=== PATIENT | male | born 1955 | race Caucasian/White ===

== ENCOUNTER → 2020-01-18 | Outpatient (CLI) | payer OTHER ==
--- NOTE | 2020-01-18 09:12 | MR ---
EXAMINATION TYPE: MR lumbar spine wo con DATE OF EXAM: 01/18/2020 COMPARISON: MRI lumbar spine June 15, 2015 HISTORY: Lumbar disc prolapse, radiculopathy TECHNIQUE: Multiplanar, multisequence imaging of the lumbar spine is performed without IV contrast. FINDINGS: Sagittal images of the lumbar spine show vertebral body heights height to remain satisfacto ry. Multilevel spondylolisthesis or grade 1 retrolisthesis L2 on L3, L3 on L4, and L4 and L5 all rede monstrated. Multilevel disc desiccation redemonstrated. This space heights fairly well maintained. T he conus medullaris remains normal in position and signal in the mid L1 level. The bone marrow signa l intensity is within normal limits. Fairly mild multilevel anterior spurring remains present. Tiny S chmorl node at superior L1 1 endplate sagittal image 8 redemonstrated. Axial images at T12-L1 level shows mild broad disc bulge minimally effaces the anterior thecal sac. P atent bilateral neural foramina. Axial images at L1-L2 level remain within normal limits. Axial images at L2-L3 level shows spondylosis with moderate broad-based posterior disc protrusion eff acing the anterior thecal sac on image 18 and causing mild bilateral anterior inferior neural foramin al narrowing. Findings prominent from prior. Axial images at L3-L4 level showed spondylosis with moderate broad-based disc bulge effacing the ante rior thecal sac and mild facet degenerative changes bilaterally. Stable mild right-sided anterior inf erior neural foraminal narrowing sagittal image 12. No significant change from prior. Axial images at the L4-L5 level show moderate broad-based disc bulge effacing the anterior thecal sac with mild facet degenerative changes bilaterally. There is mild to moderate bilateral neural foramin al narrowing right greater than left. No significant change from prior. Axial images at L5-S1 level mild facet arthropathy and mild broad disc bulge minimally effacing the a nterior thecal sac and causing mild to moderate left greater than right bilateral neural foraminal na rrowing. No significant change from prior. Paraspinal muscle bulk is maintained. IMPRESSION: Multilevel spondylolisthesis and degenerative changes in the lumbar spine as detailed abo ve. Interval progression in degenerative changes at the labeled L2-L3 level noted from prior.
== END | disposition home or self-care (01) ==
LOC: RADMRIMAIN 08:05
PROVIDERS: ATTEND Family Medicine
DX: M51.16 Intervertebral disc disorders with radiculopathy, lumbar region (principal); M47.26 Other spondylosis with radiculopathy, lumbar region; M43.16 Spondylolisthesis, lumbar region
CPT/HCPCS: 72148

== ENCOUNTER → 2020-02-02 | Outpatient (CLI) | payer OTHER ==
--- NOTE | 2020-02-02 08:39 | MR ---
EXAMINATION TYPE: MR cervical spine wo/w con DATE OF EXAM: 02/02/2020 COMPARISON: 11/09/2014 HISTORY: Neck pain, philly upper extremity weakness/pain CONTRAST: Performed utilizing 7 mL intravenous Gadavist gadolinium contrast. TECHNIQUE: Multiplanar multiecho imaging on a 3.0 Hollie magnet is performed through the cervical spin e. FINDINGS: The craniovertebral junction is normal. Vertebral body alignment is normal. There is an anterior cervical fusion extending from C4 through C7. Posterior pedicle screws are present through t hese levels. Laminectomies been performed. Disc bulging is present C3-4 and C7-T1. C3-4 level is increasing from comparison. C7-T1: Mild residual disc bulge is present with anterior thecal sac flattening. No spinal canal sten osis is present. Neural foramen appear patent.. C6-7: Mild right paracentral posterior vertebral body spurring extending towards the C5-6 level is al so here cord contact is not evident at the C6 level.. C5-6: Right paracentral spurring is present with moderate anterior thecal sac compression. This has c ord contact and cord compression. No signal abnormality within the cord is evident. No spinal canal s tenosis is present. Neural foramen are patent.. C4-5: Disc is not identified. No spinal canal stenosis or neural foraminal stenosis is present.. C3-4: Broad-based left paracentral disc herniation is present with moderate anterior thecal sac compr ession. Cord contact is evident. Mild left paracentral cord flattening may be present. AP spinal macrina l stenosis is not present. The neural foramen appear patent.. C2-3: Small right paracentral to right lateral focal disc herniation this level may have some mild im pingement of the exiting nerve root. This is stable from comparison. No suspicious enhancement is evident. IMPRESSIONS: 1. Left paracentral disc herniation C3-4 has developed over the interval has moderate anterior thecal sac compression with mild cord flattening with cord contact. 2. Right paracentral spurring at C5-6 extending towards C6-7 with cord contact and cord flattening, s table from comparison. 3. Mild residual disc bulging C7-T1, similar to prior exam.
== END | disposition home or self-care (01) ==
LOC: RADMRIMAIN 07:19
PROVIDERS: ATTEND Family Medicine
DX: M50.11 Cervical disc disorder with radiculopathy, high cervical region (principal)
CPT/HCPCS: 72156; A9585

== ENCOUNTER 2021-06-24 15:21 | Inpatient (IN) | payer OTHER ==
[2021-06-24 16:06] LABS: Albumin 3.2 g/dL (3.5-5.0); Calcium 8.6 mg/dL (8.4-10.2); Magnesium 2.1 mg/dL (1.6-2.3); Potassium 4.8 mmol/L (3.5-5.1); Total Bilirubin 0.7 mg/dL (0.2-1.3); Total Protein 6.1 g/dL (6.3-8.2)
[2021-06-24 16:11] LABS: VBG PH 7.36 (7.31-7.41)
[2021-06-24 16:27] LABS: INR 0.9 (<1.2); Prothrombin Time 9.9 sec (9.0-12.0)
--- NOTE | 2021-06-24 16:37 | ED ---
General Adult HPI - General Chief complaint: Overdose Stated complaint: Overdose Time Seen by Provider: 06/24/21 15:24 Source: patient, family, EMS, RN notes reviewed, old records reviewed Mode of arrival: ambulatory Limitations: no limitations - History of Present Illness Initial comments: 66-year-old male presenting for evaluation of abnormal breathing, cyanosis and mild confusion. Patient brought in by paramedics with suspected opiate overdose. Patient is on oral morphine. He was found to have minimal respirations with pinpoint pupils. He was given Narcan with improvement in his respiratory status and rate of breathing. At the time my evaluation patient is alert. He has mild tachypnea. No chest pain. Recently traveled back to [place] from [place]. He is a current smoker. No fever or cough. - Related Data Home Medications Medication Instructions Recorded Confirmed Ibuprofen [Motrin Ib] 400 mg PO Q8H PRN 06/24/21 06/24/21 Loratadine [Claritin] 10 mg PO DAILY PRN 06/24/21 06/24/21 Morphine Sulfate ER [Ms Contin] 60 mg PO TID 06/24/21 06/24/21 Vilazodone HCl [Viibryd] 40 mg PO HS 06/24/21 06/24/21 Allergies Allergy/AdvReac Type Severity Reaction Status Date / Time No Known Allergies Allergy Verified 06/24/21 16:32 Review of Systems ROS Statement: Those systems with pertinent positive or pertinent negative responses have been documented in the HPI. ROS Other: All systems not noted in ROS Statement are negative. 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 Absent: tenderness, meningismus Respiratory exam: Present: wheezes. Absent: respiratory distress, rhonchi Cardiovascular Exam: Present: normal rhythm, tachycardia GI/Abdominal exam: Present: soft. Absent: distended, tenderness, guarding, rebound Extremities exam: Present: normal inspection, normal capillary refill. Absent: pedal edema, calf tenderness Neurological exam: Present: alert, oriented X3, CN II-XII intact. Absent: motor sensory deficit Psychiatric exam: Present: anxious Skin exam: Present: warm, dry, intact. Absent: diaphoretic Course Vital Signs 06/24/21 06/24/21 06/24/21 15:28 15:40 16:32 Temperature 99.2 F Pulse Rate 120 H 117 H Respiratory 16 23 Rate Blood Pressure 146/81 133/71 O2 Sat by Pulse 88 L 91 L 90 L Oximetry 06/24/21 06/24/21 06/24/21 17:55 18:00 18:08 Temperature Pulse Rate 116 H 123 H 118 H Respiratory 22 Rate Blood Pressure 129/68 O2 Sat by Pulse 97 Oximetry EKG Findings - EKG Comments: EKG Findings:: EKG: Sinus tachycardia, rate of 109, OH interval 140, QRS duration 88, QTC 356, no ST segment elevation. Medical Decision Making - Medical Decision Making 66-year-old male brought in for abnormal breathing, hypoxia, suspected overdose on oral morphine. EMS and given Narcan with improvement in his respiratory stat us. He remained hypoxic and tachycardic even upon arrival although he was alert and able to answer questions. Workup was initiated, CT showing a bilateral pneumonia. This was obtained after a positive d-dimer in the setting of tachycardia and hypoxia. The CT does not show pulmonary embolism. He has a mild leukocytosis. He has a creatinine of 1.62. He has a troponin of 0.71. This level will be trended. This is likely secondary to hypoxia from his possible overdose. He'll be admitted to [facility]. Osman is aware. - Lab Data Result diagrams: 06/24/21 15:50 06/24/21 15:50 Lab Results 06/24/21 06/24/21 06/24/21 Range/Units 15:49 15:49 15:49 WBC (3.8-10.6) k/uL RBC (4.30-5.90) m/uL Hgb (13.0-17.5) gm/dL Hct (39.0-53.0) % MCV (80.0-100.0) fL MCH (25.0-35.0) pg MCHC (31.0-37.0) g/dL RDW (11.5-15.5) % Plt Count (150-450) k/uL MPV Neutrophils % % Lymphocytes % % Monocytes % % Eosinophils % % Basophils % % Neutrophils # (1.3-7.7) k/uL Lymphocytes # (1.0-4.8) k/uL Monocytes # (0-1.0) k/uL Eosinophils # (0-0.7) k/uL Basophils # (0-0.2) k/uL PT 9.9 (9.0-12.0) sec INR 0.9 (<1.2) APTT 19.6 L (22.0-30.0) sec D-Dimer 1.10 H (<0.60) mg/L FEU VBG pH (7.31-7.41) VBG pCO2 (37-51) mmHg VBG HCO3 (24-28) mmol/L Sodium (137-145) mmol/L Potassium (3.5-5.1) mmol/L Chloride (98-107) mmol/L Carbon Dioxide (22-30) mmol/L Anion Gap mmol/L BUN (9-20) mg/dL Creatinine (0.66-1.25) mg/dL Est GFR (CKD-EPI)AfAm (>60 ml/min/1.73 sqM) Est GFR (CKD-EPI)NonAf (>60 ml/min/1.73 sqM) Glucose (74-99) mg/dL Plasma Lactic Acid Terrell (0.7-2.0) mmol/L Calcium (8.4-10.2) mg/dL Magnesium (1.6-2.3) mg/dL Total Bilirubin (0.2-1.3) mg/dL AST (17-59) U/L ALT (4-49) U/L Alkaline Phosphatase (38-126) U/L Troponin I 0.071 H* (0.000-0.034) ng/mL NT-Pro-B Natriuret Pep 525 pg/mL Total Protein (6.3-8.2) g/dL Albumin (3.5-5.0) g/dL Coronavirus (PCR) (Not Detectd) 06/24/21 06/24/21 06/24/21 Range/Units 15:50 15:50 16:00 WBC 12.6 H (3.8-10.6) k/uL RBC 5.01 (4.30-5.90) m/uL Hgb 15.0 (13.0-17.5) gm/dL Hct 45.8 (39.0-53.0) % MCV 91.3 (80.0-100.0) fL MCH 30.0 (25.0-35.0) pg MCHC 32.9 (31.0-37.0) g/dL RDW 15.2 (11.5-15.5) % Plt Count 203 (150-450) k/uL MPV 7.3 Neutrophils % 90 % Lymphocytes % 3 % Monocytes % 5 % Eosinophils % 0 % Basophils % 0 % Neutrophils # 11.4 H (1.3-7.7) k/uL Lymphocytes # 0.3 L (1.0-4.8) k/uL Monocytes # 0.6 (0-1.0) k/uL Eosinophils # 0.0 (0-0.7) k/uL Basophils # 0.1 (0-0.2) k/uL PT (9.0-12.0) sec INR (<1.2) APTT (22.0-30.0) sec D-Dimer (<0.60) mg/L FEU VBG pH (7.31-7.41) VBG pCO2 (37-51) mmHg VBG HCO3 (24-28) mmol/L Sodium 137 (137-145) mmol/L Potassium 4.8 (3.5-5.1) mmol/L Chloride 104 (98-107) mmol/L Carbon Dioxide 24 (22-30) mmol/L Anion Gap 9 mmol/L BUN 37 H (9-20) mg/dL Creatinine 1.62 H (0.66-1.25) mg/dL Est GFR (CKD-EPI)AfAm 51 (>60 ml/min/1.73 sqM) Est GFR (CKD-EPI)NonAf 44 (>60 ml/min/1.73 sqM) Glucose 112 H (74-99) mg/dL Plasma Lactic Acid Terrell (0.7-2.0) mmol/L Calcium 8.6 (8.4-10.2) mg/dL Magnesium 2.1 (1.6-2.3) mg/dL Total Bilirubin 0.7 (0.2-1.3) mg/dL AST 46 (17-59) U/L ALT 15 (4-49) U/L Alkaline Phosphatase 95 (38-126) U/L Troponin I (0.000-0.034) ng/mL NT-Pro-B Natriuret Pep pg/mL Total Protein 6.1 L (6.3-8.2) g/dL Albumin 3.2 L (3.5-5.0) g/dL Coronavirus (PCR) Not Detected (Not Detectd) 06/24/21 06/24/21 Range/Units 16:04 17:22 WBC (3.8-10.6) k/uL RBC (4.30-5.90) m/uL Hgb (13.0-17.5) gm/dL Hct (39.0-53.0) % MCV (80.0-100.0) fL MCH (25.0-35.0) pg MCHC (31.0-37.0) g/dL RDW (11.5-15.5) % Plt Count (150-450) k/uL MPV Neutrophils % % Lymphocytes % % Monocytes % % Eosinophils % % Basophils % % Neutrophils # (1.3-7.7) k/uL Lymphocytes # (1.0-4.8) k/uL Monocytes # (0-1.0) k/uL Eosinophils # (0-0.7) k/uL Basophils # (0-0.2) k/uL PT (9.0-12.0) sec INR (<1.2) APTT (22.0-30.0) sec D-Dimer (<0.60) mg/L FEU VBG pH 7.36 (7.31-7.41) VBG pCO2 41 (37-51) mmHg VBG HCO3 23 L (24-28) mmol/L Sodium (137-145) mmol/L Potassium (3.5-5.1) mmol/L Chloride (98-107) mmol/L Carbon Dioxide (22-30) mmol/L Anion Gap mmol/L BUN (9-20) mg/dL Creatinine (0.66-1.25) mg/dL Est GFR (CKD-EPI)AfAm (>60 ml/min/1.73 sqM) Est GFR (CKD-EPI)NonAf (>60 ml/min/1.73 sqM) Glucose (74-99) mg/dL Plasma Lactic Acid Terrell 1.7 (0.7-2.0) mmol/L Calcium (8.4-10.2) mg/dL Magnesium (1.6-2.3) mg/dL Total Bilirubin (0.2-1.3) mg/dL AST (17-59) U/L ALT (4-49) U/L Alkaline Phosphatase (38-126) U/L Troponin I (0.000-0.034) ng/mL NT-Pro-B Natriuret Pep pg/mL Total Protein (6.3-8.2) g/dL Albumin (3.5-5.0) g/dL Coronavirus (PCR) (Not Detectd) Disposition Clinical Impression: Accidental drug overdose, Bilateral pneumonia, Troponin level elevated Disposition: ADMITTED IP TO THIS [facility] Condition: Stable Is patient prescribed a controlled substance at d/c from ED?: No Referrals: Zachary Meek MD [Primary Care Provider] - 1-2 days Decision to Admit Reason: Admit from EC Decision Date: 06/24/21 Decision Time: 18:52
[2021-06-24 16:43] LABS: Partial Thromboplastin Time 19.6 sec (22.0-30.0)
[2021-06-24] MEDS ORDERED: SODIUM CHLORIDE 0.9% 1,000 ML IV ONE (16:46)
[2021-06-24 16:50] LABS: Basophils # (A) 0.1 k/uL (0-0.2); Basophils % (A) 0 %; Eosinophils % (A) 0 %; HCT 45.8 % (39.0-53.0); Lymphocytes # (A) 0.3 k/uL (1.0-4.8); Lymphocytes % (A) 3 %; MCHC 32.9 g/dL (31.0-37.0); MCV 91.3 fL (80.0-100.0); Mean Platelet Volume 7.3; Monocytes # (A) 0.6 k/uL (0-1.0); Monocytes % (A) 5 %; Neutrophils # (A) 11.4 k/uL (1.3-7.7); Neutrophils % (A) 90 %; Platelet Count 203 k/uL (150-450); RBC 5.01 m/uL (4.30-5.90); RDW 15.2 % (11.5-15.5); WBC 12.6 k/uL (3.8-10.6)
--- NOTE | 2021-06-24 17:05 | XR ---
EXAMINATION TYPE: XR chest 2V DATE OF EXAM: 06/24/2021 COMPARISON: None available HISTORY: Difficulty in breathing TECHNIQUE: Frontal and lateral views of the chest are obtained. FINDINGS: Heterogeneous opacity seen in the left lung base with a smaller one in the right lung base, possibly representing pneumonia, please correlate clinically. Follow-up to resolution is advised in 6-8 weeks. Smaller opacities seen in the left midlung zone. No sizable pleural effusion or definite pneumothorax . No gross cardiomegaly. Degenerative changes of the thoracic spine. Right humeral head prosthesis. IMPRESSION: Suspected pneumonia as detailed above, for clinical correlation and follow-up to resolution.
[2021-06-24] MEDS ORDERED: cefTRIAXone IN SWFI 1,000 MG/10 ML SYRINGE IVP STA (17:18)
[2021-06-24] MEDS ORDERED: AZITHROMYCIN 500 MG in SODIUM CHLORIDE 0.9% 250 ML IVPB STA (17:18)
[2021-06-24] MEDS ORDERED: ALBUTEROL NEBULIZED 2.5 MG/3 ML INHALATION STA (17:19)
[2021-06-24] MEDS ORDERED: IPRATROPIUM-ALBUTEROL 3 ML NEB INHALATION STA (17:19)
[2021-06-24] MEDS: SODIUM CHLORIDE 0.9% 1,000 ML IV SCH (17:39)
--- NOTE | 2021-06-24 17:50 | CT ---
EXAMINATION TYPE: CT angio chest DATE OF EXAM: 06/24/2021 COMPARISON: None HISTORY: Difficulty breathing CT DLP: 302.1 mGycm Automated exposure control for dose reduction was used. CONTRAST: Performed with IV Contrast, patient injected with 75 mL of Isovue 370. There are Three-D postprocessed images. Images obtained from the thoracic inlet to the diaphragm with IV contrast. There is some patchy reticular nodular infiltrate in the mid and lower lung trivedi. There is some coa lescent density at the left lower lobe. There is no pleural effusion. Heart size is normal. There are no hilar masses. There are a few bronchial bilateral lymph nodes up to 1.5 cm. There is no pericardi al effusion. The ascending aorta measures 4.4 cm. There is no dissection. There is no evidence of filling defect in the pulmonary arteries. Thoracic spine is intact. No compression fracture. There is degenerative spurring in the thoracic spi ne. IMPRESSION: No evidence of pulmonary embolism. Extensive bilateral lower lobe pneumonia. Mild bilateral bronchial adenopathy. 4.4 cm aneurysm of the ascending aorta.
[2021-06-24] MEDS ORDERED: IPRATROPIUM-ALBUTEROL 3 ML NEB INHALATION PRN (18:49)
[2021-06-24] MEDS: IPRATROPIUM-ALBUTEROL 3 ML NEB INHALATION SCH (19:44)
--- NOTE | 2021-06-24 22:56 | P.HPIM ---
History of Present Illness H&P Date: 06/24/21 The patient is a 66-year-old male with a PMH o chronic neck and lower back pain who was brought in to the EMS for suspected opiate overdose. History obtained from the chart as the patient was confused at the time of interview. As per the ED physician and the EMS documentation, the patient normally takes 60 mg of morphine orally 3 times a day, and was found by his looking pale and bradypneic. History also supplemented by the via phone ([phone]). She notes that they traveled to [place] last Thursday, and that the patient developed gradual onset fatigue with cough over the past 5 days. She notes that while in [place], the patient was swimming in pools and they visited local attractions and aquariums during the day-time. They returned back to [place] today via plane and upon returning home the patient reportedly was lethargic and eventually became cyanotic, at which time the activated EMS. Upon arrival of EMS, the patient was noted to be cyanotic, with pinpoint pupils and respiratory rate 2-3 breaths per minute. He was given Narcan with immediate improvement in his symptoms including his respiratory rate. The patient is able to state that he does take the morphine multiple times a day but is not able to recall if he took any extra doses today. He is also unable to recall the events of the day. He further reported feeling short of breath at the time of int erview as well as nauseous. Denied experiencing chest discomfort, abdominal pain, fever, chills, cough, diarrhea. Denied headaches, weakness, numbness. The patient was hypoxic and tachycardic at presentation to the emergency room with SpO2 88% on room air and pulse 120. Chest CTA revealed extensive bilateral lower lobe pneumonia with bilateral bronchial adenopathy. EKG revealed sinus tachycardia at 109 bpm with no additional abnormality noted. Laboratory evaluation was remarkable for WBC 12.6, BUN 37, creatinine 1.62, troponin 0.071, and proBNP 525. Review of systems: Pertinent positives and negatives as discussed in HPI, a complete review of systems was performed and all other systems are negative. Physical examination: General: non toxic, in mild respiratory distress, appears at stated age, normal weight Derm: no unusual rashes/lesions no unusual ecchymoses, warm, dry Head: atraumatic, normocephalic, symmetric Eyes: EOMI, no lid lag, anicteric sclera, pupils equal round reactive to light ENT: Nose and ears atraumatic, no thrush, no pharyngeal erythema Neck: No thyromegaly, no cervical lymphadenopathy, trachea midline, supple Mouth: no lip lesion, mucus membranes moist Cardiovascular: S1S2 reg, no murmur, positive posterior tibial pulse bilateral, no edema, capillary refill less than 2 seconds Lungs: CTA bilateral, no rhonchi, no rales , no accessory muscle use Abdominal: soft, nontender to palpation, no guarding, no appreciable organomegaly, normal bowel sounds Ext: no gross muscle atrophy, muscle strength 5 out of 5 in all 4 extremities grossly, no contractures, Neuro: CN II-XI grossly intact, light touch intact all 4 extremities, finger to nose within normal limits, Psych: Alert, oriented to person and place only, not oriented to time Assessment/plan Suspected opiate toxicity in setting of MARIALUISA -Continue to monitor for signs of overdose -Narcan when necessary -IVFs Acute hypoxic respiratory failure, likely community-acquired pneumonia -Continue IV antibiotics: Azithromycin and ceftriaxone Acute kidney injury, likely due to acute Srinivasan and dehydration -IV fluids -Monitor BMP Elevated troponin, likely type II NM in setting of demand ischemia with hypoxia -Trend troponin -Cardiac monitoring -Cardiology consult DVT prophylaxis -Heparin subcu The patient is admitted with an anticipated greater than 2 midnight stay for evaluation of opiate toxicity CODE STATUS: Full Code Discussed with: Patient Anticipated discharge date: 06/[address]: Home Past Medical History 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 History of Any Multi-Drug Resistant Organisms: None Reported Additional Past Surgical History / Comment(s): spinal fusion Past Psychological History: No Psychological Hx Reported Smoking Status: Current every day smoker Past Alcohol Use History: None Reported Past Drug Use History: Prescription Drug Abuse - Past Family History Father Family Medical History: Myocardial Infarction (NM) Mother Family Medical History: Congestive Heart Failure (CHF) Medications and Allergies Home Medications Medication Instructions Recorded Confirmed Type Ibuprofen [Motrin Ib] 400 mg PO Q8H PRN 06/24/21 06/24/21 History Loratadine [Claritin] 10 mg PO DAILY PRN 06/24/21 06/24/21 History Morphine Sulfate ER [Ms Contin] 60 mg PO TID 06/24/21 06/24/21 History Vilazodone HCl [Viibryd] 40 mg PO HS 06/24/21 06/24/21 History Allergies Allergy/AdvReac Type Severity Reaction Status Date / Time No Known Allergies Allergy Verified 06/24/21 16:32 Physical Exam Vitals: Vital Signs Temp Pulse Resp BP Pulse Ox 06/24/21 20:36 117 H 24 130/65 91 L 06/24/21 19:54 104 H 06/24/21 19:44 116 H 94 L 06/24/21 19:36 114 H 22 117/84 92 L 06/24/21 18:08 118 H 06/24/21 18:00 123 H 22 129/68 97 06/24/21 17:55 116 H 06/24/21 16:32 117 H 23 133/71 90 L 06/24/21 15:40 91 L 06/24/21 15:28 99.2 F 120 H 16 146/81 88 L Intake and Output 06/24/21 06/24/21 06/24/21 06:59 14:59 22:59 Other: Weight 77.111 kg Results CBC & Chem 7: 06/24/21 15:50 06/24/21 15:50 Labs: Abnormal Lab Results - Last 24 Hours (Table) 06/24/21 06/24/21 06/24/21 Range/Units 15:49 15:49 15:50 WBC 12.6 H (3.8-10.6) k/uL Neutrophils # 11.4 H (1.3-7.7) k/uL Lymphocytes # 0.3 L (1.0-4.8) k/uL APTT 19.6 L (22.0-30.0) sec D-Dimer 1.10 H (<0.60) mg/L FEU VBG HCO3 (24-28) mmol/L BUN (9-20) mg/dL Creatinine (0.66-1.25) mg/dL Glucose (74-99) mg/dL Troponin I 0.071 H* (0.000-0.034) ng/mL Total Protein (6.3-8.2) g/dL Albumin (3.5-5.0) g/dL 06/24/21 06/24/21 Range/Units 15:50 16:04 WBC (3.8-10.6) k/uL Neutrophils # (1.3-7.7) k/uL Lymphocytes # (1.0-4.8) k/uL APTT (22.0-30.0) sec D-Dimer (<0.60) mg/L FEU VBG HCO3 23 L (24-28) mmol/L BUN 37 H (9-20) mg/dL Creatinine 1.62 H (0.66-1.25) mg/dL Glucose 112 H (74-99) mg/dL Troponin I (0.000-0.034) ng/mL Total Protein 6.1 L (6.3-8.2) g/dL Albumin 3.2 L (3.5-5.0) g/dL
--- NOTE | 2021-06-24 23:05 | CT ---
EXAMINATION TYPE: CT brain wo con DATE OF EXAM: 06/24/2021 COMPARISON: None HISTORY: AMS CT DLP: 1153.4 mGycm Automated exposure control for dose reduction was used. Images of the brain obtained without contrast. Ventricles have normal size. There is no mass effect or midline shift. There is no sign of intracrani al hemorrhage. Calvarium is intact. There is very little pneumatization of the mastoid sinuses. IMPRESSION: Negative unenhanced head CT scan.
[2021-06-24] MEDS: methylPREDNISolone SOD SUCCI 125 MG/2 ML VIAL IV SCH (23:23)
[2021-06-24] MEDS: HEPARIN SODIUM,PORCINE/PF 5,000 UNIT/0.5 ML SYRINGE SQ SCH (23:24)
[2021-06-25] MEDS: SODIUM CHLORIDE 0.9% 1,000 ML IV SCH ×4 (06:00→23:58)
[2021-06-25] MEDS: methylPREDNISolone SOD SUCCI 125 MG/2 ML VIAL IV SCH ×4 (06:02→23:53)
[2021-06-25] MEDS: IPRATROPIUM-ALBUTEROL 3 ML NEB INHALATION SCH ×4 (08:27→19:59)
[2021-06-25] MEDS: HEPARIN SODIUM,PORCINE/PF 5,000 UNIT/0.5 ML SYRINGE SQ SCH ×3 (08:34→23:54)
[2021-06-25] MEDS: AZITHROMYCIN 250 MG TAB PO SCH (08:35)
[2021-06-25 09:05] LABS: ALT 13 U/L (4-49); AST 35 U/L (17-59); African American GFR (CKD) >90 (>60 ml/min/1.73 sqM); Albumin 2.4 g/dL (3.5-5.0); Alkaline Phosphatase 66 U/L (38-126); Anion Gap 7 mmol/L; Blood Urea Nitrogen 23 mg/dL (9-20); Calcium 7.6 mg/dL (8.4-10.2); Carbon Dioxide 24 mmol/L (22-30); Chloride 112 mmol/L (98-107); Glucose 166 mg/dL (74-99); Magnesium 2.1 mg/dL (1.6-2.3); Non-African American GFR(CKD) 80 (>60 ml/min/1.73 sqM); Potassium 5.3 mmol/L (3.5-5.1); Sodium 143 mmol/L (137-145); Total Bilirubin 0.6 mg/dL (0.2-1.3); Total Protein 4.9 g/dL (6.3-8.2)
[2021-06-25 09:21] LABS: HCT 40.5 % (39.0-53.0); HGB 12.9 gm/dL (13.0-17.5); MCHC 31.9 g/dL (31.0-37.0); MCV 94.2 fL (80.0-100.0); Platelet Count 214 k/uL (150-450); RDW 15.4 % (11.5-15.5); WBC 9.6 k/uL (3.8-10.6)
[2021-06-25] MEDS ORDERED: SODIUM CHLORIDE 0.9% 1,000 ML IV ONE (09:30)
[2021-06-25 09:38] LABS: Band Neutrophils % 17 %; Lymphocytes # (M) 0.19 k/uL (1.0-4.8); Monocytes # (M) 0.67 k/uL (0-1.0); Neutrophils % (M) 74 %; Nucleated Red Blood Cells 0 /100 WBC (0-0); Total Cells Counted 100
--- NOTE | 2021-06-25 11:59 | P.CRDCN ---
History of Present Illness History of present illness: HISTORY OF PRESENTING ILLNESS This is a pleasant 66-year-old male past medical history significant for osteoarthritis, status post prior spinal fusion, chronic neck and back pain, depression. No known history of cardiac disease. 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 We have been asked to see in consultation for elevated troponin. Patient presents emergency department with increased confusion. Patient unable to state why he is in the hospital. Currently does not have any complaints. Denies shortness of breath or chest pain. Patient was found by his looking pale and breathing slow. There is concern the patient has suspected opiate overdose. Patient also recently traveled to [place] last Thursday and developed gradual onset of fatigue, cough over the past 5 days. They returned back to [place] yesterday and upon returning home the patient's found the patient more lethargic and appeared cyanotic in the activated EMS. Upon arrival of EMS patient was noted to be cyanotic with pinpoint pupils and decreased respiratory rate. Narcan was given and patient had improvement in his symptoms. Patient is not fully back to baseline but improving. He denies any chest pain, palpitations, shortness of breath, lightheadedness or dizziness. He denies history of CAD, stroke, diabetes. He does currently smoke cigarettes daily. He states he takes morphine for his chronic neck pain. DIAGNOSTICS EKG reveals sinus tachycardia, heart rate 109, T wave inversion in lead aVL, no acute ST ST wave abnormalities suggest ischemia Telemetry tracings indicate sinus mechanism, heart rate 90s to 115 Most recent echocardiogram 2016 revealed an EF of 5560%, mild aortic valve sc lerosis without stenosis, mild MR, mild TR Chest CT revealed no evidence of pulmonary embolism. Extensive bilateral lower lobe pneumonia. 4.4cm aneurysm of ascending aorta Brain CT with no acute intracranial abnormality Laboratory reviewed, troponin 0.07, 0.06, proBNP 525, sodium 143, potassium 5.3, BUN 23, serum creatinine 0.9, lactate 2.1, albumin 2.4 WBC 9.6, hemoglobin 12.9, platelets 214, Current home medications include morphine sulfate 60 mg 3 times a day, Claritin, vilazodone REVIEW OF SYSTEMS At the time of my exam: CONSTITUTIONAL: Denies fever or chills. CARDIOVASCULAR: Denies chest pain, shortness of breath, orthopnea, PND or palpitations. RESPIRATORY: Denies cough. GASTROINTESTINAL: Denies abdominal pain, diarrhea, constipation, nausea or vomiting. MUSCULOSKELETAL: Denies myalgias. NEUROLOGIC: Denies numbness, tingling, headacbe or weakness. ENDOCRINE: Denies fatigue, weight change, polydipsia or polyurina. GENITOURINARY: Denies burning, hematuria or urgency with micturation. HEMATOLOGIC: Denies history of anemia or bleeding. PHYSICAL EXAMINATION Blood pressure 124/68, heart rate 81, afebrile, saturations 97% on 4 L nasal cannula CONSTITUTIONAL: No apparent distress. HEENT: Head is normocephalic. Pupils are equal, round. Sclerae anicteric. Mucous membranes of the mouth are moist. No JVD. No carotid bruit. CHEST EXAMINATION: Lungs are clear to auscultation. No chest wall tenderness is noted on palpation or with deep breathing. HEART EXAMINATION: Regular rate and rhythm. S1, S2 heard. No murmurs, gallops or rub. ABDOMEN: Soft, nontender. Positive bowel sounds. EXTREMITIES: 2+ peripheral pulses, no lower extremity edema and no calf tenderness. NEUROLOGIC EXAMINATION: Patient is awake, alert and oriented x3. ASSESSMENT Elevated troponin, likely type II mechanism due to hypoxia and supply and demand mismatch. Not indicative of acute coronary syndrome Suspected opiate toxicity Bilateral Pneumonia Acute kidney injury, improved with IV fluids PLAN Elevated troponin, not indicative of acute coronary syndrome, patient without chest pain, no evidence of acute ischemia on EKG, likely type II [place] due to hypoxia and demand ischemia. Obtain 2D echocardiogram and doppler study to assess cardiac structure and function. If echo with no acute findings, no further inpatient workup from a cardiology perspective for elevated troponin Rest of management per primary Nurse practitioner note has been reviewed by physician. Signing provider agrees with the documented findings, assessment, and plan of care. Past Medical History Past Medical History: Osteoarthritis (OA) 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 History of Any Multi-Drug Resistant Organisms: None Reported Additional Past Surgical History / Comment(s): spinal fusion Past Anesthesia/Blood Transfusion Reactions: No Reported Reaction Past Psychological History: No Psychological Hx Reported Smoking Status: Current every day smoker Past Alcohol Use History: None Reported Past Drug Use History: Prescription Drug Abuse - Past Family History Father Family Medical History: Myocardial Infarction (OK) Mother Family Medical History: Congestive Heart Failure (CHF) Medications and Allergies Home Medications Medication Instructions Recorded Confirmed Type Ibuprofen [Motrin Ib] 400 mg PO Q8H PRN 06/24/21 06/24/21 History Loratadine [Claritin] 10 mg PO DAILY PRN 06/24/21 06/24/21 History Morphine Sulfate ER [Ms Contin] 60 mg PO TID 06/24/21 06/24/21 History Vilazodone HCl [Viibryd] 40 mg PO HS 06/24/21 06/24/21 History Allergies Allergy/AdvReac Type Severity Reaction Status Date / Time No Known Allergies Allergy Verified 06/24/21 16:32 Physical Exam Vitals: Vital Signs Temp Pulse Pulse Resp BP BP BP 06/25/21 08:39 100 06/25/21 08:28 100 06/25/21 08:20 98.4 F 99 18 125/62 110/66 06/25/21 04:00 98.6 F 108 H 18 120/70 06/25/21 00:00 109 H 20 118/61 06/24/21 21:58 98.5 F 117 H 18 140/68 06/24/21 20:36 117 H 24 130/65 06/24/21 19:54 104 H 06/24/21 19:44 116 H 06/24/21 19:36 114 H 22 117/84 06/24/21 18:08 118 H 06/24/21 18:00 123 H 22 129/68 06/24/21 17:55 116 H 06/24/21 16:32 117 H 23 133/71 06/24/21 15:40 06/24/21 15:28 99.2 F 120 H 16 146/81 Pulse Ox 06/25/21 08:39 06/25/21 08:28 06/25/21 08:20 98 06/25/21 04:00 97 06/25/21 00:00 94 L 06/24/21 21:58 93 L 06/24/21 20:36 91 L 06/24/21 19:54 06/24/21 19:44 94 L 06/24/21 19:36 92 L 06/24/21 18:08 06/24/21 18:00 97 06/24/21 17:55 06/24/21 16:32 90 L 06/24/21 15:40 91 L 06/24/21 15:28 88 L Intake and Output 06/24/21 06/25/21 06/25/21 22:59 06:59 14:59 Other: # Voids 1 Weight 77.111 kg Results 06/25/21 08:35 06/25/21 08:35 Cardiac Enzymes 06/24/21 06/24/21 06/24/21 Range/Units 15:49 15:50 21:50 AST 46 (17-59) U/L Troponin I 0.071 H* 0.068 H* (0.000-0.034) ng/mL 06/25/21 Range/Units 08:35 AST 35 (17-59) U/L Troponin I (0.000-0.034) ng/mL Coagulation 06/24/21 Range/Units 15:49 PT 9.9 (9.0-12.0) sec APTT 19.6 L (22.0-30.0) sec CBC 06/24/21 Range/Units 15:50 WBC 12.6 H (3.8-10.6) k/uL RBC 5.01 (4.30-5.90) m/uL Hgb 15.0 (13.0-17.5) gm/dL Hct 45.8 (39.0-53.0) % Plt Count 203 (150-450) k/uL Comprehensive Metabolic Panel 06/24/21 06/25/21 Range/Units 15:50 08:35 Sodium 137 143 (137-145) mmol/L Potassium 4.8 5.3 H (3.5-5.1) mmol/L Chloride 104 112 H (98-107) mmol/L Carbon Dioxide 24 24 (22-30) mmol/L BUN 37 H 23 H (9-20) mg/dL Creatinine 1.62 H 0.99 (0.66-1.25) mg/dL Glucose 112 H 166 H (74-99) mg/dL Calcium 8.6 7.6 L (8.4-10.2) mg/dL AST 46 35 (17-59) U/L ALT 15 13 (4-49) U/L Alkaline Phosphatase 95 66 (38-126) U/L Total Protein 6.1 L 4.9 L (6.3-8.2) g/dL Albumin 3.2 L 2.4 L (3.5-5.0) g/dL Current Medications Generic Name Dose Route Start Last Admin Trade Name Freq PRN Reason Stop Dose Admin Albuterol/Ipratropium 3 ml 06/24/21 18:49 Ipratropium-Albuterol 3 Ml Neb INHALATION RT-Q4H PRN Shortness Of Breath Or Wheezing Albuterol/Ipratropium 3 ml 06/24/21 20:00 06/25/21 08:27 Ipratropium-Albuterol 3 Ml Neb INHALATION 3 ml RT-QID JETHRO Administration Azithromycin 250 mg 06/25/21 09:00 06/25/21 08:35 Azithromycin 250 Mg Tab PO 06/27/21 09:01 250 mg DAILY JETHRO Administration Protocol Heparin Sodium (Porcine) 5,000 unit 06/25/21 00:00 06/25/21 08:34 Heparin Sodium,Porcine/Pf 5,000 Unit/0.5 Ml Syringe SQ 5,000 unit Q8HR JETHRO Administration Sodium Chloride 1,000 mls @ 130 mls/hr 06/24/21 17:30 06/25/21 08:35 Saline 0.9% IV 130 mls/hr .Q7H42M JETHRO Administration Ceftriaxone Sodium 1 gm/ 50 mls @ 100 mls/hr 06/25/21 09:00 06/25/21 08:35 Sodium Chloride IVPB 100 mls/hr Q24HR JETHRO Administration Protocol Methylprednisolone Sodium Succinate 60 mg 06/25/21 00:00 06/25/21 06:02 Methylprednisolone Sod Succi 125 Mg/2 Ml Vial IV 60 mg Q6HR JETHRO Administration Intake and Output 06/24/21 06/25/21 06/25/21 22:59 06:59 14:59 Other: # Voids 1 Weight 77.111 kg 06/24/21 15:50 06/25/21 08:35
--- NOTE | 2021-06-25 12:40 | ECHOF ---
Referral Reason:SOB MEASUREMENTS -------- HEIGHT: 180.3 cm WEIGHT: 77.1 kg BP: RVIDd: 2.3 cm (< 3.3) IVSd: 1.0 cm (0.6 - 1.1) LVIDd: 4.6 cm (3.9 - 5.3) LVPWd: 1.0 cm (0.6 - 1.1) IVSs: 2.0 cm LVIDs: 3.1 cm LVPWs: 1.3 cm Ao Diam: 3.7 cm (2.0 - 3.7) AV Cusp: 2.0 cm (1.5 - 2.6) LA Diam: 3.3 cm (2.7 - 3.8) MV EXCURSION: 15.271 mm (> 18.000) MV EF SLOPE: 90 mm/s (70 - 150) EPSS: 2.3 cm MV E Oli: 0.75 m/s MV DecT: 211 ms MV A Oli: 0.69 m/s MV E/A Ratio: 1.09 RAP: 5.00 mmHg RVSP: 10.90 mmHg FINDINGS -------- This was a technically difficult study with suboptimal views. The left ventricular size is normal. Left ventricular wall thickness is normal. Overall left vent ricular systolic function is low-normal with, an EF between 50 - 55 %. The right ventricle is normal in size. The left atrial size is normal. The right atrial size is normal. Lumason used The aortic valve is trileaflet and appears structurally normal. The mitral valve is normal. There is trace mitral regurgitation. The tricuspid valve appears structurally normal. Trace tricuspid regurgitation present. Right alma delia tricular systolic pressure is normal at < 35 mmHg. There is no pulmonic regurgitation present. The aortic root size is normal. IVC Not well visulized. There is no pericardial effusion. CONCLUSIONS -------- 1. The left ventricular size is normal. 2. Left ventricular wall thickness is normal. 3. Overall left ventricular systolic function is low-normal with, an EF between 50 - 55 %. 4. There is trace mitral regurgitation. 5. Trace tricuspid regurgitation present. 6. There is no pericardial effusion. RETAIL EVENT COORDINATOR: Rufina Ham RDCS
--- NOTE | 2021-06-25 15:41 | P.PN ---
Subjective Progress Note Date: 06/25/21 Patient still complaining of shortness of breath. Denies pain. Gen: awake, alert HEENT: normocephalic, atraumatic, good hearing acuity, moist mucous membranes Resp: good air exchange, breathing comfortably with no accessory muscle use CVS: good distal perfusion x 4, GI: soft, NTTP, ND : no SPT, no CVAT, kendall catheter not present MSK: no pitting edema, no clubbing Neuro: non-focal, moving all extremities Psych: cooperative, euthymic mood Assessment/plan: Suspected opiate toxicity in setting of MARIALUISA -Continue to monitor for signs of overdose -Narcan when necessary -IVFs Acute hypoxic respiratory failure, likely community-acquired pneumonia -Continue IV antibiotics: Azithromycin and ceftriaxone Acute kidney injury, likely due to acute Srinivasan and dehydration -IV fluids -Monitor BMP Elevated troponin, likely type II MA in setting of demand ischemia with hypoxia -Trend troponin -Cardiac monitoring -Cardiology consult DVT prophylaxis -Heparin subcu The patient is admitted with an anticipated greater than 2 midnight stay for evaluation of opiate toxicity CODE STATUS: Full Code Discussed with: Patient Anticipated discharge date: 06/[address]: Home Objective - Vital Signs Vital signs: Vital Signs Temp 98.0 F 06/25/21 11:53 Pulse 98 06/25/21 15:39 Resp 18 06/25/21 11:53 BP 111/64 06/25/21 11:53 Pulse Ox 97 06/25/21 11:53 Intake & Output 06/24/21 06/25/21 06/25/21 18:59 06:59 18:59 Intake Total 2090 Output Total 600 Balance 1490 Weight 77.111 kg 77.111 kg Intake: IV 2090 Sodium Chloride 0.9% 1, 1040 000 ml @ 130 mls/hr IV . Q7H42M JETHRO Rx#:[id number] Sodium Chloride 0.9% 1, 1000 000 ml @ 999 mls/hr IV . Q1H1M ONE Rx#:[id number] cefTRIAXone 1 gm In 50 Sodium Chloride 0.9% 50 ml @ 100 mls/hr IVPB Q24HR JETHRO Rx#:[id number] Output: Gastric Drainage 0 Urine 600 Emesis 0 Oral Regurgitation 0 Other 0 Other: # Voids 1 2 # Bowel Movements 2 - Labs CBC & Chem 7: 06/25/21 08:35 06/25/21 08:35 Labs: Abnormal Lab Results - Last 24 Hours (Table) 06/24/21 06/24/21 06/24/21 Range/Units 15:49 15:49 15:50 WBC 12.6 H (3.8-10.6) k/uL Hgb (13.0-17.5) gm/dL Neutrophils # 11.4 H (1.3-7.7) k/uL Neutrophils # (Manual) (1.3-7.7) k/uL Lymphocytes # 0.3 L (1.0-4.8) k/uL Lymphocytes # (Manual) (1.0-4.8) k/uL APTT 19.6 L (22.0-30.0) sec D-Dimer 1.10 H (<0.60) mg/L FEU VBG HCO3 (24-28) mmol/L Potassium (3.5-5.1) mmol/L Chloride (98-107) mmol/L BUN (9-20) mg/dL Creatinine (0.66-1.25) mg/dL Glucose (74-99) mg/dL Plasma Lactic Acid Terrell (0.7-2.0) mmol/L Calcium (8.4-10.2) mg/dL Troponin I 0.071 H* (0.000-0.034) ng/mL Total Protein (6.3-8.2) g/dL Albumin (3.5-5.0) g/dL 06/24/21 06/24/21 06/24/21 Range/Units 15:50 16:04 21:50 WBC (3.8-10.6) k/uL Hgb (13.0-17.5) gm/dL Neutrophils # (1.3-7.7) k/uL Neutrophils # (Manual) (1.3-7.7) k/uL Lymphocytes # (1.0-4.8) k/uL Lymphocytes # (Manual) (1.0-4.8) k/uL APTT (22.0-30.0) sec D-Dimer (<0.60) mg/L FEU VBG HCO3 23 L (24-28) mmol/L Potassium (3.5-5.1) mmol/L Chloride (98-107) mmol/L BUN 37 H (9-20) mg/dL Creatinine 1.62 H (0.66-1.25) mg/dL Glucose 112 H (74-99) mg/dL Plasma Lactic Acid Terrell (0.7-2.0) mmol/L Calcium (8.4-10.2) mg/dL Troponin I 0.068 H* (0.000-0.034) ng/mL Total Protein 6.1 L (6.3-8.2) g/dL Albumin 3.2 L (3.5-5.0) g/dL 06/25/21 06/25/21 06/25/21 Range/Units 08:35 08:35 08:35 WBC (3.8-10.6) k/uL Hgb 12.9 L (13.0-17.5) gm/dL Neutrophils # (1.3-7.7) k/uL Neutrophils # (Manual) 8.70 H (1.3-7.7) k/uL Lymphocytes # (1.0-4.8) k/uL Lymphocytes # (Manual) 0.19 L (1.0-4.8) k/uL APTT (22.0-30.0) sec D-Dimer (<0.60) mg/L FEU VBG HCO3 (24-28) mmol/L Potassium 5.3 H (3.5-5.1) mmol/L Chloride 112 H (98-107) mmol/L BUN 23 H (9-20) mg/dL Creatinine (0.66-1.25) mg/dL Glucose 166 H (74-99) mg/dL Plasma Lactic Acid Terrell 2.1 H* (0.7-2.0) mmol/L Calcium 7.6 L (8.4-10.2) mg/dL Troponin I (0.000-0.034) ng/mL Total Protein 4.9 L (6.3-8.2) g/dL Albumin 2.4 L (3.5-5.0) g/dL 06/25/21 Range/Units 11:50 WBC (3.8-10.6) k/uL Hgb (13.0-17.5) gm/dL Neutrophils # (1.3-7.7) k/uL Neutrophils # (Manual) (1.3-7.7) k/uL Lymphocytes # (1.0-4.8) k/uL Lymphocytes # (Manual) (1.0-4.8) k/uL APTT (22.0-30.0) sec D-Dimer (<0.60) mg/L FEU VBG HCO3 (24-28) mmol/L Potassium (3.5-5.1) mmol/L Chloride (98-107) mmol/L BUN (9-20) mg/dL Creatinine (0.66-1.25) mg/dL Glucose (74-99) mg/dL Plasma Lactic Acid Terrell 2.9 H* (0.7-2.0) mmol/L Calcium (8.4-10.2) mg/dL Troponin I (0.000-0.034) ng/mL Total Protein (6.3-8.2) g/dL Albumin (3.5-5.0) g/dL
[2021-06-25] MEDS: NICOTINE 21MG/24HR PATCH TRANSDERM SCH (16:36)
[2021-06-25] MEDS ORDERED: MORPHINE SULFATE 2 MG/ML SYRINGE IVP STA (21:21)
[2021-06-25] MEDS: MORPHINE SULFATE ER 30 MG TABLET PO SCH (23:53)
[2021-06-26] MEDS: methylPREDNISolone SOD SUCCI 125 MG/2 ML VIAL IV SCH ×4 (06:24→22:43)
[2021-06-26] MEDS: SODIUM CHLORIDE 0.9% 1,000 ML IV SCH ×4 (07:30→20:33)
[2021-06-26] MEDS: NICOTINE 21MG/24HR PATCH TRANSDERM SCH (08:16)
[2021-06-26] MEDS: MORPHINE SULFATE ER 30 MG TABLET PO SCH ×2 (08:16→16:32)
[2021-06-26 08:48] LABS: Basophils # (A) 0.1 k/uL (0-0.2); Basophils % (A) 1 %; Eosinophils % (A) 0 %; HGB 12.6 gm/dL (13.0-17.5); Lymphocytes # (A) 0.5 k/uL (1.0-4.8); Lymphocytes % (A) 4 %; MCH 28.7 pg (25.0-35.0); MCHC 30.7 g/dL (31.0-37.0); MCV 93.5 fL (80.0-100.0); Mean Platelet Volume 7.8; Monocytes # (A) 0.4 k/uL (0-1.0); Monocytes % (A) 3 %; Neutrophils # (A) 13.6 k/uL (1.3-7.7); Neutrophils % (A) 93 %; Platelet Count 236 k/uL (150-450); RBC 4.39 m/uL (4.30-5.90); WBC 14.7 k/uL (3.8-10.6)
[2021-06-26 08:57] LABS: African American GFR (CKD) >90 (>60 ml/min/1.73 sqM); Anion Gap 7 mmol/L; Blood Urea Nitrogen 28 mg/dL (9-20); Calcium 7.7 mg/dL (8.4-10.2); Carbon Dioxide 23 mmol/L (22-30); Chloride 112 mmol/L (98-107); Glucose 140 mg/dL (74-99); Non-African American GFR(CKD) 87 (>60 ml/min/1.73 sqM); Potassium 4.1 mmol/L (3.5-5.1); Sodium 142 mmol/L (137-145)
[2021-06-26] MEDS: IPRATROPIUM-ALBUTEROL 3 ML NEB INHALATION SCH ×4 (09:04→20:57)
[2021-06-26 09:08] LABS: Appearance,Urine Clear (Clear); Bacteria,Urine Rare /hpf; Bilirubin,Urine Negative (Negative); Blood,Urine Trace (Negative); Color,Urine Yellow; Glucose,Urine (UA) Negative (Negative); Hyaline Casts,Urine 1 /lpf (0-2); Ketones,Urine 1+ (Negative); Leukocyte Esterase,Urine Negative (Negative); Mucus,Urine Moderate /hpf; Nitrite,Urine Negative (Negative); Protein,Urine 1+ (Negative); RBC,Urine 1 /hpf (0-5); Specific Gravity,Urine 1.027 (1.001-1.035); Urobilinogen,Urine <2.0 mg/dL (<2.0); WBC,Urine 3 /hpf (0-5)
[2021-06-26] MEDS: HEPARIN SODIUM,PORCINE/PF 5,000 UNIT/0.5 ML SYRINGE SQ SCH ×3 (09:10→22:45)
[2021-06-26] MEDS: AZITHROMYCIN 250 MG TAB PO SCH (09:11)
[2021-06-26 09:16] LABS: Amphetamine Screen,Urine Not Detected (NotDetected); Barbiturate Screen,Urine Not Detected (NotDetected); Benzodiazepines Screen,Urine Not Detected (NotDetected); Cocaine Screen,Urine Not Detected (NotDetected); Methadone Screen, Urine Not Detected (NotDetected); Opiate Screen,Urine Detected (NotDetected); Oxycodone Screen, Urine Not Detected (NotDetected); Phencyclidine Screen,Urine Not Detected (NotDetected); Tricyclic Antidepressant,Urine Not Detected (NotDetected); Urn Cannabinoid Scrn Not Detected (NotDetected)
[2021-06-26] MEDS ORDERED: LOPERAMIDE 2 MG CAP PO PRN (09:41)
--- NOTE | 2021-06-26 09:56 | XR ---
EXAMINATION TYPE: XR chest 2V DATE OF EXAM: 06/26/2021 COMPARISON: 06/24/2021 INDICATION: Pneumonia TECHNIQUE: Frontal and lateral views of the chest are obtained. FINDINGS: The heart size is normal. The pulmonary vasculature is upper limits of normal. Patchy bilateral lung infiltrates are present greater in the mid and lower lung trivedi. Findings are nonspecific. Correlate for pneumonia. Consider atypical pneumonia. IMPRESSION: 1. Bilateral lung infiltrates can be on the basis of worsening bilateral pneumonia.
--- NOTE | 2021-06-26 10:19 | CDI ---
Documentation Clarification Form Date: 06/26/2021 09:29:37 AM From: Meghan Chavez RN CCDS Admit Date: 06/24/2021 06:49:00 PM Patient Name: Dallas Quinonez Visit Number: [id number] Discharge Date: ATTENTION: The Clinical Documentation Specialists (CDI) and [facility] Coding Staff appreciate your assistance in clarifying documentation. Please respond to the clarification below the line at the bottom and electronically sign. The CDI & [facility] Coding staff will review the response and follow-up if needed. Please note: Queries are made part of the Legal Health Record. If you have any questions, please contact the author of this message via ITS. Dr. Erasmo Choe Your patient has the documented symptom of Confusion 06/24, H&P. Additional clarification regarding the etiology/cause of this symptom is requested. History/Risk Factors:66-year-old male presents to the ED via EMS for suspected opiate overdose. The patient takes morphine 60mg TID and was found to be pale and bradypneic by . The patient had pinpoint pupils, cyanotic and respiratory rate 2/3 breaths per minute per EMS. Medical History: Chronic back pain with prescription drug abuse. 06/24, H&P. Clinical Indicators: Labs: 06/24 Cr 1.62; 06/[address]: 06/[address] scan History obtained from the chart as the patient was confused at the time of interview. 06/24, H&P. Treatment: 06/24 to current 0.9NS 130cc/hr; 06/25 0.9NS 1L bolus x 1; Opiates restarted 06/25 Morphine 1mg IVP x 1; 06/26 Ms Contin 30mg PO Q8HR JETHRO. Please clarify the etiology of the symptom of Confusion: [x] Toxic Metabolic Encephalopathy due to opiate overdose in the setting of MARIALUISA in addition to likely other contributing factors, such as sepsis from community acquired pneumonia with acute hypoxemic respiratory failure [ ] Other condition (please specify) [ ] Unable to determine (Template Last Revised: April 2020) MTDD
--- NOTE | 2021-06-26 13:10 | P.PN ---
Subjective This is a pleasant 66-year-old male past medical history significant for osteoarthritis, status post prior spinal fusion, chronic neck and back pain, depression. No known history of cardiac disease. 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 We have been asked to see in consultation for elevated troponin. Patient presents emergency department with increased confusion. Patient unable to state why he is in the hospital. Currently does not have any complaints. Denies shortness of breath or chest pain. Patient was found by his looking pale and breathing slow. There is concern the patient has suspected opiate overdose. Patient also recently traveled to [place] last Thursday and developed gradual onset of fatigue, cough over the past 5 days. They returned back to [place] yesterday and upon returning home the patient's found the patient more lethargic and appeared cyanotic in the activated EMS. Upon arrival of EMS patient was noted to be cyanotic with pinpoint pupils and decreased respiratory rate. Narcan was given and patient had improvement in his symptoms. Patient is not fully back to baseline but improving. He denies any chest pain, palpitations, shortness of breath, lightheadedness or dizziness. He denies history of CAD, stroke, diabetes. He does currently smoke cigarettes daily. He states he takes morphine for his chronic neck pain. DIAGNOSTICS EKG reveals sinus tachycardia, heart rate 109, T wave inversion in lead aVL, no acute ST ST wave abnormalities suggest ischemia Telemetry tracings indicate sinus mechanism, heart rate 90s to 115 Most recent echocardiogram 2015 revealed an EF of 5560%, mild aortic valve sclerosis without stenosis, mild MR, mild TR Chest CT revealed no evidence of pulmonary embolism. Extensive bilateral lower lobe pneumonia. 4.4cm aneurysm of ascending aorta Brain CT with no acute intracranial abnormality Laboratory reviewed, troponin 0.07, 0.06, proBNP 525, sodium 143, potassium 5.3, BUN 23, serum creatinine 0.9, lactate 2.1, albumin 2.4 WBC 9.6, hemoglobin 12.9, platelets 214, Current home medications include morphine sulfate 60 mg 3 times a day, Claritin, vilazodone 06/26/2021 Patient seen and examined at bedside. No acute events. Does endorse some shortness of breath. Echo reveaked EF of 5055%, no significant wall motion abnormalities. Repeat chest x-ray revealed patchy bilateral lung infiltrates, Currently on azithromycin and Cefdinirm, IV steriods. PHYSICAL EXAMINATION Vitals reviewed CONSTITUTIONAL: No apparent distress. HEENT: Neck Supple. No JVD. No carotid bruit. CHEST EXAMINATION: Lungs are clear to auscultation. No chest wall tenderness is noted on palpation or with deep breathing. HEART EXAMINATION: Regular rate and rhythm. S1, S2 heard. No murmurs, gallops or rub. ABDOMEN: Soft, nontender. Positive bowel sounds. EXTREMITIES: 2+ peripheral pulses, no lower extremity edema and no calf tenderness. NEUROLOGIC EXAMINATION: Patient is awake, alert and oriented x3. ASSESSMENT Elevated troponin, likely type II mechanism due to hypoxia and supply and demand mismatch. Not indicative of acute coronary syndrome Suspected opiate toxicity Bilateral Pneumonia Acute kidney injury, improved with IV fluids PLAN Elevated troponin, not indicative of acute coronary syndrome, patient without chest pain, no evidence of acute ischemia on EKG, likely type II [place] due to hypoxia and demand ischemia. Echocardiogram revealed EF 50-55% Per Dr. Arreola, recommending consults to pulmonary and infectious disease. No further inpatient workup from a cardiology perspective for elevated troponin. Nurse practitioner note has been reviewed by physician. Signing provider agrees with the documented findings, assessment, and plan of care. Objective - Vital Signs Vital signs: Vital Signs Temp 97.8 F 06/26/21 11:46 Pulse 103 H 06/26/21 12:53 Resp 20 06/26/21 11:46 BP 113/66 06/26/21 11:46 Pulse Ox 96 06/26/21 11:46 Intake & Output 06/25/21 06/26/21 06/26/21 18:59 06:59 18:59 Intake Total 3990 520 Output Total 1000 2 200 Balance 2990 -2 320 Intake: IV 3130 Sodium Chloride 0.9% 1, 2080 000 ml @ 130 mls/hr IV . Q7H42M JETHRO Rx#:[id number] Sodium Chloride 0.9% 1, 1000 000 ml @ 999 mls/hr IV . Q1H1M ONE Rx#:[id number] cefTRIAXone 1 gm In 50 Sodium Chloride 0.9% 50 ml @ 100 mls/hr IVPB Q24HR JETHRO Rx#:[id number] Oral 860 520 Output: Gastric Drainage 0 Urine 1000 200 Urine/Stool Mix 2 Emesis 0 Oral Regurgitation 0 Other 0 Other: Voiding Method Urinal # Voids 1 # Bowel Movements 6 - Labs CBC & Chem 7: 06/26/21 08:20 06/26/21 08:20 Labs: Abnormal Lab Results - Last 24 Hours (Table) 06/25/21 06/25/21 06/26/21 Range/Units 15:18 18:57 08:20 WBC 14.7 H (3.8-10.6) k/uL Hgb 12.6 L (13.0-17.5) gm/dL MCHC 30.7 L (31.0-37.0) g/dL Neutrophils # 13.6 H (1.3-7.7) k/uL Lymphocytes # 0.5 L (1.0-4.8) k/uL Chloride (98-107) mmol/L BUN (9-20) mg/dL Glucose (74-99) mg/dL Plasma Lactic Acid Terrell 2.2 H* 2.1 H* (0.7-2.0) mmol/L Calcium (8.4-10.2) mg/dL Urine Protein (Negative) Urine Ketones (Negative) Urine Blood (Negative) Urine Bacteria (None) /hpf Urine Mucus (None) /hpf Urine Opiates Screen (NotDetected) 06/26/21 06/26/21 Range/Units 08:20 08:51 WBC (3.8-10.6) k/uL Hgb (13.0-17.5) gm/dL MCHC (31.0-37.0) g/dL Neutrophils # (1.3-7.7) k/uL Lymphocytes # (1.0-4.8) k/uL Chloride 112 H (98-107) mmol/L BUN 28 H (9-20) mg/dL Glucose 140 H (74-99) mg/dL Plasma Lactic Acid Terrell (0.7-2.0) mmol/L Calcium 7.7 L (8.4-10.2) mg/dL Urine Protein 1+ H (Negative) Urine Ketones 1+ H (Negative) Urine Blood Trace H (Negative) Urine Bacteria Rare H (None) /hpf Urine Mucus Moderate H (None) /hpf Urine Opiates Screen Detected H (NotDetected) Microbiology - Last 24 Hours (Table) 06/25/21 08:35 Blood Culture - Preliminary Blood No Growth after 24 hours 06/24/21 17:15 Blood Culture - Preliminary Blood No Growth after 24 hours 06/24/21 17:00 Blood Culture - Preliminary Blood No Growth after 24 hours
--- NOTE | 2021-06-26 13:34 | P.CNPUL ---
History of Present Illness Consult date: 06/26/21 Requesting physician: Erasmo Choe Reason for consult: dyspnea Chief complaint: Shortness of breath History of present illness: 66-year-old white male patient was admitted to the hospital on 06/24/2021 when he presented into the hospital complaining of shortness of breath, cyanosis, and mild confusion. He was brought in by EMS, he was suspected to have a opiate overdose, he was minimally responsive and had pinpoint pupils he was given Narcan with improvement in his respiratory status and resp breathing. Patient denied any fever or cough. His chest x-ray on admission showed genius opacity seen in the left lung base with a smaller one in the right lung base with suspicion for pneumonia. On admission lab evaluation showed white blood cell count is 12.6, hemoglobin was 15, d-dimer was 1.10, electrolytes were unremarkable, patient had evidence of acute kidney injury with BUN of 37 and creatinine is 1.62, mild troponin elevation of 0.071, 0.068, proBNP was 525, LFTs were unremarkable, lactic acid was 1.7. Venous blood gas on admission showed pH of 7.36, pCO2 of 41, and bicarbonate of 23. CT angiogram of the chest showed no evidence of pulmonary embolism, extensive bilateral lower lobe pneumonia, mild bilateral bronchial adenopathy, 4.4 cm aneurysm of the ascending aorta. Echocardiogram showed preserved LV function with EF of 50-55%, trace mitral, trace tricuspid regurg, no evidence of pulmonary hypertension with right ventricular systolic pressure less than 35 mmHg. Patient is currently on azithromycin and Omnicef, he is on IV Solu-Medrol 60 mg every 6 hours, he was fluid resuscitated with subsequent improvement in his renal function. Chest x- ray today on 06/26/2021 showing patchy bilateral lung infiltrates possible worsening bilateral pneumonia. She has been afebrile, he continues to require oxygen of 4 L his pulse ox of 96%. His blood cultures have been negative. His blood work shows white blood cell count 14.7, hemoglobin is 12.6, electrolytes and renal profile were relatively unremarkable. Of note his urine drug screen was positive for opiates, he was tested for COVID-19 per PCR test and was negative. Review of Systems All systems: negative Constitutional: Denies chills, Denies fever Eyes: denies blurred vision, denies pain Ears, nose, mouth and throat: Denies headache, Denies sore throat Cardiovascular: Denies chest pain, Denies shortness of breath Respiratory: Reports dyspnea, Denies cough Gastrointestinal: Denies abdominal pain, Denies diarrhea, Denies nausea, Denies vomiting Musculoskeletal: Denies myalgias Integumentary: Denies pruritus, Denies rash Neurological: Denies numbness, Denies weakness Psychiatric: Denies anxiety, Denies depression Endocrine: Denies fatigue, Denies weight change Past Medical History Past Medical History: Osteoarthritis (OA) 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 History of Any Multi-Drug Resistant Organisms: None Reported Additional Past Surgical History / Comment(s): spinal fusion Past Anesthesia/Blood Transfusion Reactions: No Reported Reaction Past Psychological History: No Psychological Hx Reported Smoking Status: Current every day smoker Past Alcohol Use History: None Reported Past Drug Use History: Prescription Drug Abuse - Past Family History Father Family Medical History: Myocardial Infarction ([place]) Mother Family Medical History: Congestive Heart Failure (CHF) Medications and Allergies Home Medications Medication Instructions Recorded Confirmed Type Ibuprofen [Motrin Ib] 400 mg PO Q8H PRN 06/24/21 06/24/21 History Loratadine [Claritin] 10 mg PO DAILY PRN 06/24/21 06/24/21 History Morphine Sulfate ER [Ms Contin] 60 mg PO TID 06/24/21 06/24/21 History Vilazodone HCl [Viibryd] 40 mg PO HS 06/24/21 06/24/21 History Allergies Allergy/AdvReac Type Severity Reaction Status Date / Time No Known Allergies Allergy Verified 06/24/21 16:32 Physical Exam Vitals: Vital Signs Temp Pulse Pulse Resp BP Pulse Ox 06/26/21 11:46 97.8 F 97 20 113/66 96 06/26/21 09:16 92 06/26/21 09:07 97 06/26/21 09:06 90 06/26/21 08:00 98 F 84 15 116/71 96 06/26/21 03:54 97.9 F 65 18 142/77 96 06/26/21 00:00 98.3 F 62 16 132/65 97 06/25/21 21:00 91 18 127/60 97 06/25/21 20:15 97.7 F 82 22 112/48 98 06/25/21 20:00 100 04/22 17:53 98.2 F 61 18 134/66 95 06/25/21 16:00 98.2 F 64 18 106/67 95 06/25/21 15:39 98 06/25/21 15:32 96 06/25/21 14:00 18 Intake and Output 06/25/21 06/26/21 06/26/21 22:59 06:59 14:59 Intake Total 1900 520 Output Total 400 2 200 Balance 1500 -2 320 Intake: IV 1040 Sodium Chloride 0.9% 1, 1040 000 ml @ 130 mls/hr IV . Q7H42M [facility] Rx#:[id number] Oral 860 520 Output: Urine 400 200 Urine/Stool Mix 2 Other: Voiding Method Urinal # Voids 1 # Bowel Movements 6 GENERAL EXAM: Alert, pleasant, 66-year-old white male, on 4 L of oxygen pulse ox of 96% comfortable in no apparent distress. HEAD: Normocephalic/atraumatic. EYES: Normal reaction of pupils, equal size. Conjunctiva pink, sclera white. NOSE: Clear with pink turbinates. THROAT: No erythema or exudates. NECK: No masses, no JVD, no thyroid enlargement, no adenopathy. CHEST: No chest wall deformity. Symmetrical expansion. LUNGS: Equal air entry with no crackles, wheeze, rhonchi or dullness. CVS: Regular rate and rhythm, normal S1 and S2, no gallops, no murmurs, no rubs ABDOMEN: Soft, nontender. No hepatosplenomegaly, normal bowel sounds, no guarding or rigidity. EXTREMITIES: No clubbing, no edema, no cyanosis, 2+ pulses and upper and lower extremities. MUSCULOSKELETAL: Muscle strength and tone normal. SPINE: No scoliosis or deformity SKIN: No rashes CENTRAL NERVOUS SYSTEM: Alert and oriented -3. No focal deficits, tone is normal in all 4 extremities. PSYCHIATRIC: Alert and oriented -3. Appropriate affect. Intact judgment and insight. Results - Laboratory Findings CBC and BMP: 06/26/21 08:20 06/26/21 08:20 PT/INR, D-dimer PT 9.9 sec (9.0-12.0) 06/24/21 15:49 INR 0.9 (<1.2) 06/24/21 15:49 D-Dimer 1.10 mg/L FEU (<0.60) H 06/24/21 15:49 Abnormal lab findings: Abnormal Labs 06/24/21 06/24/21 06/24/21 15:49 15:49 15:50 WBC 12.6 H Hgb MCHC Neutrophils # 11.4 H Neutrophils # (Manual) Lymphocytes # 0.3 L Lymphocytes # (Manual) APTT 19.6 L D-Dimer 1.10 H VBG HCO3 Potassium Chloride BUN Creatinine Glucose Plasma Lactic Acid Terrell Calcium Troponin I 0.071 H* Total Protein Albumin Urine Protein Urine Ketones Urine Blood Urine Bacteria Urine Mucus Urine Opiates Screen 06/24/21 06/24/21 06/24/21 15:50 16:04 21:50 WBC Hgb MCHC Neutrophils # Neutrophils # (Manual) Lymphocytes # Lymphocytes # (Manual) APTT D-Dimer VBG HCO3 23 L Potassium Chloride BUN 37 H Creatinine 1.62 H Glucose 112 H Plasma Lactic Acid Terrell Calcium Troponin I 0.068 H* Total Protein 6.1 L Albumin 3.2 L Urine Protein Urine Ketones Urine Blood Urine Bacteria Urine Mucus Urine Opiates Screen 06/25/21 06/25/21 06/25/21 08:35 08:35 08:35 WBC Hgb 12.9 L MCHC Neutrophils # Neutrophils # (Manual) 8.70 H Lymphocytes # Lymphocytes # (Manual) 0.19 L APTT D-Dimer VBG HCO3 Potassium 5.3 H Chloride 112 H BUN 23 H Creatinine Glucose 166 H Plasma Lactic Acid Terrell 2.1 H* Calcium 7.6 L Troponin I Total Protein 4.9 L Albumin 2.4 L Urine Protein Urine Ketones Urine Blood Urine Bacteria Urine Mucus Urine Opiates Screen 06/25/21 06/25/21 06/25/21 11:50 15:18 18:57 WBC Hgb MCHC Neutrophils # Neutrophils # (Manual) Lymphocytes # Lymphocytes # (Manual) APTT D-Dimer VBG HCO3 Potassium Chloride BUN Creatinine Glucose Plasma Lactic Acid Terrell 2.9 H* 2.2 H* 2.1 H* Calcium Troponin I Total Protein Albumin Urine Protein Urine Ketones Urine Blood Urine Bacteria Urine Mucus Urine Opiates Screen 06/26/21 06/26/21 06/26/21 08:20 08:20 08:51 WBC 14.7 H Hgb 12.6 L MCHC 30.7 L Neutrophils # 13.6 H Neutrophils # (Manual) Lymphocytes # 0.5 L Lymphocytes # (Manual) APTT D-Dimer VBG HCO3 Potassium Chloride 112 H BUN 28 H Creatinine Glucose 140 H Plasma Lactic Acid Terrell Calcium 7.7 L Troponin I Total Protein Albumin Urine Protein 1+ H Urine Ketones 1+ H Urine Blood Trace H Urine Bacteria Rare H Urine Mucus Moderate H Urine Opiates Screen Detected H - Diagnostic Findings Chest x-ray: report reviewed, image reviewed CT scan - chest: report reviewed, image reviewed Additional studies: CT of the brain, EKG, echocardiogram reviewed Assessment and Plan Plan: Assessment: #1. Acute hypoxic respiratory failure secondary to suspected aspiration pneumonia #2. Altered mental status, decreased responsiveness, suspected opiate overdose, with response to Narcan out in the field during initial presentation #3. History of chronic neck and back pain #4. Status post prior spinal fusion #5. Depression #6. Osteoarthritis #7. Acute kidney injury improved with IV hydration Plan: We'll send a procalcitonin level Continue IV steroids, Switch ABT to Zosyn His chest x-ray has been reviewed still showing bilateral lung infiltrates Suspect aspiration pneumonia related to opiate overdose May consider bronch with BAL if no improvement on CXR or clinically Blood and sputum cultures GI DVT prophylaxis Continue to follow I have personally seen and examined the patient, performed the documentation and the assessment and plan as written. Number of minutes spent on the visit: [15] Time with Patient: Greater than 30
--- NOTE | 2021-06-26 13:35 | P.PN ---
Subjective Progress Note Date: 06/26/21 Principal diagnosis: Pneumonia with altered mental status 66-year-old male with history of chronic pain and osteoarthritis, depression who was admitted for suspected opiate overdose, found to have bilateral pneumonia. CTA chest negative for PE but demonstrated extensive bilateral lower lobe pneumonia. Echocardiogram shows preserved ejection fraction. Patient seen and examined at bedside. Overnight course discussed with RN. Patient reports that his breathing has not improved and he is still short of breath. He denies chest pain or palpitations. He also denies nausea, vomiting or abdominal pain. Labs and medication list reviewed. His MARIALUISA has resolved. Per nursing staff, patient had multiple episodes of loose stool. C. diff was negative. COVID was negative. Objective - Vital Signs Vital signs: Vital Signs Temp 97.8 F 06/26/21 11:46 Pulse 103 H 06/26/21 12:53 Resp 20 06/26/21 11:46 BP 113/66 06/26/21 11:46 Pulse Ox 96 06/26/21 11:46 Intake & Output 06/25/21 06/26/21 06/26/21 18:59 06:59 18:59 Intake Total 3990 520 Output Total 1000 2 200 Balance 2990 -2 320 Intake: IV 3130 Sodium Chloride 0.9% 1, 2080 000 ml @ 130 mls/hr IV . Q7H42M [facility] Rx#:[id number] Sodium Chloride 0.9% 1, 1000 000 ml @ 999 mls/hr IV . Q1H1M [facility] Rx#:[id number] cefTRIAXone 1 gm In 50 Sodium Chloride 0.9% 50 ml @ 100 mls/hr IVPB Q24HR [facility] Rx#:[id number] Oral 860 520 Output: Gastric Drainage 0 Urine 1000 200 Urine/Stool Mix 2 Emesis 0 Oral Regurgitation 0 Other 0 Other: Voiding Method Urinal # Voids 1 # Bowel Movements 6 - Exam Constitutional: Awake, alert HEENT: Pupils equally reactive to light, atraumatic, normocephalic. Lungs: Bilaterally diminished, on 4 L supplemental oxygen by nasal cannula, no use of accessory muscles Cardiovascular: Sinus tachycardia, S1-S2 normal, no murmur, no peripheral edema Abdominal: Soft, nontender, no guarding, rebound or rigidity Extremities: No cyanosis or clubbing Neuro: No focal neurological signs alert - Labs CBC & Chem 7: 06/26/21 08:20 06/26/21 08:20 Labs: Abnormal Lab Results - Last 24 Hours (Table) 06/25/21 06/25/21 06/26/21 Range/Units 15:18 18:57 08:20 WBC 14.7 H (3.8-10.6) k/uL Hgb 12.6 L (13.0-17.5) gm/dL MCHC 30.7 L (31.0-37.0) g/dL Neutrophils # 13.6 H (1.3-7.7) k/uL Lymphocytes # 0.5 L (1.0-4.8) k/uL Chloride (98-107) mmol/L BUN (9-20) mg/dL Glucose (74-99) mg/dL Plasma Lactic Acid Terrell 2.2 H* 2.1 H* (0.7-2.0) mmol/L Calcium (8.4-10.2) mg/dL Urine Protein (Negative) Urine Ketones (Negative) Urine Blood (Negative) Urine Bacteria (None) /hpf Urine Mucus (None) /hpf Urine Opiates Screen (NotDetected) 06/26/21 06/26/21 Range/Units 08:20 08:51 WBC (3.8-10.6) k/uL Hgb (13.0-17.5) gm/dL MCHC (31.0-37.0) g/dL Neutrophils # (1.3-7.7) k/uL Lymphocytes # (1.0-4.8) k/uL Chloride 112 H (98-107) mmol/L BUN 28 H (9-20) mg/dL Glucose 140 H (74-99) mg/dL Plasma Lactic Acid Terrell (0.7-2.0) mmol/L Calcium 7.7 L (8.4-10.2) mg/dL Urine Protein 1+ H (Negative) Urine Ketones 1+ H (Negative) Urine Blood Trace H (Negative) Urine Bacteria Rare H (None) /hpf Urine Mucus Moderate H (None) /hpf Urine Opiates Screen Detected H (NotDetected) Microbiology - Last 24 Hours (Table) 06/25/21 08:35 Blood Culture - Preliminary Blood No Growth after 24 hours 06/24/21 17:15 Blood Culture - Preliminary Blood No Growth after 24 hours 06/24/21 17:00 Blood Culture - Preliminary Blood No Growth after 24 hours Assessment and Plan Assessment: 1. Acute hypoxic respiratory failure - On supplemental oxygen - Secondary to community-acquired pneumonia - Continue azithromycin and ceftriaxone - Check sputum culture and urine Legionella. Check mycoplasma IgG/IgM - I'm also suspecting Legionella infection due to diarrhea in the setting of bilateral pneumonia or atypical pneumonia. Switch azithromycin to full dose. - Pulmonology consultation requested, pending completion. 2. Opioid toxicity - Patient takes morphine at home - His encephalopathy improved with Narcan - Narcan as necessary - Continue supportive care and IV fluids at this time 3. COPD exacerbation - Patient has history of smoking since age 18. 3. MARIALUISA, resolved with IV fluids, likely prerenal 4. Toxic metabolic encephalopathy - Improved - Multifactorial: Pneumonia, hypoxia, opiate overdose 5. Elevated troponin, likely type II OH due to hypoxia/demand ischemia -Cardiology consult taken, no further cardiac workup recommended. Appreciate input DVT prophylaxis with subcutaneous heparin
[2021-06-26] MEDS: PIPERACILLIN-TAZOBACTAM 3.375 GM in SODIUM CHLORIDE 0.9% 100 ML IVPB SCH ×2 (15:22→22:43)
[2021-06-26 19:37] LABS: Glucose,Whole Blood 174 mg/dL (75-99)
[2021-06-26] MEDS: INSULIN ASPART (NovoLOG) 100 UNIT/ML VIAL SQ SCH (20:31)
[2021-06-26] MEDS ORDERED: ALPRAZolam 1 MG TAB PO STA (22:34)
--- NOTE | 2021-06-26 23:16 | P.CONS ---
History of Present Illness - Reason for Consult Consult date: 06/26/21 Pneumonia Requesting physician: Rigoberto Arreola - Chief Complaint Shortness of breath x few days - History of Present Illness Patient is a 66-year male with a past medical history sniffing for osteoarthritis and a recent trip to [place] patient mention he started having a cough and not feeling that great on the last day or 2 when he was in [place] patient subsequently come back to [place] on Thursday and has not been feeling well has been complaining of feeling weak and tired no energy also complaining of shortness of breath on minimal exertion patient did have a cough which is mild in intensity at the patient is not bringing up any sputum patient denies having any nausea vomiting no abdominal pain however did have some diarrhea with the symptoms the patient presented to hospital 2 days ago on 06/24/2021 on arrival to the ER patient did have low-grade fever of 99.2 F patient was hypoxic with O2 sats of 88% is currently 94% on 4 L nasal cannula p atient did have a white count of 12.6 which is up to 14.7 today with a left shift BUN was elevated, creatinine was normal he did have elevated lactic acid level exams are normal urine was negative urine drug screen positive for opiates Covid testing was negative blood culture has been obtained which are so far negative patient did have a chest x-ray suspected pneumonia in the left midlung zone patient did have a slight angiogram of the chest that was negative for PE however did shows extensive bilateral lower lobe pneumonia patient was treated with Rocephin and Zithromax antibiotic subsequently discharged to [facility] infectious disease was consulted for further management of antibiotic therapy Review of Systems Positive point has been mentioned in the HPI rest of the systems are negative Past Medical History Past Medical History: Osteoarthritis (OA) 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 History of Any Multi-Drug Resistant Organisms: None Reported Additional Past Surgical History / Comment(s): spinal fusion Past Anesthesia/Blood Transfusion Reactions: No Reported Reaction Past Psychological History: No Psychological Hx Reported Smoking Status: Current every day smoker Past Alcohol Use History: None Reported Past Drug Use History: Prescription Drug Abuse - Past Family History Father Family Medical History: Myocardial Infarction ([place]) Mother Family Medical History: Congestive Heart Failure (CHF) Medications and Allergies Home Medications Medication Instructions Recorded Confirmed Type Ibuprofen [Motrin Ib] 400 mg PO Q8H PRN 04/11/22 04/11/22 History Loratadine [Claritin] 10 mg PO DAILY PRN 06/24/21 06/24/21 History Morphine Sulfate ER [Ms Contin] 60 mg PO TID 06/24/21 06/24/21 History Vilazodone HCl [Viibryd] 40 mg PO HS 06/24/21 06/24/21 History Allergies Allergy/AdvReac Type Severity Reaction Status Date / Time No Known Allergies Allergy Verified 06/24/21 16:32 Physical Exam Vitals: Vital Signs Temp Pulse Pulse Resp BP Pulse Ox 06/26/21 09:16 92 06/26/21 09:07 97 06/26/21 09:06 90 06/26/21 08:00 98 F 84 15 116/71 96 06/26/21 03:54 97.9 F 65 18 142/77 96 06/26/21 00:00 98.3 F 62 16 132/65 97 06/25/21 21:00 91 18 127/60 97 06/25/21 20:15 97.7 F 82 22 112/48 98 06/25/21 20:00 100 06/25/21 17:53 98.2 F 61 18 134/66 95 06/25/21 16:00 98.2 F 64 18 106/67 95 06/25/21 15:39 98 06/25/21 15:32 96 06/25/21 14:00 18 06/25/21 12:12 98 06/25/21 12:01 100 06/25/21 11:53 98.0 F 81 18 111/64 97 Intake and Output 06/25/21 06/26/21 06/26/21 22:59 06:59 14:59 Intake Total 1900 260 Output Total 400 2 200 Balance 1500 -2 60 Intake: IV 1040 Sodium Chloride 0.9% 1, 1040 000 ml @ 130 mls/hr IV . Q7H42M [facility] Rx#:[id number] Oral 860 260 Output: Urine 400 200 Urine/Stool Mix 2 Other: Voiding Method Urinal # Voids 1 # Bowel Movements 6 GENERAL DESCRIPTION: Middle-aged male lying in bed, no distress. No tachypnea or accessory muscle of respiration use. HEENT: Shows Pallor , no scleral icterus. Oral mucous membrane is dry. No pharyngeal erythema or thrush NECK: Trachea central, no thyromegaly. LUNGS: Unlabored breathing. Decreased breath sound at the base. No wheeze or crackle. HEART: S1, S2, regular rate and rhythm. No loud murmur ABDOMEN: Soft, no tenderness , guarding or rigidity, no organomegaly EXTREMITIES: No edema of feet. SKIN: No rash, no masses palpable. NEUROLOGICAL: The patient is awake, alert, oriented x3, mood and affect normal. Results CBC & Chem 7: 06/26/21 08:20 06/26/21 08:20 Labs: Abnormal Lab Results - Last 24 Hours (Table) 06/25/21 06/25/21 06/25/21 Range/Units 11:50 15:18 18:57 WBC (3.8-10.6) k/uL Hgb (13.0-17.5) gm/dL MCHC (31.0-37.0) g/dL Neutrophils # (1.3-7.7) k/uL Lymphocytes # (1.0-4.8) k/uL Chloride (98-107) mmol/L BUN (9-20) mg/dL Glucose (74-99) mg/dL Plasma Lactic Acid Terrell 2.9 H* 2.2 H* 2.1 H* (0.7-2.0) mmol/L Calcium (8.4-10.2) mg/dL Urine Protein (Negative) Urine Ketones (Negative) Urine Blood (Negative) Urine Bacteria (None) /hpf Urine Mucus (None) /hpf Urine Opiates Screen (NotDetected) 06/26/21 06/26/21 06/26/21 Range/Units 08:20 08:20 08:51 WBC 14.7 H (3.8-10.6) k/uL Hgb 12.6 L (13.0-17.5) gm/dL MCHC 30.7 L (31.0-37.0) g/dL Neutrophils # 13.6 H (1.3-7.7) k/uL Lymphocytes # 0.5 L (1.0-4.8) k/uL Chloride 112 H (98-107) mmol/L BUN 28 H (9-20) mg/dL Glucose 140 H (74-99) mg/dL Plasma Lactic Acid Terrell (0.7-2.0) mmol/L Calcium 7.7 L (8.4-10.2) mg/dL Urine Protein 1+ H (Negative) Urine Ketones 1+ H (Negative) Urine Blood Trace H (Negative) Urine Bacteria Rare H (None) /hpf Urine Mucus Moderate H (None) /hpf Urine Opiates Screen Detected H (NotDetected) Microbiology - Last 24 Hours (Table) 06/25/21 08:35 Blood Culture - Preliminary Blood No Growth after 24 hours 06/24/21 17:15 Blood Culture - Preliminary Blood No Growth after 24 hours 06/24/21 17:00 Blood Culture - Preliminary Blood No Growth after 24 hours Assessment and Plan (1) Bilateral pneumonia Current Visit: Yes Status: Acute Code(s): J18.9 - PNEUMONIA, UNSPECIFIED ORGANISM SNOMED Code(s): 556966010 Plan: 1patient presented hospital with increasing shortness of breath weakness did have a cough in this patient did have elevated white count or low-grade fever and evidence of bilateral lower lobe extensive pneumonia possible community- acquired versus aspiration/gram-negative. 2we will obtain CRP procalcitonin sputum for Gram stain culture and urine for urine antigen. 3continue with the Zosyn 3.375 g every 8 hours. We will follow on clinical condition and cultures to further adjust medication if needed Thank you for this consultation will follow this patient along with you
[2021-06-27] MEDS: MORPHINE SULFATE ER 30 MG TABLET PO SCH ×3 (00:37→16:01)
[2021-06-27] MEDS ORDERED: FUROSEMIDE 10 MG/ML 10 ML VIAL IV STA (03:14)
[2021-06-27 03:43] LABS: Glucose,Whole Blood 145 mg/dL (75-99)
--- NOTE | 2021-06-27 03:48 | XR ---
EXAMINATION TYPE: XR chest 1V portable DATE OF EXAM: 06/27/2021 COMPARISON: Yesterday HISTORY: Hypoxemia TECHNIQUE: 2 views FINDINGS: There is extensive coarse interstitial infiltrate throughout the lungs. Heart is borderline enlarged. There are chest leads. Costophrenic angles show no pleural fluid. IMPRESSION: There is significant increasing pulmonary edema compared to previous exams and could be d eveloping RDS. No significant pleural fluid seen to suggest heart failure.
[2021-06-27] MEDS ORDERED: VANCOMYCIN IV PER PHARMACY 1 EACH MISC MISCELLANE PRN (04:09)
[2021-06-27 04:23] LABS: ABG Base Excess -4.3 mmol/L; ABG HCO3 20 mmol/L (21-25); ABG Oxygen Saturation 92.2 % (94-97); ABG PCO2 29 mmHg (35-45); ABG PH 7.44 (7.35-7.45); ABG PO2 60 mmHg (83-108); ABG TCO2 21 mmol/L (19-24); Allen Test Performed? Yes
[2021-06-27] MEDS: VANCOMYCIN 1,500 MG in SODIUM CHLORIDE 0.9% 250 ML IVPB SCH ×2 (04:23→18:36)
--- NOTE | 2021-06-27 04:23 | P.PN ---
Progress Note - Text Progress Note Date: 06/27/21 Notified by the RN that the patient's SpO2 decreased to 80% while on 5 L nasal cannula oxygen. He also had appeared to be in worsening respiratory distress. The patient was seen and examined at the bedside. He reported feeling short of breath. Denied experiencing chest discomfort. General: Somewhat ill-appearing, in moderate respiratory distress, appears stated age, normal weight HEENT: NC/AT, anicteric sclerae, moist conjunctiva, no lid-lag, PERRLA Cardiovascular: S1/S2 wnl, no murmurs, rubs, or gallops Lungs: Coarse breath sounds throughout with scattered rales, increased respir atory effort noted, some accessory muscle use Abdominal: Soft, non-tender, non-distended, no guarding, rebound, or rigidity Skin: Warm, dry Extremities: No edema or contractures Psychiatric: Sleepy, awakens easily and oriented to person, place, and time Assessment/plan Worsening hypoxic respiratory failure -Chart reviewed with pulmonary and infectious disease recommendations appreciated -Patient had been on normal saline 130 mL/h -Chest x-ray ordered and reviewed showing increasing edema and possibly developing RDS -Lasix 80 mg IV push ordered and IV fluids discontinued -ABG ordered -BiPAP ordered -Continue with broad-spectrum antibiotics Zosyn with vancomycin added -Pulmonary long chain beamer paged by RN. Awaiting response -CTA on admission negative for PE
[2021-06-27 05:22] LABS: Glucose,Whole Blood 131 mg/dL (75-99)
[2021-06-27] MEDS: methylPREDNISolone SOD SUCCI 125 MG/2 ML VIAL IV SCH ×3 (05:59→18:31)
[2021-06-27 06:58] LABS: Glucose,Whole Blood 117 mg/dL (75-99)
[2021-06-27] MEDS: INSULIN ASPART (NovoLOG) 100 UNIT/ML VIAL SQ SCH ×4 (07:07→20:26)
[2021-06-27 07:41] LABS: Basophils # (A) 0.1 k/uL (0-0.2); Basophils % (A) 0 %; Eosinophils % (A) 0 %; HCT 44.8 % (39.0-53.0); HGB 14.2 gm/dL (13.0-17.5); Lymphocytes # (A) 0.5 k/uL (1.0-4.8); Lymphocytes % (A) 3 %; MCH 28.9 pg (25.0-35.0); MCHC 31.7 g/dL (31.0-37.0); MCV 91.3 fL (80.0-100.0); Mean Platelet Volume 7.7; Monocytes # (A) 0.6 k/uL (0-1.0); Monocytes % (A) 3 %; Neutrophils # (A) 17.7 k/uL (1.3-7.7); Neutrophils % (A) 93 %; Platelet Count 281 k/uL (150-450); RBC 4.91 m/uL (4.30-5.90); WBC 19.1 k/uL (3.8-10.6)
[2021-06-27 07:56] LABS: African American GFR (CKD) >90 (>60 ml/min/1.73 sqM); Anion Gap 6 mmol/L; Blood Urea Nitrogen 24 mg/dL (9-20); C Reactive Protein 5.6 mg/dL (<1.0); Calcium 7.4 mg/dL (8.4-10.2); Carbon Dioxide 25 mmol/L (22-30); Chloride 108 mmol/L (98-107); Glucose 147 mg/dL (74-99); Non-African American GFR(CKD) 83 (>60 ml/min/1.73 sqM); Potassium 3.5 mmol/L (3.5-5.1); Sodium 139 mmol/L (137-145)
--- NOTE | 2021-06-27 08:30 | XR ---
EXAMINATION TYPE: XR chest 1V portable DATE OF EXAM: 06/27/2021 Comparison: 06/27/2021 Clinical History: 66-year-old male hypoxia Findings: Hyperinflation. Heart upper limits of normal in size. Confluent groundglass opacity throughout the virgen ngs sparing apices and more confluence opacity right upper lobe and periphery of the left lung. [place] to slightly worsening. ACDF hardware. Posterior cervical fusion hardware. Impression: COPD with superimposed bilateral groundglass and airspace disease similar to slightly worsened from shwetha guillory today. Consider possibilities such as aspiration, multifocal pneumonia, atypical/COVID pneumon ia, hypersensitivity pneumonitis, interstitial pneumonitis, DAH, etc.
[2021-06-27] MEDS: HEPARIN SODIUM,PORCINE/PF 5,000 UNIT/0.5 ML SYRINGE SQ SCH ×2 (08:31→16:01)
[2021-06-27] MEDS: PIPERACILLIN-TAZOBACTAM 3.375 GM in SODIUM CHLORIDE 0.9% 100 ML IVPB SCH ×2 (08:32→16:02)
[2021-06-27] MEDS: NICOTINE 21MG/24HR PATCH TRANSDERM SCH (08:33)
[2021-06-27] MEDS: IPRATROPIUM-ALBUTEROL 3 ML NEB INHALATION SCH ×4 (08:54→19:53)
[2021-06-27] MEDS ORDERED: AZITHROMYCIN 500 MG in SODIUM CHLORIDE 0.9% 250 ML IVPB SCH (09:00)
[2021-06-27] MEDS ORDERED: CEFDINIR 300 MG CAP PO SCH (09:00)
[2021-06-27] MEDS ORDERED: FUROSEMIDE 10 MG/ML 4 ML VIAL IV STA (09:26)
--- NOTE | 2021-06-27 10:42 | P.PN ---
Subjective Progress Note Date: 06/27/21 Principal diagnosis: Pneumonia 66-year-old white male patient was admitted to the hospital on 06/24/2021 when he presented into the hospital complaining of shortness of breath, cyanosis, and mild confusion. He was brought in by EMS, he was suspected to have a opiate overdose, he was minimally responsive and had pinpoint pupils he was given Narcan with improvement in his respiratory status and resp breathing. Patient denied any fever or cough. His chest x-ray on admission showed genius opacity seen in the left lung base with a smaller one in the right lung base with darien picion for pneumonia. On admission lab evaluation showed white blood cell count is 12.6, hemoglobin was 15, d-dimer was 1.10, electrolytes were unremarkable, patient had evidence of acute kidney injury with BUN of 37 and creatinine is 1.62, mild troponin elevation of 0.071, 0.068, proBNP was 525, LFTs were unremarkable, lactic acid was 1.7. Venous blood gas on admission showed pH of 7.36, pCO2 of 41, and bicarbonate of 23. CT angiogram of the chest showed no evidence of pulmonary embolism, extensive bilateral lower lobe pneumonia, mild bilateral bronchial adenopathy, 4.4 cm aneurysm of the ascending aorta. Echocardiogram showed preserved LV function with EF of 50-55%, trace mitral, trace tricuspid regurg, no evidence of pulmonary hypertension with right ventricular systolic pressure less than 35 mmHg. Patient is currently on azithromycin and Omnicef, he is on IV Solu-Medrol 60 mg every 6 hours, he was fluid resuscitated with subsequent improvement in his renal function. Chest x-r ay today on 06/26/2021 showing patchy bilateral lung infiltrates possible worsening bilateral pneumonia. She has been afebrile, he continues to require oxygen of 4 L his pulse ox of 96%. His blood cultures have been negative. His blood work shows white blood cell count 14.7, hemoglobin is 12.6, electrolytes and renal profile were relatively unremarkable. Of note his urine drug screen was positive for opiates, he was tested for COVID-19 per PCR test and was negative. The patient is seen today 06/27/2021 in follow-up in the intensive care unit. He was transferred here due to progressive worsening shortness of breath. He is currently on BiPAP 02/18 and down to 60% FiO2 to maintain O2 saturations in the 90s. Arterial blood gases earlier this morning on 100% FiO2 revealed a pO2 of 60, pCO2 29 and a pH of 7.44. Chest x-ray reveals evidence of COPD with superimposed bilateral groundglass and airspace disease slightly worsened from previous. Within the differential includes aspiration, multifocal pneumonia, atypical pneumonia, hypersensitivity pneumonitis, interstitial pneumonitis. Sp utum culture is pending. He also received Lasix and had 750 mls of urine output. blood cultures pending. White count 19.1. Hemoglobin 14.2. Platelets 281. Sodium 139. Potassium 3.5. Bicarb 25. BUN 24. Creatinine 0.97. Pro- calcitonin 3.12. He's been initiated on vancomycin and Zosyn. He is on bronchodilators, IV Solu-Medrol. NicoDerm patch in place. Objective - Vital Signs Vital signs: Vital Signs Temp 99.0 F 06/27/21 08:00 Pulse 90 06/27/21 10:00 Resp 38 H 06/27/21 10:00 BP 130/85 06/27/21 10:00 Pulse Ox 93 L 06/27/21 09:30 Intake & Output 06/26/21 06/27/21 06/27/21 18:59 06:59 18:59 Intake Total 2240 1400 150 Output Total 200 2200 750 Balance 2040 -800 -600 Intake: IV 1720 1140 150 Invasive Line 2 10 Piperacillin-Tazobactam 3 100 100 100 .375 gm In Sodium Chloride 0.9% 100 ml @ 25 mls/hr IVPB Q8HR [facility] Rx# :[id number] Sodium Chloride 0.9% 1, 1560 1040 50 000 ml @ 130 mls/hr IV . Q7H42M [facility] Rx#:[id number] cefTRIAXone 1 gm In 50 Sodium Chloride 0.9% 50 ml @ 100 mls/hr IVPB Q24HR [facility] Rx#:[id number] Oral 520 260 Output: Urine 200 2200 750 Other: Voiding Method Urinal Urinal Urinal # Voids 1 2 - Exam GENERAL EXAM: Alert, pleasant 66-year-old male patient, on BiPAP 12/6 and 60% FiO2, fairly comfortable in no apparent distress. HEAD: Normocephalic. EYES: Normal reaction of pupils, equal size. NOSE: Clear with pink turbinates. THROAT: No erythema or exudates. NECK: No masses, no JVD. CHEST: No chest wall deformity. LUNGS: Equal air entry with bilateral scattered rhonchi. CVS: S1 and S2 normal with no audible murmur, regular rhythm. ABDOMEN: No hepatosplenomegaly, normal bowel sounds, no guarding or rigidity. SPINE: No scoliosis or deformity SKIN: No rashes CENTRAL NERVOUS SYSTEM: No focal deficits, tone is normal in all 4 extremities. EXTREMITIES: There is no peripheral edema. No clubbing, no cyanosis. Peripheral pulses are intact. - Labs CBC & Chem 7: 06/27/21 07:24 06/27/21 07:24 Labs: Abnormal Lab Results - Last 24 Hours (Table) 06/26/21 06/26/21 06/27/21 Range/Units 08:20 19:35 03:32 WBC (3.8-10.6) k/uL Neutrophils # (1.3-7.7) k/uL Lymphocytes # (1.0-4.8) k/uL ABG pCO2 (35-45) mmHg ABG pO2 (83-108) mmHg ABG HCO3 (21-25) mmol/L ABG O2 Saturation (94-97) % Chloride (98-107) mmol/L BUN (9-20) mg/dL Glucose (74-99) mg/dL POC Glucose (mg/dL) 174 H 145 H (75-99) mg/dL Calcium (8.4-10.2) mg/dL C-Reactive Protein (<1.0) mg/dL Procalcitonin 3.12 H (0.02-0.09) ng/mL 06/27/21 06/27/21 06/27/21 Range/Units 04:21 05:19 06:57 WBC (3.8-10.6) k/uL Neutrophils # (1.3-7.7) k/uL Lymphocytes # (1.0-4.8) k/uL ABG pCO2 29 L (35-45) mmHg ABG pO2 60 L (83-108) mmHg ABG HCO3 20 L (21-25) mmol/L ABG O2 Saturation 92.2 L (94-97) % Chloride (98-107) mmol/L BUN (9-20) mg/dL Glucose (74-99) mg/dL POC Glucose (mg/dL) 131 H 117 H (75-99) mg/dL Calcium (8.4-10.2) mg/dL C-Reactive Protein (<1.0) mg/dL Procalcitonin (0.02-0.09) ng/mL 06/27/21 06/27/21 Range/Units 07:24 07:24 WBC 19.1 H (3.8-10.6) k/uL Neutrophils # 17.7 H (1.3-7.7) k/uL Lymphocytes # 0.5 L (1.0-4.8) k/uL ABG pCO2 (35-45) mmHg ABG pO2 (83-108) mmHg ABG HCO3 (21-25) mmol/L ABG O2 Saturation (94-97) % Chloride 108 H (98-107) mmol/L BUN 24 H (9-20) mg/dL Glucose 147 H (74-99) mg/dL POC Glucose (mg/dL) (75-99) mg/dL Calcium 7.4 L (8.4-10.2) mg/dL C-Reactive Protein 5.6 H (<1.0) mg/dL Procalcitonin (0.02-0.09) ng/mL Microbiology - Last 24 Hours (Table) 06/26/21 15:27 Gram Stain - Preliminary Sputum Sputum Culture - Preliminary 06/24/21 17:15 Blood Culture - Preliminary Blood No Growth after 48 hours 06/24/21 17:00 Blood Culture - Preliminary Blood No Growth after 48 hours 06/25/21 08:35 Blood Culture - Preliminary Blood No Growth after 24 hours Assessment and Plan Assessment: 1 Acute hypoxic respiratory failure secondary to suspected aspiration pneumonia. Currently on BiPAP 02/18 and 60% FiO2. Initiated on vancomycin and Zosyn. 2 Altered mental status, decreased responsiveness, suspected opiate overdose, with response to Narcan out in the field during initial presentation 3 History of chronic neck and back pain 4 Status post prior spinal fusion 5 Depression 6 Osteoarthritis 7 Acute kidney injury improved with IV hydration 8 Chronic tobacco dependence 9 History of prescription drug abuse Plan: The patient was seen and evaluated Chest x-ray and labs reviewed Continue vancomycin and Zosyn Sputum culture pending Titrate the FiO2 as tolerated Add Perforomist and Pulmicort inhalations Continue DuoNeb inhalations and IV solu Medrol Educated regarding the importance of complete smoking cessation NicoDerm patch in place We will continue to follow and make further recommendations based on his clinical status I have personally seen and examined the patient, performed the documentation and the assessment and plan as written. Number of minutes spent on the visit: 10.
[2021-06-27] MEDS ORDERED: Potassium Replacement Protocol 1 EACH MISC MISCELLANE PRN (11:14)
[2021-06-27 11:24] LABS: Glucose,Whole Blood 146 mg/dL (75-99)
--- NOTE | 2021-06-27 12:31 | P.PN ---
Subjective 66-year-old male with history of chronic pain and osteoarthritis, depression who was admitted for suspected opiate overdose, found to have bilateral pneumonia. CTA chest negative for PE but demonstrated extensive bilateral lower lobe pneumonia. Echocardiogram shows preserved ejection fraction. Overnight, patient was transferred to ICU due to worsening dyspnea and respiratory distress. He is currently on BiPAP and is on 60% FiO2. He also received 80 mg of IV Lasix for pulmonary edema and had about 750 mL urine output since then. He reports shortness of breath. He denies chest pain or palpitations. He is on IV Zosyn and vancomycin, bronchodilators and IV steroids. He is being followed by pulmonology closely. No fever or chills. Objective - Vital Signs Vital signs: Vital Signs Temp 99.0 F 06/27/21 08:00 Pulse 84 06/27/21 12:14 Resp 22 06/27/21 12:14 BP 124/80 06/27/21 11:00 Pulse Ox 95 06/27/21 12:14 Intake & Output 06/26/21 06/27/21 06/27/21 18:59 06:59 18:59 Intake Total 2240 1400 150 Output Total 200 2200 750 Balance 2040 -800 -600 Intake: IV 1720 1140 150 Invasive Line 2 10 Piperacillin-Tazobactam 3 100 100 100 .375 gm In Sodium Chloride 0.9% 100 ml @ 25 mls/hr IVPB Q8HR [facility] Rx# :[id number] Sodium Chloride 0.9% 1, 1560 1040 50 000 ml @ 130 mls/hr IV . Q7H42M [facility] Rx#:[id number] cefTRIAXone 1 gm In 50 Sodium Chloride 0.9% 50 ml @ 100 mls/hr IVPB Q24HR [facility] Rx#:[id number] Oral 520 260 Output: Urine 200 2200 750 Other: Voiding Method Urinal Urinal Urinal # Voids 1 2 - Exam Constitutional: Awake, alert HEENT: Pupils equally reactive to light, atraumatic, normocephalic. Lungs: Bilaterally diminished, on BiPAP Cardiovascular: Sinus tachycardia, S1-S2 normal, no murmur, no peripheral edema Abdominal: Soft, nontender, no guarding, rebound or rigidity Extremities: No cyanosis or clubbing Neuro: No focal neurological signs alert - Labs CBC & Chem 7: 06/27/21 07:24 06/27/21 07:24 Labs: Abnormal Lab Results - Last 24 Hours (Table) 06/26/21 06/26/21 06/27/21 Range/Units 08:20 19:35 03:32 WBC (3.8-10.6) k/uL Neutrophils # (1.3-7.7) k/uL Lymphocytes # (1.0-4.8) k/uL ABG pCO2 (35-45) mmHg ABG pO2 (83-108) mmHg ABG HCO3 (21-25) mmol/L ABG O2 Saturation (94-97) % Chloride (98-107) mmol/L BUN (9-20) mg/dL Glucose (74-99) mg/dL POC Glucose (mg/dL) 174 H 145 H (75-99) mg/dL Calcium (8.4-10.2) mg/dL C-Reactive Protein (<1.0) mg/dL Procalcitonin 3.12 H (0.02-0.09) ng/mL 06/27/21 06/27/21 06/27/21 Range/Units 04:21 05:19 06:57 WBC (3.8-10.6) k/uL Neutrophils # (1.3-7.7) k/uL Lymphocytes # (1.0-4.8) k/uL ABG pCO2 29 L (35-45) mmHg ABG pO2 60 L (83-108) mmHg ABG HCO3 20 L (21-25) mmol/L ABG O2 Saturation 92.2 L (94-97) % Chloride (98-107) mmol/L BUN (9-20) mg/dL Glucose (74-99) mg/dL POC Glucose (mg/dL) 131 H 117 H (75-99) mg/dL Calcium (8.4-10.2) mg/dL C-Reactive Protein (<1.0) mg/dL Procalcitonin (0.02-0.09) ng/mL 06/27/21 06/27/21 06/27/21 Range/Units 07:24 07:24 07:24 WBC 19.1 H (3.8-10.6) k/uL Neutrophils # 17.7 H (1.3-7.7) k/uL Lymphocytes # 0.5 L (1.0-4.8) k/uL ABG pCO2 (35-45) mmHg ABG pO2 (83-108) mmHg ABG HCO3 (21-25) mmol/L ABG O2 Saturation (94-97) % Chloride 108 H (98-107) mmol/L BUN 24 H (9-20) mg/dL Glucose 147 H (74-99) mg/dL POC Glucose (mg/dL) (75-99) mg/dL Calcium 7.4 L (8.4-10.2) mg/dL C-Reactive Protein 5.6 H (<1.0) mg/dL Procalcitonin 1.85 H (0.02-0.09) ng/mL 06/27/21 Range/Units 11:22 WBC (3.8-10.6) k/uL Neutrophils # (1.3-7.7) k/uL Lymphocytes # (1.0-4.8) k/uL ABG pCO2 (35-45) mmHg ABG pO2 (83-108) mmHg ABG HCO3 (21-25) mmol/L ABG O2 Saturation (94-97) % Chloride (98-107) mmol/L BUN (9-20) mg/dL Glucose (74-99) mg/dL POC Glucose (mg/dL) 146 H (75-99) mg/dL Calcium (8.4-10.2) mg/dL C-Reactive Protein (<1.0) mg/dL Procalcitonin (0.02-0.09) ng/mL Microbiology - Last 24 Hours (Table) 06/25/21 08:35 Blood Culture - Preliminary Blood No Growth after 48 hours 06/26/21 15:27 Gram Stain - Preliminary Sputum Sputum Culture - Preliminary 06/24/21 17:15 Blood Culture - Preliminary Blood No Growth after 48 hours 06/24/21 17:00 Blood Culture - Preliminary Blood No Growth after 48 hours Assessment and Plan Assessment: 1. Acute hypoxic respiratory failure - Most likely secondary to aspiration pneumonia - On BiPAP, pulmonology following - On IV Zosyn and vancomycin - Sputum culture is pending. 2. Opioid toxicity - Patient takes morphine at home - His encephalopathy improved with Narcan - Narcan as necessary - Continue supportive care and IV fluids at this time 3. COPD exacerbation - Patient has history of smoking since age 18. - On breathing treatments and IV steroids 3. MARIALUISA, resolved with IV fluids, likely prerenal 4. Toxic metabolic encephalopathy - Improved - Multifactorial: Pneumonia, hypoxia, opiate overdose 5. Elevated troponin, likely type II DC due to hypoxia/demand ischemia -Cardiology consult taken, no further cardiac workup recommended. Appreciate input - Echocardiogram reveals preserved ejection fraction. DVT prophylaxis with subcutaneous heparin
[2021-06-27] MEDS: POTASSIUM CHLORIDE 10 MEQ in WATER FOR INJECTION 1 100ML.BAG IVPB SCH ×2 (13:24→16:01)
[2021-06-27 16:54] LABS: Glucose,Whole Blood 158 mg/dL (75-99)
--- NOTE | 2021-06-27 17:43 | P.PN ---
Subjective Progress Note Date: 06/27/21 Principal diagnosis: Pneumonia Patient is a 66-year-old male presented to hospital for evaluation of increasing shortness of breath and confusion in this patient did have a CT angiogram suggestive of bilateral lower lobe extensive pneumonia. Patient has been transferred to the ICU because of worsening hypoxemia On today's evaluation that is 06/27/2021, the patient is afebrile currently on high flow oxygen is hemodynamically stable and aggressive support patient is slightly lethargic and unavailable historian he did have a cough but not bringing up any sputum, no vomiting or diarrhea reported by the nursing staff Objective - Vital Signs Vital signs: Vital Signs Temp 98.4 F 06/27/21 12:00 Pulse 85 06/27/21 13:00 Resp 18 06/27/21 13:00 BP 119/81 06/27/21 13:00 Pulse Ox 92 L 06/27/21 12:30 Intake & Output 06/26/21 06/27/21 06/27/21 18:59 06:59 18:59 Intake Total 2240 1400 640 Output Total 200 2200 750 Balance 2040 -800 -110 Intake: IV 1720 1140 300 Invasive Line 2 10 Piperacillin-Tazobactam 3 100 100 100 .375 gm In Sodium Chloride 0.9% 100 ml @ 25 mls/hr IVPB Q8HR [facility] Rx# :[id number] Sodium Chloride 0.9% 1, 1560 1040 200 000 ml @ 130 mls/hr IV . Q7H42M [facility] Rx#:[id number] cefTRIAXone 1 gm In 50 Sodium Chloride 0.9% 50 ml @ 100 mls/hr IVPB Q24HR [facility] Rx#:[id number] Intake, IV Titration 100 Amount Potassium Chloride 10 meq 100 In Water For Injection 1 100ml.bag @ 100 mls/hr IVPB Q1H [facility] Rx#: [id number] Oral 520 260 240 Output: Urine 200 2200 750 Other: Voiding Method Urinal Urinal Urinal # Voids 1 2 - Exam GENERAL DESCRIPTION: Middle-aged male lying in bed in no distress RESPIRATORY SYSTEM: Unlabored breathing , decreased breath sounds at bases HEART: S1 S2 regular rate and rhythm , ABDOMEN: Soft , no tenderness EXTREMITIES: No edema feet - Labs CBC & Chem 7: 06/27/21 07:24 06/27/21 07:24 Labs: Abnormal Lab Results - Last 24 Hours (Table) 06/26/21 06/26/21 06/27/21 Range/Units 08:20 19:35 03:32 WBC (3.8-10.6) k/uL Neutrophils # (1.3-7.7) k/uL Lymphocytes # (1.0-4.8) k/uL ABG pCO2 (35-45) mmHg ABG pO2 (83-108) mmHg ABG HCO3 (21-25) mmol/L ABG O2 Saturation (94-97) % Chloride (98-107) mmol/L BUN (9-20) mg/dL Glucose (74-99) mg/dL POC Glucose (mg/dL) 174 H 145 H (75-99) mg/dL Calcium (8.4-10.2) mg/dL C-Reactive Protein (<1.0) mg/dL Procalcitonin 3.12 H (0.02-0.09) ng/mL 06/27/21 06/27/21 06/27/21 Range/Units 04:21 05:19 06:57 WBC (3.8-10.6) k/uL Neutrophils # (1.3-7.7) k/uL Lymphocytes # (1.0-4.8) k/uL ABG pCO2 29 L (35-45) mmHg ABG pO2 60 L (83-108) mmHg ABG HCO3 20 L (21-25) mmol/L ABG O2 Saturation 92.2 L (94-97) % Chloride (98-107) mmol/L BUN (9-20) mg/dL Glucose (74-99) mg/dL POC Glucose (mg/dL) 131 H 117 H (75-99) mg/dL Calcium (8.4-10.2) mg/dL C-Reactive Protein (<1.0) mg/dL Procalcitonin (0.02-0.09) ng/mL 06/27/21 06/27/21 06/27/21 Range/Units 07:24 07:24 07:24 WBC 19.1 H (3.8-10.6) k/uL Neutrophils # 17.7 H (1.3-7.7) k/uL Lymphocytes # 0.5 L (1.0-4.8) k/uL ABG pCO2 (35-45) mmHg ABG pO2 (83-108) mmHg ABG HCO3 (21-25) mmol/L ABG O2 Saturation (94-97) % Chloride 108 H (98-107) mmol/L BUN 24 H (9-20) mg/dL Glucose 147 H (74-99) mg/dL POC Glucose (mg/dL) (75-99) mg/dL Calcium 7.4 L (8.4-10.2) mg/dL C-Reactive Protein 5.6 H (<1.0) mg/dL Procalcitonin 1.85 H (0.02-0.09) ng/mL 06/27/21 Range/Units 11:22 WBC (3.8-10.6) k/uL Neutrophils # (1.3-7.7) k/uL Lymphocytes # (1.0-4.8) k/uL ABG pCO2 (35-45) mmHg ABG pO2 (83-108) mmHg ABG HCO3 (21-25) mmol/L ABG O2 Saturation (94-97) % Chloride (98-107) mmol/L BUN (9-20) mg/dL Glucose (74-99) mg/dL POC Glucose (mg/dL) 146 H (75-99) mg/dL Calcium (8.4-10.2) mg/dL C-Reactive Protein (<1.0) mg/dL Procalcitonin (0.02-0.09) ng/mL Microbiology - Last 24 Hours (Table) 06/25/21 08:35 Blood Culture - Preliminary Blood No Growth after 48 hours 06/26/21 15:27 Gram Stain - Preliminary Sputum Sputum Culture - Preliminary 06/24/21 17:15 Blood Culture - Preliminary Blood No Growth after 48 hours 06/24/21 17:00 Blood Culture - Preliminary Blood No Growth after 48 hours Assessment and Plan (1) Bilateral pneumonia Current Visit: Yes Status: Acute Code(s): J18.9 - PNEUMONIA, UNSPECIFIED ORGANISM SNOMED Code(s): 177187102 Plan: 1patient presented hospital with increasing shortness of breath weakness did have a cough in this patient did have elevated white count or low-grade fever and evidence of bilateral lower lobe extensive pneumonia possible community- acquired versus aspiration/gram-negative. Patient has been transferred to the ICU because of hypoxemia 2patient did have elevated CRP procalcitonin sputum for Gram stain culture are currently pending and urine for urine Legionella antigen is negative. 3patient to continue with the Zosyn 3.375 g every 8 hours while waiting for the cultures to be finalized Time with Patient: Less than 30
--- NOTE | 2021-06-27 19:18 | PN ---
PROGRESS NOTE Mr. Quinonez has bilateral pneumonia, hypoxia, past history of smoking and hypercarbia. This gentleman was transferred because of worsening oxygen saturation and is now on a BiPAP. Hemodynamically stable. Urine output has decreased. Vitals are stable. S1-S2 heard normally. Short systolic murmur noted. Lungs reveal bilateral scattered rales. Abdomen is soft, nontender. Lower extremities reveal diminished pulses. Central nervous system grossly no focal deficits. There is generalized weakness. Prognosis remains poor for this patient. Further care per Pulmonary. From a cardiac standpoint, I have no new specific suggestions at this time. His LV function is fairly well preserved and he does not have any significant primary myocardial injury. He has what appears to be hypoxia and hypercarbia and prognosis remains guarded. His pneumonia is being addressed with antibiotics. I requested pulmonary and infectious disease consults yesterday. Prognosis remains guarded. MMODL / IJN: [id number] /
[2021-06-27] MEDS: FORMOTEROL FUMARATE 20 MCG/2 ML NEBU INHALATION SCH (19:53)
[2021-06-27] MEDS: BUDESONIDE 1 MG/2 ML NEBU INHALATION SCH (19:53)
[2021-06-27 20:21] LABS: Glucose,Whole Blood 167 mg/dL (75-99)
[2021-06-28] MEDS: PIPERACILLIN-TAZOBACTAM 3.375 GM in SODIUM CHLORIDE 0.9% 100 ML IVPB SCH ×4 (00:02→23:04)
[2021-06-28] MEDS: methylPREDNISolone SOD SUCCI 125 MG/2 ML VIAL IV SCH ×5 (00:02→23:04)
[2021-06-28] MEDS: HEPARIN SODIUM,PORCINE/PF 5,000 UNIT/0.5 ML SYRINGE SQ SCH ×4 (00:03→23:04)
[2021-06-28] MEDS: MORPHINE SULFATE ER 30 MG TABLET PO SCH ×4 (00:12→23:04)
[2021-06-28] MEDS: VANCOMYCIN 1,500 MG in SODIUM CHLORIDE 0.9% 250 ML IVPB SCH ×2 (04:51→18:03)
[2021-06-28 05:14] LABS: Mycoplasma IgG Antibody (EIA) 1.9 INDEX (<=0.90); Mycoplasma IgM Antibody 0.07 INDEX (<=0.90)
--- NOTE | 2021-06-28 06:00 | XR ---
EXAMINATION TYPE: XR chest 1V portable DATE OF EXAM: 06/28/2021 CLINICAL HISTORY: Difficulty breathing and bilateral pneumonia progress study. TECHNIQUE: Single AP portable upright view of the chest is obtained. COMPARISON: Chest x-ray from one day earlier and older studies. FINDINGS: Continued worsening bilateral multifocal and confluent reticulonodular increased opacities . No pleural effusion or pneumothorax seen bilaterally. Some Lana B lines along the periphery are p resent. Cardiac silhouette size is stable and within normal limits. Surgical change to the cervical s pine and right shoulder are both partially imaged. IMPRESSION: Continued worsening bilateral edema and/or infiltrates as detailed above.
[2021-06-28 06:51] LABS: Basophils # (A) 0.1 k/uL (0-0.2); Basophils % (A) 1 %; Eosinophils % (A) 0 %; HCT 42.6 % (39.0-53.0); HGB 13.6 gm/dL (13.0-17.5); Lymphocytes # (A) 0.5 k/uL (1.0-4.8); Lymphocytes % (A) 4 %; MCH 28.8 pg (25.0-35.0); MCHC 31.8 g/dL (31.0-37.0); MCV 90.4 fL (80.0-100.0); Monocytes # (A) 0.3 k/uL (0-1.0); Monocytes % (A) 3 %; Neutrophils # (A) 10.4 k/uL (1.3-7.7); Neutrophils % (A) 91 %; Platelet Count 242 k/uL (150-450); RBC 4.71 m/uL (4.30-5.90); RDW 14.6 % (11.5-15.5); WBC 11.5 k/uL (3.8-10.6)
[2021-06-28 07:01] LABS: ALT 17 U/L (4-49); AST 30 U/L (17-59); African American GFR (CKD) >90 (>60 ml/min/1.73 sqM); Albumin 2.2 g/dL (3.5-5.0); Alkaline Phosphatase 67 U/L (38-126); Anion Gap 5 mmol/L; Blood Urea Nitrogen 30 mg/dL (9-20); Calcium 7.2 mg/dL (8.4-10.2); Carbon Dioxide 25 mmol/L (22-30); Chloride 106 mmol/L (98-107); Glucose 148 mg/dL (74-99); Non-African American GFR(CKD) 87 (>60 ml/min/1.73 sqM); Potassium 3.5 mmol/L (3.5-5.1); Sodium 136 mmol/L (137-145); Total Bilirubin 0.7 mg/dL (0.2-1.3); Total Protein 4.5 g/dL (6.3-8.2)
[2021-06-28 07:03] LABS: Glucose,Whole Blood 137 mg/dL (75-99)
[2021-06-28] MEDS: INSULIN ASPART (NovoLOG) 100 UNIT/ML VIAL SQ SCH ×4 (07:06→20:18)
[2021-06-28] MEDS: NICOTINE 21MG/24HR PATCH TRANSDERM SCH (07:50)
[2021-06-28] MEDS: POTASSIUM CHLORIDE ER 20 MEQ TAB.ER PO SCH ×2 (07:50→12:12)
[2021-06-28] MEDS: FORMOTEROL FUMARATE 20 MCG/2 ML NEBU INHALATION SCH ×2 (09:03→20:17)
[2021-06-28] MEDS: BUDESONIDE 1 MG/2 ML NEBU INHALATION SCH ×2 (09:04→20:17)
[2021-06-28] MEDS: IPRATROPIUM-ALBUTEROL 3 ML NEB INHALATION SCH ×4 (09:04→20:17)
--- NOTE | 2021-06-28 09:05 | PN ---
PROGRESS NOTE Mr. Quinonez is a gentleman with bilateral pneumonia, hypoxia, elevated troponin, which I do not believe is related to any primary myocardial injury. He is feeling a little better. His breathing is somewhat improved. He still used a BiPAP/CPAP yesterday. Vitals are stable. JVD 1 cm. No carotid bruit. S1-S2 heard normally. Short systolic murmur. Lungs reveal bilateral rales. Abdomen and lower extremity exam unchanged. From a cardiac standpoint no new suggestions. LV function is fairly well preserved. Further management will be by the critical care team. I will continue to see him as needed. MMODL / IJN: [id number] /
[2021-06-28] MEDS ORDERED: FUROSEMIDE 10 MG/ML 4 ML VIAL IV STA (10:11)
--- NOTE | 2021-06-28 11:22 | CDI ---
Documentation Clarification Form Date: 06/28/2021 10:50:46 AM From: Meghan Chavez RN CCDS Admit Date: 06/24/2021 06:49:00 PM Patient Name: Dallas Quinonez Visit Number: [id number] Discharge Date: ATTENTION: The Clinical Documentation Specialists (CDI) and [facility] Coding Staff appreciate your assistance in clarifying documentation. Please respond to the clarification below the line at the bottom and electronically sign. The CDI & [facility] Coding staff will review the response and follow-up if needed. Please note: Queries are made part of the Legal Health Record. If you have any questions, please contact the author of this message via ITS. Dr. Gail Jones MD Sepsis is documented CDI Query, 06/26, but is not noted in subsequent documentation. Clarification is requested. History/Risk Factors:66-year-old male presents to the ED via EMS for suspected opiate overdose. The patient takes morphine 60mg TID and was found to be pale and bradypneic by . The patient had pinpoint pupils, cyanotic and respiratory rate 2/3 breaths per minute per EMS. Medical History: Chronic back pain with prescription drug abuse. 06/24, H&P. Clinical Indicators: LABS: 06/24 Wbc 12.6; Neutrophils 11.4 CT Angio chest: 06/24 Coalescent density at the left lower lobe. Few bronchial bilateral lymph nodes up to 1.5cm. 06/26, Query response: Toxic Metabolic Encephalopathy due to opiate overdose in the setting of MARIALUISA in addition to likely other contributing factors, such as sepsis from community acquired pneumonia with acute hypoxemic respiratory failure. Documented by Dr. Choe. Treatment: 06/24 to current 0.9NS 130cc/hr; 06/25 0.9NS 1L bolus x 1; 06/24 Azithromycin 500mg IVPB x 1; Zithromax 250mg PO Daily x 3 doses; 06/24 Rocephin 2,000mg IVP x 1; 06/25 -06/26 Ceftriaxone 1gm IVPB Q24HR; 06/26 to current Piperacillin 3.375gm IVPB Q8HR; 06/27 current Vancomycin 1,500mg IVPB Q12HR. Please clarify if the Sepsis is: [ X ] Sepsis POA confirmed, remains under treatment (Template Last Revised: May 2020) MTDD
[2021-06-28 11:45] LABS: Glucose,Whole Blood 173 mg/dL (75-99)
--- NOTE | 2021-06-28 12:12 | P.PN ---
Subjective Progress Note Date: 06/28/21 Principal diagnosis: acute hypoxic respiratory failure secondary to aspiration pneumonia 66-year-old white male patient was admitted to the hospital on 06/24/2021 when he presented into the hospital complaining of shortness of breath, cyanosis, and mild confusion. He was brought in by EMS, he was suspected to have a opiate overdose, he was minimally responsive and had pinpoint pupils he was given Narcan with improvement in his respiratory status and resp breathing. Patient denied any fever or cough. His chest x-ray on admission showed genius opacity seen in the left lung base with a smaller one in the right lung base with suspicion for pneumonia. On admission lab evaluation showed white blood cell count is 12.6, hemoglobin was 15, d-dimer was 1.10, electrolytes were unremarkable, patient had evidence of acute kidney injury with BUN of 37 and creatinine is 1.62, mild troponin elevation of 0.071, 0.068, proBNP was 525, LFTs were unremarkable, lactic acid was 1.7. Venous blood gas on admission showed pH of 7.36, pCO2 of 41, and bicarbonate of 23. CT angiogram of the chest showed no evidence of pulmonary embolism, extensive bilateral lower lobe pneumonia, mild bilateral bronchial adenopathy, 4.4 cm aneurysm of the ascending aorta. Echocardiogram showed preserved LV function with EF of 50-55%, trace mitral, trace tricuspid regurg, no evidence of pulmonary hypertension with right ventricular systolic pressure less than 35 mmHg. Patient is currently on azithromycin and Omnicef, he is on IV Solu-Medrol 60 mg every 6 hours, he was fluid resuscitated with subsequent improvement in his renal function. Chest x- ray today on 06/26/2021 showing patchy bilateral lung infiltrates possible worsening bilateral pneumonia. She has been afebrile, he continues to require oxygen of 4 L his pulse ox of 96%. His blood cultures have been negative. His blood work shows white blood cell count 14.7, hemoglobin is 12.6, electrolytes and renal profile were relatively unremarkable. Of note his urine drug screen was positive for opiates, he was tested for COVID-19 per PCR test and was negative. The patient is seen today 06/27/2021 in follow-up in the intensive care unit. He was transferred here due to progressive worsening shortness of breath. He is currently on BiPAP 02/18 and down to 60% FiO2 to maintain O2 saturations in the 90s. Arterial blood gases earlier this morning on 100% FiO2 revealed a pO2 of 60, pCO2 29 and a pH of 7.44. Chest x-ray reveals evidence of COPD with superimposed bilateral groundglass and airspace disease slightly worsened from previous. Within the differential includes aspiration, multifocal pneumonia, atypical pneumonia, hypersensitivity pneumonitis, interstitial pneumonitis. Sputum culture is pending. He also received Lasix and had 750 mls of urine output. blood cultures pending. White count 19.1. Hemoglobin 14.2. Platelets 281. Sodium 139. Potassium 3.5. Bicarb 25. BUN 24. Creatinine 0.97. Pro- calcitonin 3.12. He's been initiated on vancomycin and Zosyn. He is on bronchodilators, IV Solu-Medrol. NicoDerm patch in place. Patient was reevaluated today on 06/28/21, patient remains in the ICU, he is basically about the same may be slightly better compared to yesterday, continues to have shortness of breath, intermittent cough, no chest pain, remains on airvochest x-ray continues to show bilateral infiltrates. Not much improved compared to his chest x-ray yesterday, but definitely not any worse. El ectrolytes are normal CBC is normal renal profile is normal. Objective - Vital Signs Vital signs: Vital Signs Temp 99.3 F 06/28/21 08:00 Pulse 70 06/28/21 11:00 Resp 23 06/28/21 11:00 BP 117/68 06/28/21 11:00 Pulse Ox 97 06/28/21 11:00 Intake & Output 06/27/21 06/28/21 06/28/21 18:59 06:59 18:59 Intake Total 1550 570 420 Output Total 2300 450 200 Balance -750 120 220 Weight 80.8 kg Intake: IV 500 320 180 0.9 120 80 Piperacillin-Tazobactam 3 200 100 100 .375 gm In Sodium Chloride 0.9% 100 ml @ 25 mls/hr IVPB Q8HR [facility] Rx# :[id number] Sodium Chloride 0.9% 1, 300 100 000 ml @ 130 mls/hr IV . Q7H42M [facility] Rx#:[id number] Intake, IV Titration 450 250 Amount Potassium Chloride 10 meq 200 In Water For Injection 1 100ml.bag @ 100 mls/hr IVPB Q1H [facility] Rx#: [id number] Vancomycin 1,500 mg In 250 250 Sodium Chloride 0.9% 250 ml @ 125 mls/hr IVPB Q12H [facility] Rx#:[id number] Oral 600 240 Output: Urine 2300 450 200 Other: Voiding Method Urinal Urinal Urinal # Voids 2 1 # Bowel Movements 1 - Exam GENERAL EXAM: revealed 66-year-old white male, pleasant, on airvo, not in distr ess. HEAD: Normocephalic. EYES: Normal reaction of pupils, equal size. NOSE: Clear with pink turbinates. THROAT: No erythema or exudates. NECK: No masses, no JVD. CHEST: No chest wall deformity. LUNGS: Equal air entry with bilateral scattered rhonchi. CVS: S1 and S2 normal with no audible murmur, regular rhythm. ABDOMEN: No hepatosplenomegaly, normal bowel sounds, no guarding or rigidity. SPINE: No scoliosis or deformity SKIN: No rashes CENTRAL NERVOUS SYSTEM: No focal deficits, tone is normal in all 4 extremities. EXTREMITIES: There is no peripheral edema. No clubbing, no cyanosis. Peripher al pulses are intact. - Labs CBC & Chem 7: 06/28/21 06:31 06/28/21 06:31 Labs: Abnormal Lab Results - Last 24 Hours (Table) 06/26/21 06/27/21 06/27/21 Range/Units 14:17 16:52 20:19 WBC (3.8-10.6) k/uL Neutrophils # (1.3-7.7) k/uL Lymphocytes # (1.0-4.8) k/uL Sodium (137-145) mmol/L BUN (9-20) mg/dL Glucose (74-99) mg/dL POC Glucose (mg/dL) 158 H 167 H (75-99) mg/dL Calcium (8.4-10.2) mg/dL Total Protein (6.3-8.2) g/dL Albumin (3.5-5.0) g/dL Mycoplasma pneumon IgG 1.90 H (<=0.90) INDEX 06/28/21 06/28/21 06/28/21 Range/Units 06:31 06:31 07:01 WBC 11.5 H (3.8-10.6) k/uL Neutrophils # 10.4 H (1.3-7.7) k/uL Lymphocytes # 0.5 L (1.0-4.8) k/uL Sodium 136 L (137-145) mmol/L BUN 30 H (9-20) mg/dL Glucose 148 H (74-99) mg/dL POC Glucose (mg/dL) 137 H (75-99) mg/dL Calcium 7.2 L (8.4-10.2) mg/dL Total Protein 4.5 L (6.3-8.2) g/dL Albumin 2.2 L (3.5-5.0) g/dL Mycoplasma pneumon IgG (<=0.90) INDEX 06/28/21 Range/Units 11:43 WBC (3.8-10.6) k/uL Neutrophils # (1.3-7.7) k/uL Lymphocytes # (1.0-4.8) k/uL Sodium (137-145) mmol/L BUN (9-20) mg/dL Glucose (74-99) mg/dL POC Glucose (mg/dL) 173 H (75-99) mg/dL Calcium (8.4-10.2) mg/dL Total Protein (6.3-8.2) g/dL Albumin (3.5-5.0) g/dL Mycoplasma pneumon IgG (<=0.90) INDEX Microbiology - Last 24 Hours (Table) 06/25/21 08:35 Blood Culture - Preliminary Blood No Growth after 72 hours 06/28/21 01:07 Sputum Culture - Preliminary Sputum 06/26/21 15:27 Gram Stain - Final Sputum Sputum Culture - Final Vesna albicans 06/26/21 15:37 Legionella Culture - Preliminary Sputum 06/24/21 17:00 Blood Culture - Preliminary Blood No Growth after 72 hours 06/24/21 17:15 Blood Culture - Preliminary Blood No Growth after 72 hours Assessment and Plan Assessment: impression: Acute hypoxic respiratory failure secondary to aspiration pneumonia is strongly suspected. ARDS secondary to pneumonia. History of depression. Acute kidney injury, improving. Tobacco dependence syndrome. Recommendation: continue antibiotics. continue bronchodilators. continue updrafts. Continue IV Solu-Medrol. Intermittent diuresis. Continue nicotine patches We'll continue to monitor in the ICU. If the patient gets any worse, we will definitely perform bronchoscopy and BAL. However the patient would have to be intubated to perform that safely. Time with Patient: Less than 30
--- NOTE | 2021-06-28 13:35 | P.PN ---
Subjective Progress Note Date: 06/28/21 Patient was transferred to the ICU yesterday after his shortness of breath worsened, and his oxygen demand increased. He was initially placed on BiPAP 02/18 but then transitioned to high flow nasal cannula and FiO2 60%. He had received 3 days of IV ceftriaxone and azithromycin, this was changed to vancomy [place] and Zosyn after there is no improvement 2 days ago. He reports feeling slightly better today, but there has been no significant improvement in the last 24 hours Objective - Vital Signs Vital signs: Vital Signs Temp 99.3 F 06/28/21 08:00 Pulse 75 06/28/21 12:00 Resp 15 06/28/21 12:00 BP 117/64 06/28/21 12:00 Pulse Ox 95 06/28/21 12:00 Intake & Output 06/27/21 06/28/21 06/28/21 18:59 06:59 18:59 Intake Total 1550 570 800 Output Total 2300 450 200 Balance -750 120 600 Weight 80.8 kg Intake: IV 500 320 200 0.9 120 100 Piperacillin-Tazobactam 3 200 100 100 .375 gm In Sodium Chloride 0.9% 100 ml @ 25 mls/hr IVPB Q8HR [facility] Rx# :[id number] Sodium Chloride 0.9% 1, 300 100 000 ml @ 130 mls/hr IV . Q7H42M [facility] Rx#:[id number] Intake, IV Titration 450 250 Amount Potassium Chloride 10 meq 200 In Water For Injection 1 100ml.bag @ 100 mls/hr IVPB Q1H [facility] Rx#: [id number] Vancomycin 1,500 mg In 250 250 Sodium Chloride 0.9% 250 ml @ 125 mls/hr IVPB Q12H [facility] Rx#:[id number] Oral 600 600 Output: Urine 2300 450 200 Other: Voiding Method Urinal Urinal Urinal # Voids 2 1 # Bowel Movements 1 - Constitutional General appearance: Present: average body habitus, cooperative - EENT Eyes: Present: EOMI, PERRLA ENT: Present: hard of hearing - Neck Neck: Present: normal ROM - Respiratory Respiratory: bilateral: diminished, negative: wheezing - Cardiovascular Rhythm: regular Heart sounds: normal: S1, S2 Abnormal Heart Sounds: Absent: systolic murmur - Gastrointestinal General gastrointestinal: Present: decreased bowel sounds. Absent: tenderness - Integumentary Integumentary: Absent: cellulitis, jaundiced, pale - Neurologic Neurologic: Present: CNII-XII intact. Absent: focal deficits - Musculoskeletal Musculoskeletal: Present: strength equal bilaterally - Psychiatric Psychiatric: Present: A&O x's 3, appropriate affect - Labs CBC & Chem 7: 06/28/21 06:31 06/28/21 06:31 Labs: Abnormal Lab Results - Last 24 Hours (Table) 06/26/21 06/27/21 06/27/21 Range/Units 14:17 16:52 20:19 WBC (3.8-10.6) k/uL Neutrophils # (1.3-7.7) k/uL Lymphocytes # (1.0-4.8) k/uL Sodium (137-145) mmol/L BUN (9-20) mg/dL Glucose (74-99) mg/dL POC Glucose (mg/dL) 158 H 167 H (75-99) mg/dL Calcium (8.4-10.2) mg/dL Total Protein (6.3-8.2) g/dL Albumin (3.5-5.0) g/dL Mycoplasma pneumon IgG 1.90 H (<=0.90) INDEX 06/28/21 06/28/21 06/28/21 Range/Units 06:31 06:31 07:01 WBC 11.5 H (3.8-10.6) k/uL Neutrophils # 10.4 H (1.3-7.7) k/uL Lymphocytes # 0.5 L (1.0-4.8) k/uL Sodium 136 L (137-145) mmol/L BUN 30 H (9-20) mg/dL Glucose 148 H (74-99) mg/dL POC Glucose (mg/dL) 137 H (75-99) mg/dL Calcium 7.2 L (8.4-10.2) mg/dL Total Protein 4.5 L (6.3-8.2) g/dL Albumin 2.2 L (3.5-5.0) g/dL Mycoplasma pneumon IgG (<=0.90) INDEX 06/28/21 Range/Units 11:43 WBC (3.8-10.6) k/uL Neutrophils # (1.3-7.7) k/uL Lymphocytes # (1.0-4.8) k/uL Sodium (137-145) mmol/L BUN (9-20) mg/dL Glucose (74-99) mg/dL POC Glucose (mg/dL) 173 H (75-99) mg/dL Calcium (8.4-10.2) mg/dL Total Protein (6.3-8.2) g/dL Albumin (3.5-5.0) g/dL Mycoplasma pneumon IgG (<=0.90) INDEX Microbiology - Last 24 Hours (Table) 06/25/21 08:35 Blood Culture - Preliminary Blood No Growth after 72 hours 06/28/21 01:07 Sputum Culture - Preliminary Sputum 06/26/21 15:27 Gram Stain - Final Sputum Sputum Culture - Final Vesna albicans 06/26/21 15:37 Legionella Culture - Preliminary Sputum 06/24/21 17:00 Blood Culture - Preliminary Blood No Growth after 72 hours 06/24/21 17:15 Blood Culture - Preliminary Blood No Growth after 72 hours Assessment and Plan Plan: Severe sepsis-present on admission -SIRS criteria: HR>90, RR>20, WBC>12 -Source: Bilateral pneumonia -Endorgan damage: Hypoxia -Slight improvement today. Patient was transitioned from ceftriaxone and azithromycin to vancomycin and Zosyn 2 days ago after there was a significant decline -Cultures negative to date -Mycoplasma IgG positive, IgM negative. This most likely indicates a remote mycoplasma infection as IgM levels dropped significantly before [place] Acute hypoxic respiratory failure - Most likely secondary to aspiration pneumonia - Transitioned to high flow nasal cannula 60%. He was on BiPAP yesterday - On IV Zosyn and vancomycin - Sputum culture is pending. Opioid toxicity - Patient takes morphine at home - His encephalopathy improved with Narcan - Narcan as necessary - Continue supportive care and IV fluids at this time COPD exacerbation -Slight improvement - Patient has history of smoking since age 18. - On breathing treatments and IV steroids MARIALUISA resolved with IV fluids, likely prerenal Toxic metabolic encephalopathy - Improved - Multifactorial: Pneumonia, hypoxia, opiate overdose Elevated troponin, likely type II ME due to hypoxia/demand ischemia -Cardiology consulted no further cardiac workup recommended. Appreciate input - Echocardiogram reveals preserved ejection fraction, no wall motion abnormalities Time with Patient: Less than 30
--- NOTE | 2021-06-28 15:56 | P.PN ---
Subjective Progress Note Date: 06/28/21 Principal diagnosis: Pneumonia Patient is a 66-year-old male presented to hospital for evaluation of increasing shortness of breath and confusion in this patient did have a CT angiogram suggestive of bilateral lower lobe extensive pneumonia. Patient has been transferred to the ICU because of worsening hypoxemia On today's evaluation that is 06/28/2021, the patient remains to be afebrile, the patient is currently on high flow oxygen is hemodynamically stable and not requiring any pressor support, the patient is slightly more awake and alert eating his lunch denies having any chest pain no worsening cough or sputum production no abdominal pain no diarrhea Objective - Vital Signs Vital signs: Vital Signs Temp 99.3 F 06/28/21 08:00 Pulse 77 06/28/21 13:37 Resp 22 06/28/21 13:37 BP 117/64 06/28/21 12:00 Pulse Ox 94 L 06/28/21 13:25 Intake & Output 06/27/21 06/28/21 06/28/21 18:59 06:59 18:59 Intake Total 1550 570 800 Output Total 2300 450 200 Balance -750 120 600 Weight 80.8 kg Intake: IV 500 320 200 0.9 120 100 Piperacillin-Tazobactam 3 200 100 100 .375 gm In Sodium Chloride 0.9% 100 ml @ 25 mls/hr IVPB Q8HR [facility] Rx# :[id number] Sodium Chloride 0.9% 1, 300 100 000 ml @ 130 mls/hr IV . Q7H42M [facility] Rx#:[id number] Intake, IV Titration 450 250 Amount Potassium Chloride 10 meq 200 In Water For Injection 1 100ml.bag @ 100 mls/hr IVPB Q1H [facility] Rx#: [id number] Vancomycin 1,500 mg In 250 250 Sodium Chloride 0.9% 250 ml @ 125 mls/hr IVPB Q12H [facility] Rx#:[id number] Oral 600 600 Output: Urine 2300 450 200 Other: Voiding Method Urinal Urinal Urinal # Voids 2 1 # Bowel Movements 1 - Exam GENERAL DESCRIPTION: Middle-aged male lying in bed in no distress RESPIRATORY SYSTEM: Unlabored breathing , decreased breath sounds at bases HEART: S1 S2 regular rate and rhythm , ABDOMEN: Soft , no tenderness EXTREMITIES: No edema feet - Labs CBC & Chem 7: 06/28/21 06:31 06/28/21 06:31 Labs: Abnormal Lab Results - Last 24 Hours (Table) 06/26/21 06/27/21 06/27/21 Range/Units 14:17 16:52 20:19 WBC (3.8-10.6) k/uL Neutrophils # (1.3-7.7) k/uL Lymphocytes # (1.0-4.8) k/uL Sodium (137-145) mmol/L BUN (9-20) mg/dL Glucose (74-99) mg/dL POC Glucose (mg/dL) 158 H 167 H (75-99) mg/dL Calcium (8.4-10.2) mg/dL Total Protein (6.3-8.2) g/dL Albumin (3.5-5.0) g/dL Mycoplasma pneumon IgG 1.90 H (<=0.90) INDEX 06/28/21 06/28/21 06/28/21 Range/Units 06:31 06:31 07:01 WBC 11.5 H (3.8-10.6) k/uL Neutrophils # 10.4 H (1.3-7.7) k/uL Lymphocytes # 0.5 L (1.0-4.8) k/uL Sodium 136 L (137-145) mmol/L BUN 30 H (9-20) mg/dL Glucose 148 H (74-99) mg/dL POC Glucose (mg/dL) 137 H (75-99) mg/dL Calcium 7.2 L (8.4-10.2) mg/dL Total Protein 4.5 L (6.3-8.2) g/dL Albumin 2.2 L (3.5-5.0) g/dL Mycoplasma pneumon IgG (<=0.90) INDEX 06/28/21 Range/Units 11:43 WBC (3.8-10.6) k/uL Neutrophils # (1.3-7.7) k/uL Lymphocytes # (1.0-4.8) k/uL Sodium (137-145) mmol/L BUN (9-20) mg/dL Glucose (74-99) mg/dL POC Glucose (mg/dL) 173 H (75-99) mg/dL Calcium (8.4-10.2) mg/dL Total Protein (6.3-8.2) g/dL Albumin (3.5-5.0) g/dL Mycoplasma pneumon IgG (<=0.90) INDEX Microbiology - Last 24 Hours (Table) 06/25/21 08:35 Blood Culture - Preliminary Blood No Growth after 72 hours 06/28/21 01:07 Sputum Culture - Preliminary Sputum 06/26/21 15:27 Gram Stain - Final Sputum Sputum Culture - Final Vesna albicans 06/26/21 15:37 Legionella Culture - Preliminary Sputum 06/24/21 17:00 Blood Culture - Preliminary Blood No Growth after 72 hours 06/24/21 17:15 Blood Culture - Preliminary Blood No Growth after 72 hours Assessment and Plan (1) Bilateral pneumonia Current Visit: Yes Status: Acute Code(s): J18.9 - PNEUMONIA, UNSPECIFIED ORGANISM SNOMED Code(s): 615126262 Plan: 1patient presented hospital with increasing shortness of breath weakness did have a cough in this patient did have elevated white count or low-grade fever and evidence of bilateral lower lobe extensive pneumonia possible community- acquired versus aspiration/gram-negative. Patient has been transferred to the ICU because of hypoxemia 2patient did have elevated CRP procalcitonin sputum for Gram stain culture are currently pending and urine for urine Legionella antigen is negative. 3patient is currently being treated with the Zosyn 3.375 g every 8 hours , vancomycin has been added kidney function will need to be monitored closely and will adjust antibiotics further on bases culture report Time with Patient: Less than 30
[2021-06-28 16:56] LABS: Glucose,Whole Blood 175 mg/dL (75-99)
[2021-06-28 20:08] LABS: Glucose,Whole Blood 195 mg/dL (75-99)
[2021-06-28] MEDS: MELATONIN 3 MG TABLET PO SCH (20:17)
[2021-06-29] MEDS ORDERED: VANCOMYCIN TROUGH DUE 1 EACH MISC MISCELLANE ONE (04:00)
[2021-06-29 04:55] LABS: Basophils # (A) 0.1 k/uL (0-0.2); Basophils % (A) 0 %; Eosinophils % (A) 0 %; HCT 39.3 % (39.0-53.0); HGB 12.9 gm/dL (13.0-17.5); Lymphocytes # (A) 0.5 k/uL (1.0-4.8); Lymphocytes % (A) 4 %; MCH 29.5 pg (25.0-35.0); MCHC 32.9 g/dL (31.0-37.0); MCV 89.8 fL (80.0-100.0); Mean Platelet Volume 7.9; Monocytes # (A) 0.3 k/uL (0-1.0); Monocytes % (A) 2 %; Neutrophils # (A) 9.6 k/uL (1.3-7.7); Neutrophils % (A) 92 %; Platelet Count 252 k/uL (150-450); RBC 4.38 m/uL (4.30-5.90); WBC 10.5 k/uL (3.8-10.6)
[2021-06-29 05:55] LABS: African American GFR (CKD) >90 (>60 ml/min/1.73 sqM); Anion Gap 4 mmol/L; Blood Urea Nitrogen 34 mg/dL (9-20); Calcium 7.3 mg/dL (8.4-10.2); Carbon Dioxide 26 mmol/L (22-30); Chloride 104 mmol/L (98-107); Glucose 147 mg/dL (74-99); Non-African American GFR(CKD) >90 (>60 ml/min/1.73 sqM); Potassium 3.7 mmol/L (3.5-5.1); Sodium 134 mmol/L (137-145)
[2021-06-29] MEDS: VANCOMYCIN 1,500 MG in SODIUM CHLORIDE 0.9% 250 ML IVPB SCH ×2 (05:57→17:02)
[2021-06-29] MEDS: methylPREDNISolone SOD SUCCI 125 MG/2 ML VIAL IV SCH (05:57)
--- NOTE | 2021-06-29 07:18 | XR ---
EXAMINATION TYPE: XR chest 1V portable DATE OF EXAM: 06/29/2021 HISTORY: Shortness of breath. COMPARISON: 06/28/2021 TECHNIQUE: Single view of the chest is submitted. FINDINGS: Demonstrated are scattered senescent parenchymal change. Reticulonodular infiltrates throughout both lung trivedi persist although there is slight interval imp rovement. Lana B lines persistent left lower lobe with small effusion. The heart is stable. Hilar and mediastinal structures are within normal limits. Degenerative changes are seen of the dorsal spine. IMPRESSION: 1. Reticulonodular infiltrates throughout both lung trivedi persist although there is slight interval improvement. Lana B lines persistent left lower lobe with small effusion.
[2021-06-29] MEDS: IPRATROPIUM-ALBUTEROL 3 ML NEB INHALATION SCH ×4 (08:12→20:14)
[2021-06-29] MEDS: MORPHINE SULFATE ER 30 MG TABLET PO SCH ×2 (08:13→16:18)
[2021-06-29] MEDS: NICOTINE 21MG/24HR PATCH TRANSDERM SCH (08:13)
[2021-06-29] MEDS: FORMOTEROL FUMARATE 20 MCG/2 ML NEBU INHALATION SCH (08:13)
[2021-06-29] MEDS: BUDESONIDE 1 MG/2 ML NEBU INHALATION SCH ×2 (08:13→20:14)
[2021-06-29] MEDS: HEPARIN SODIUM,PORCINE/PF 5,000 UNIT/0.5 ML SYRINGE SQ SCH ×2 (08:13→16:17)
[2021-06-29] MEDS: PIPERACILLIN-TAZOBACTAM 3.375 GM in SODIUM CHLORIDE 0.9% 100 ML IVPB SCH ×2 (08:13→16:18)
[2021-06-29] MEDS: INSULIN ASPART (NovoLOG) 100 UNIT/ML VIAL SQ SCH ×4 (08:13→20:22)
[2021-06-29] MEDS ORDERED: FUROSEMIDE 10 MG/ML 4 ML VIAL IV STA (09:19)
[2021-06-29] MEDS ORDERED: TEMAZEPAM 30 MG CAP PO PRN (09:22)
--- NOTE | 2021-06-29 09:59 | PN ---
PROGRESS NOTE Mr. Quinonez has bilateral pneumonia, hypoxia. He is improving. He is sitting up and eating. Oxygenation has improved. No chest pain or palpitations. Maintaining sinus rhythm. S1, S2 heard normally. No significant murmurs. Lungs reveal bilateral scattered rales. Abdomen and lower extremity exam unchanged. Will continue current medical regimen. Prognosis remains guarded. MMODL / IJN: [id number] /
--- NOTE | 2021-06-29 11:44 | P.PN ---
Subjective Progress Note Date: 06/29/21 Principal diagnosis: acute hypoxic respiratory failure secondary to aspiration pneumonia 66-year-old white male patient was admitted to the hospital on 06/24/2021 when he presented into the hospital complaining of shortness of breath, cyanosis, and mild confusion. He was brought in by EMS, he was suspected to have a opiate overdose, he was minimally responsive and had pinpoint pupils he was given Narcan with improvement in his respiratory status and resp breathing. Patient denied any fever or cough. His chest x-ray on admission showed genius opacity seen in the left lung base with a smaller one in the right lung base with suspicion for pneumonia. On admission lab evaluation showed white blood cell count is 12.6, hemoglobin was 15, d-dimer was 1.10, electrolytes were unremarkable, patient had evidence of acute kidney injury with BUN of 37 and creatinine is 1.62, mild troponin elevation of 0.071, 0.068, proBNP was 525, LFTs were unremarkable, lactic acid was 1.7. Venous blood gas on admission showed pH of 7.36, pCO2 of 41, and bicarbonate of 23. CT angiogram of the chest showed no evidence of pulmonary embolism, extensive bilateral lower lobe pneumonia, mild bilateral bronchial adenopathy, 4.4 cm aneurysm of the ascending aorta. Echocardiogram showed preserved LV function with EF of 50-55%, trace mitral, trace tricuspid regurg, no evidence of pulmonary hypertension with right ventricular systolic pressure less than 35 mmHg. Patient is currently on azithromycin and Omnicef, he is on IV Solu-Medrol 60 mg every 6 hours, he was fluid resuscitated with subsequent improvement in his renal function. Chest x- ray today on 06/26/2021 showing patchy bilateral lung infiltrates possible worsening bilateral pneumonia. She has been afebrile, he continues to require oxygen of 4 L his pulse ox of 96%. His blood cultures have been negative. His blood work shows white blood cell count 14.7, hemoglobin is 12.6, electrolytes and renal profile were relatively unremarkable. Of note his urine drug screen was positive for opiates, he was tested for COVID-19 per PCR test and was negative. The patient is seen today 06/27/2021 in follow-up in the intensive care unit. He was transferred here due to progressive worsening shortness of breath. He is currently on BiPAP 02/18 and down to 60% FiO2 to maintain O2 saturations in the 90s. Arterial blood gases earlier this morning on 100% FiO2 revealed a pO2 of 60, pCO2 29 and a pH of 7.44. Chest x-ray reveals evidence of COPD with superimposed bilateral groundglass and airspace disease slightly worsened from previous. Within the differential includes aspiration, multifocal pneumonia, atypical pneumonia, hypersensitivity pneumonitis, interstitial pneumonitis. Sputum culture is pending. He also received Lasix and had 750 mls of urine output. blood cultures pending. White count 19.1. Hemoglobin 14.2. Platelets 281. Sodium 139. Potassium 3.5. Bicarb 25. BUN 24. Creatinine 0.97. Pro- calcitonin 3.12. He's been initiated on vancomycin and Zosyn. He is on bronchodilators, IV Solu-Medrol. NicoDerm patch in place. Patient was reevaluated today on 06/28/21, patient remains in the ICU, he is basically about the same may be slightly better compared to yesterday, continues to have shortness of breath, intermittent cough, no chest pain, remains on airvochest x-ray continues to show bilateral infiltrates. Not much improved compared to his chest x-ray yesterday, but definitely not any worse. El ectrolytes are normal CBC is normal renal profile is normal. Reevaluated today on 06/29/21, patient remains in the ICU, remains on airvo at 15 L flow and 40% FiO2. Patient is on vancomycin and Zosyn. Chest x-ray is showing slight improvement in his bilateral infiltrates. Patient remains on Lasix daily 40 mg IV push daily, he is on Solu-Medrol which I cut it down to 40 mg daily 8, patient is having difficulty falling asleep at night and I recommended the Restoril at 50 mg daily at bedtime. ABC today is relatively normal electrolytes are relatively normal except for low potassium of 3.7. Re nal profile is normal sputum cultures are nondiagnostic. Pro-calcitonin level was high as high as 3.12. Consistent with pneumonia Objective - Vital Signs Vital signs: Vital Signs Temp 98.2 F 06/29/21 08:00 Pulse 80 06/29/21 11:27 Resp 12 06/29/21 11:00 BP 114/70 06/29/21 11:00 Pulse Ox 92 L 06/29/21 11:00 Intake & Output 06/28/21 06/29/21 06/29/21 18:59 06:59 18:59 Intake Total 1540 1450 450 Output Total 1200 625 200 Balance 340 825 250 Intake: IV 330 490 50 0.9 130 140 50 Piperacillin-Tazobactam 3 200 100 .375 gm In Sodium Chloride 0.9% 100 ml @ 25 mls/hr IVPB Q8HR [facility] Rx# :[id number] Vancomycin 1,500 mg In 250 Sodium Chloride 0.9% 250 ml @ 125 mls/hr IVPB Q12H [facility] Rx#:[id number] Intake, IV Titration 250 Amount Vancomycin 1,500 mg In 250 Sodium Chloride 0.9% 250 ml @ 125 mls/hr IVPB Q12H [facility] Rx#:[id number] Oral 960 960 400 Output: Urine 1200 625 200 Other: Voiding Method Urinal Urinal Urinal # Voids 0 1 # Bowel Movements 1 1 - Exam GENERAL EXAM: revealed 66-year-old white male, pleasant, on airvo, not in distress. HEAD: Normocephalic. EYES: Normal reaction of pupils, equal size. NOSE: Clear with pink turbinates. THROAT: No erythema or exudates. NECK: No masses, no JVD. CHEST: No chest wall deformity. LUNGS: Equal air entry with bilateral scattered rhonchi. CVS: S1 and S2 normal with no audible murmur, regular rhythm. ABDOMEN: No hepatosplenomegaly, normal bowel sounds, no guarding or rigidity. SKIN: No rashes CENTRAL NERVOUS SYSTEM: Alert oriented 3 no gross focal deficits. EXTREMITIES: There is no peripheral edema. No clubbing, no cyanosis. Peripheral pulses are intact. - Labs CBC & Chem 7: 06/29/21 04:41 06/29/21 04:41 Labs: Abnormal Lab Results - Last 24 Hours (Table) 06/28/21 06/28/21 06/28/21 Range/Units 11:43 16:54 20:07 Hgb (13.0-17.5) gm/dL Neutrophils # (1.3-7.7) k/uL Lymphocytes # (1.0-4.8) k/uL Sodium (137-145) mmol/L BUN (9-20) mg/dL Glucose (74-99) mg/dL POC Glucose (mg/dL) 173 H 175 H 195 H (75-99) mg/dL Calcium (8.4-10.2) mg/dL 06/29/21 06/29/21 Range/Units 04:41 04:41 Hgb 12.9 L (13.0-17.5) gm/dL Neutrophils # 9.6 H (1.3-7.7) k/uL Lymphocytes # 0.5 L (1.0-4.8) k/uL Sodium 134 L (137-145) mmol/L BUN 34 H (9-20) mg/dL Glucose 147 H (74-99) mg/dL POC Glucose (mg/dL) (75-99) mg/dL Calcium 7.3 L (8.4-10.2) mg/dL Microbiology - Last 24 Hours (Table) 06/25/21 08:35 Blood Culture - Preliminary Blood No Growth after 96 hours 06/28/21 01:07 Gram Stain - Preliminary Sputum Sputum Culture - Preliminary 06/24/21 17:00 Blood Culture - Preliminary Blood No Growth after 96 hours 06/24/21 17:15 Blood Culture - Preliminary Blood No Growth after 96 hours 06/26/21 15:27 Gram Stain - Final Sputum Sputum Culture - Final Vesna albicans Assessment and Plan Assessment: impression: Acute hypoxic respiratory failure secondary to aspiration pneumonia is strongly suspected. ARDS secondary to pneumonia. History of depression. Acute kidney injury, improving. Tobacco dependence syndrome. Recommendation: continue antibiotics. continue bronchodilators. continue updrafts. Continue IV Solu-Medrol. Cut down dose to 40 mg IV push every 6 hours. Intermittent diuresis. Patient will receive a dose of Lasix this morning. Continue nicotine patches We'll continue to monitor in the ICU. Prognosis remains relatively guarded. Time with Patient: Less than 30
[2021-06-29 11:59] LABS: Glucose,Whole Blood 163 mg/dL (75-99)
[2021-06-29] MEDS: methylPREDNISolone SOD SUCCI 40 MG/ML 1 ML VIAL IV SCH (16:18)
[2021-06-29 16:27] LABS: Glucose,Whole Blood 189 mg/dL (75-99)
[2021-06-29] MEDS ORDERED: BENZOCAINE/MENTHOL LOZENG 1 EACH LOZENGE MUCOUS MEM PRN (17:01)
--- NOTE | 2021-06-29 17:32 | P.PN ---
Subjective Progress Note Date: 06/29/21 Principal diagnosis: Pneumonia Patient is a 66-year-old male presented to hospital for evaluation of increasing shortness of breath and confusion in this patient did have a CT angiogram suggestive of bilateral lower lobe extensive pneumonia. Patient has been transferred to the ICU because of worsening hypoxemia On today's evaluation that is 06/29/2021, the patient continues to be afebrile, the patient is breathing comfortably today, the patient is hemodynamically s table not requiring any pressor support, the patient denies any chest pain he did have a cough but not bringing up any sputum no nausea no vomiting no abdominal pain or diarrhea Objective - Vital Signs Vital signs: Vital Signs Temp 98.4 F 06/29/21 16:00 Pulse 75 06/29/21 17:00 Resp 15 06/29/21 17:00 BP 126/72 06/29/21 17:00 Pulse Ox 95 06/29/21 17:00 Intake & Output 06/28/21 06/29/21 06/29/21 18:59 06:59 18:59 Intake Total 1540 1450 910 Output Total 5837 530 6968 Balance 340 825 -540 Intake: IV 330 490 110 0.9 130 140 110 Piperacillin-Tazobactam 3 200 100 .375 gm In Sodium Chloride 0.9% 100 ml @ 25 mls/hr IVPB Q8HR [facility] Rx# :[id number] Vancomycin 1,500 mg In 250 Sodium Chloride 0.9% 250 ml @ 125 mls/hr IVPB Q12H [facility] Rx#:[id number] Intake, IV Titration 250 Amount Vancomycin 1,500 mg In 250 Sodium Chloride 0.9% 250 ml @ 125 mls/hr IVPB Q12H [facility] Rx#:[id number] Oral 960 960 800 Output: Urine 2586 338 3118 Other: Voiding Method Urinal Urinal Urinal # Voids 0 1 # Bowel Movements 1 1 - Exam GENERAL DESCRIPTION: Middle-aged male lying in bed in no distress RESPIRATORY SYSTEM: Unlabored breathing , decreased breath sounds at bases HEART: S1 S2 regular rate and rhythm , ABDOMEN: Soft , no tenderness EXTREMITIES: No edema feet - Labs CBC & Chem 7: 06/29/21 04:41 06/29/21 04:41 Labs: Abnormal Lab Results - Last 24 Hours (Table) 06/28/21 06/29/21 06/29/21 Range/Units 20:07 04:41 04:41 Hgb 12.9 L (13.0-17.5) gm/dL Neutrophils # 9.6 H (1.3-7.7) k/uL Lymphocytes # 0.5 L (1.0-4.8) k/uL Sodium 134 L (137-145) mmol/L BUN 34 H (9-20) mg/dL Glucose 147 H (74-99) mg/dL POC Glucose (mg/dL) 195 H (75-99) mg/dL Calcium 7.3 L (8.4-10.2) mg/dL 06/29/21 06/29/21 Range/Units 11:57 16:25 Hgb (13.0-17.5) gm/dL Neutrophils # (1.3-7.7) k/uL Lymphocytes # (1.0-4.8) k/uL Sodium (137-145) mmol/L BUN (9-20) mg/dL Glucose (74-99) mg/dL POC Glucose (mg/dL) 163 H 189 H (75-99) mg/dL Calcium (8.4-10.2) mg/dL Microbiology - Last 24 Hours (Table) 06/28/21 01:07 Gram Stain - Preliminary Sputum Sputum Culture - Preliminary Vesna albicans 06/25/21 08:35 Blood Culture - Preliminary Blood No Growth after 96 hours 06/24/21 17:00 Blood Culture - Preliminary Blood No Growth after 96 hours 06/24/21 17:15 Blood Culture - Preliminary Blood No Growth after 96 hours Assessment and Plan (1) Bilateral pneumonia Current Visit: Yes Status: Acute Code(s): J18.9 - PNEUMONIA, UNSPECIFIED ORGANISM SNOMED Code(s): 017799518 Plan: 1patient presented hospital with increasing shortness of breath weakness did have a cough in this patient did have elevated white count or low-grade fever and evidence of bilateral lower lobe extensive pneumonia possible community- acquired versus aspiration/gram-negative. Patient has been transferred to the ICU because of hypoxemia 2patient did have elevated CRP procalcitonin sputum for Gram stain culture growing Vesna possible colonizer , urine for urine Legionella antigen is negative. 3patient seemed to have shown clinical improvement and will continue with the Zosyn with no MRSA in the sputum vancomycin will be discontinued to decrease risk of nephrotoxicity Time with Patient: Less than 30
[2021-06-29 20:19] LABS: Glucose,Whole Blood 125 mg/dL (75-99)
[2021-06-29] MEDS: MELATONIN 3 MG TABLET PO SCH (20:24)
[2021-06-29] MEDS: TEMAZEPAM 15 MG CAP PO PRN (20:35)
[2021-06-30] MEDS: methylPREDNISolone SOD SUCCI 40 MG/ML 1 ML VIAL IV SCH ×3 (00:21→16:26)
[2021-06-30] MEDS: HEPARIN SODIUM,PORCINE/PF 5,000 UNIT/0.5 ML SYRINGE SQ SCH ×3 (00:21→16:26)
[2021-06-30] MEDS: MORPHINE SULFATE ER 30 MG TABLET PO SCH ×3 (00:21→16:26)
[2021-06-30] MEDS: PIPERACILLIN-TAZOBACTAM 3.375 GM in SODIUM CHLORIDE 0.9% 100 ML IVPB SCH ×3 (00:22→16:27)
[2021-06-30 06:17] LABS: HCT 38.8 % (39.0-53.0); HGB 12.8 gm/dL (13.0-17.5); MCHC 33.1 g/dL (31.0-37.0); MCV 90.8 fL (80.0-100.0); Mean Platelet Volume 8.1; Platelet Count 248 k/uL (150-450); RBC 4.27 m/uL (4.30-5.90); RDW 14.4 % (11.5-15.5); WBC 9.8 k/uL (3.8-10.6)
[2021-06-30 06:19] LABS: African American GFR (CKD) >90 (>60 ml/min/1.73 sqM); Anion Gap 5 mmol/L; Blood Urea Nitrogen 29 mg/dL (9-20); Calcium 7.4 mg/dL (8.4-10.2); Carbon Dioxide 28 mmol/L (22-30); Chloride 101 mmol/L (98-107); Glucose 139 mg/dL (74-99); Non-African American GFR(CKD) >90 (>60 ml/min/1.73 sqM); Potassium 3.5 mmol/L (3.5-5.1); Sodium 134 mmol/L (137-145)
[2021-06-30 07:01] LABS: Glucose,Whole Blood 157 mg/dL (75-99)
[2021-06-30] MEDS: INSULIN ASPART (NovoLOG) 100 UNIT/ML VIAL SQ SCH ×4 (07:12→20:22)
--- NOTE | 2021-06-30 07:24 | XR ---
EXAMINATION TYPE: XR chest 1V portable DATE OF EXAM: 06/30/2021 HISTORY: Shortness of breath. COMPARISON: 06/29/2021 TECHNIQUE: Single view of the chest is submitted. FINDINGS: Demonstrated are scattered senescent parenchymal change. Reticulonodular infiltrates persist although continue to improve. There is persistent small left-side d pleural effusion. The heart is stable. Hilar and mediastinal structures are within normal limits. Degenerative changes are seen of the dorsal spine. IMPRESSION: 1. Reticulonodular infiltrates persist although continue to improve. There is persistent small left- sided pleural effusion. The heart is stable.
[2021-06-30] MEDS: IPRATROPIUM-ALBUTEROL 3 ML NEB INHALATION SCH ×4 (07:38→19:51)
[2021-06-30] MEDS: BUDESONIDE 1 MG/2 ML NEBU INHALATION SCH ×2 (07:38→19:52)
[2021-06-30] MEDS: NICOTINE 21MG/24HR PATCH TRANSDERM SCH (08:16)
[2021-06-30] MEDS: POTASSIUM CHLORIDE ER 20 MEQ TAB.ER PO SCH ×2 (08:16→10:00)
[2021-06-30] MEDS ORDERED: FUROSEMIDE 10 MG/ML 4 ML VIAL IV STA (09:01)
--- NOTE | 2021-06-30 10:47 | P.PN ---
Subjective Progress Note Date: 06/30/21 Principal diagnosis: acute hypoxic respiratory failure secondary to aspiration pneumonia 66-year-old white male patient was admitted to the hospital on 06/24/2021 when he presented into the hospital complaining of shortness of breath, cyanosis, and mild confusion. He was brought in by EMS, he was suspected to have a opiate overdose, he was minimally responsive and had pinpoint pupils he was given Narcan with improvement in his respiratory status and resp breathing. Patient denied any fever or cough. His chest x-ray on admission showed genius opacity seen in the left lung base with a smaller one in the right lung base with suspicion for pneumonia. On admission lab evaluation showed white blood cell count is 12.6, hemoglobin was 15, d-dimer was 1.10, electrolytes were unremarkable, patient had evidence of acute kidney injury with BUN of 37 and creatinine is 1.62, mild troponin elevation of 0.071, 0.068, proBNP was 525, LFTs were unremarkable, lactic acid was 1.7. Venous blood gas on admission showed pH of 7.36, pCO2 of 41, and bicarbonate of 23. CT angiogram of the chest showed no evidence of pulmonary embolism, extensive bilateral lower lobe pneumonia, mild bilateral bronchial adenopathy, 4.4 cm aneurysm of the ascending aorta. Echocardiogram showed preserved LV function with EF of 50-55%, trace mitral, trace tricuspid regurg, no evidence of pulmonary hypertension with right ventricular systolic pressure less than 35 mmHg. Patient is currently on azithromycin and Omnicef, he is on IV Solu-Medrol 60 mg every 6 hours, he was fluid resuscitated with subsequent improvement in his renal function. Chest x- ray today on 06/26/2021 showing patchy bilateral lung infiltrates possible worsening bilateral pneumonia. She has been afebrile, he continues to require oxygen of 4 L his pulse ox of 96%. His blood cultures have been negative. His blood work shows white blood cell count 14.7, hemoglobin is 12.6, electrolytes and renal profile were relatively unremarkable. Of note his urine drug screen was positive for opiates, he was tested for COVID-19 per PCR test and was negative. The patient is seen today 06/27/2021 in follow-up in the intensive care unit. He was transferred here due to progressive worsening shortness of breath. He is currently on BiPAP 02/18 and down to 60% FiO2 to maintain O2 saturations in the 90s. Arterial blood gases earlier this morning on 100% FiO2 revealed a pO2 of 60, pCO2 29 and a pH of 7.44. Chest x-ray reveals evidence of COPD with superimposed bilateral groundglass and airspace disease slightly worsened from previous. Within the differential includes aspiration, multifocal pneumonia, atypical pneumonia, hypersensitivity pneumonitis, interstitial pneumonitis. Sputum culture is pending. He also received Lasix and had 750 mls of urine output. blood cultures pending. White count 19.1. Hemoglobin 14.2. Platelets 281. Sodium 139. Potassium 3.5. Bicarb 25. BUN 24. Creatinine 0.97. Pro- calcitonin 3.12. He's been initiated on vancomycin and Zosyn. He is on bronchodilators, IV Solu-Medrol. NicoDerm patch in place. Patient was reevaluated today on 06/28/21, patient remains in the ICU, he is basically about the same may be slightly better compared to yesterday, continues to have shortness of breath, intermittent cough, no chest pain, remains on airvochest x-ray continues to show bilateral infiltrates. Not much improved compared to his chest x-ray yesterday, but definitely not any worse. El ectrolytes are normal CBC is normal renal profile is normal. Reevaluated today on 06/29/21, patient remains in the ICU, remains on airvo at 15 L flow and 40% FiO2. Patient is on vancomycin and Zosyn. Chest x-ray is showing slight improvement in his bilateral infiltrates. Patient remains on Lasix daily 40 mg IV push daily, he is on Solu-Medrol which I cut it down to 40 mg daily 8, patient is having difficulty falling asleep at night and I recommended the Restoril at 50 mg daily at bedtime. ABC today is relatively normal electrolytes are relatively normal except for low potassium of 3.7. Re nal profile is normal sputum cultures are nondiagnostic. Pro-calcitonin level was high as high as 3.12. Consistent with pneumonia Reevaluated today on 06/30/21, patient remains in the ICU, patient is feeling much better today, compared to the last few days he is significantly improved. He is down to 4 L nasal cannula at one point he was on airvo with high flow on high FiO2. Now he is on 4 L with O2 saturation in the 90s. Clinically the patient is breathing easier, he is less congested. And is able to cough and clear secretions. His cultures have been nondiagnostic so far. Patient remains on Lasix at 40 mg IV push which I give on a daily basis when necessary. He is also on antibiotics in the form of Zithromax, and he was on vancomycin which has been discontinued. Patient is also on bronchodilators and steroids in the form of Solu-Medrol 40 mg IV push every 8 hours. WBC count today is 9.8 hemoglobin is 12.8. Arthritis are normal renal profile is normal. Chest x-ray significant improvement noted in his bilateral infiltrates. Objective - Vital Signs Vital signs: Vital Signs Temp 98.1 F 06/30/21 08:00 Pulse 92 06/30/21 08:00 Resp 14 06/30/21 08:00 BP 124/74 06/30/21 08:00 Pulse Ox 92 L 06/30/21 08:00 Intake & Output 06/29/21 06/30/21 06/30/21 18:59 06:59 18:59 Intake Total 920 770 270 Output Total 1450 850 0 Balance -530 -80 270 Weight 83 kg Intake: IV 120 290 70 0.9 120 190 70 Piperacillin-Tazobactam 3 100 .375 gm In Sodium Chloride 0.9% 100 ml @ 25 mls/hr IVPB Q8HR [facility] Rx# :[id number] Oral 800 480 200 Output: Urine 1450 850 0 Other: Voiding Method Urinal Urinal # Voids 1 0 1 # Bowel Movements 1 1 1 - Exam GENERAL EXAM: revealed 66-year-old white male, pleasant, on 4 L nasal cannula, not in any distress. HEAD: Normocephalic. EYES: Normal reaction of pupils, equal size. NOSE: Clear with pink turbinates. THROAT: No erythema or exudates. NECK: No masses, no JVD. CHEST: No chest wall deformity. LUNGS: Fine crackles at the bases, no rhonchi no wheezes. CVS: S1 and S2 normal with no audible murmur, regular rhythm. ABDOMEN: No hepatosplenomegaly, normal bowel sounds, no guarding or rigidity. SKIN: No rashes CENTRAL NERVOUS SYSTEM: Alert oriented 3 no gross focal deficits. EXTREMITIES: There is no peripheral edema. No clubbing, no cyanosis. Peripheral pulses are intact. - Labs CBC & Chem 7: 06/30/21 05:47 06/30/21 05:47 Labs: Abnormal Lab Results - Last 24 Hours (Table) 06/29/21 06/29/21 06/29/21 Range/Units 11:57 16:25 20:17 RBC (4.30-5.90) m/uL Hgb (13.0-17.5) gm/dL Hct (39.0-53.0) % Sodium (137-145) mmol/L BUN (9-20) mg/dL Glucose (74-99) mg/dL POC Glucose (mg/dL) 163 H 189 H 125 H (75-99) mg/dL Calcium (8.4-10.2) mg/dL 06/30/21 06/30/21 06/30/21 Range/Units 05:47 05:47 06:59 RBC 4.27 L (4.30-5.90) m/uL Hgb 12.8 L (13.0-17.5) gm/dL Hct 38.8 L (39.0-53.0) % Sodium 134 L (137-145) mmol/L BUN 29 H (9-20) mg/dL Glucose 139 H (74-99) mg/dL POC Glucose (mg/dL) 157 H (75-99) mg/dL Calcium 7.4 L (8.4-10.2) mg/dL Microbiology - Last 24 Hours (Table) 06/28/21 01:07 Gram Stain - Final Sputum Sputum Culture - Final Vesna albicans 06/24/21 17:00 Blood Culture - Preliminary Blood No Growth after 120 hours 06/24/21 17:15 Blood Culture - Preliminary Blood No Growth after 120 hours 06/25/21 08:35 Blood Culture - Preliminary Blood No Growth after 96 hours Assessment and Plan Assessment: impression: Acute hypoxic respiratory failure secondary to aspiration pneumonia is strongly suspected. ARDS secondary to pneumonia. History of depression. Acute kidney injury, improving. Tobacco dependence syndrome. Recommendation: continue antibiotics. Patient is on Zosyn, and his vancomycin was discontinued. continue bronchodilators. continue updrafts. Continue IV Solu-Medrol. Intermittent diuresis. Will recommend another dose of Lasix 20 mg IV push this morning. Continue nicotine patches We'll continue to monitor in the ICU. We will continue to follow Time with Patient: Less than 30
[2021-06-30 11:47] LABS: Glucose,Whole Blood 167 mg/dL (75-99)
--- NOTE | 2021-06-30 14:47 | P.PN ---
Subjective Progress Note Date: 06/29/21 Patient remains in ICU for the second day. He is on airvo at 15 L with FiO2 40%. Chest x-ray today shows slight improvement in terms of the bilateral infiltrates. He has on vancomycin and Zosyn, IV Lasix, and Solu-Medrol. Otherwise there have been no significant changes in the last 24 hours. He still complaining of difficulty falling asleep, he was started on melatonin yesterday which did not provide much benefit. Objective - Vital Signs Vital signs: Vital Signs Temp 98.4 F 06/29/21 16:00 Pulse 75 06/29/21 17:00 Resp 15 06/29/21 17:00 BP 126/72 06/29/21 17:00 Pulse Ox 95 06/29/21 17:00 Intake & Output 06/28/21 06/29/21 06/29/21 18:59 06:59 18:59 Intake Total 1540 1450 910 Output Total 7178 566 4123 Balance 340 825 -540 Intake: IV 330 490 110 0.9 130 140 110 Piperacillin-Tazobactam 3 200 100 .375 gm In Sodium Chloride 0.9% 100 ml @ 25 mls/hr IVPB Q8HR [facility] Rx# :[id number] Vancomycin 1,500 mg In 250 Sodium Chloride 0.9% 250 ml @ 125 mls/hr IVPB Q12H [facility] Rx#:[id number] Intake, IV Titration 250 Amount Vancomycin 1,500 mg In 250 Sodium Chloride 0.9% 250 ml @ 125 mls/hr IVPB Q12H [facility] Rx#:[id number] Oral 960 960 800 Output: Urine 6989 320 2149 Other: Voiding Method Urinal Urinal Urinal # Voids 0 1 # Bowel Movements 1 1 - Constitutional General appearance: Present: average body habitus, cooperative, no acute distress - EENT Eyes: Present: EOMI, PERRLA - Respiratory Respiratory: bilateral: diminished, negative: wheezing - Cardiovascular Rhythm: regular Heart sounds: normal: S1, S2 Abnormal Heart Sounds: Absent: systolic murmur, diastolic murmur - Gastrointestinal General gastrointestinal: Present: normal bowel sounds. Absent: tenderness - Integumentary Integumentary: Absent: cellulitis, cyanotic, jaundiced, pale - Neurologic Neurologic: Present: focal deficits - Musculoskeletal Musculoskeletal: Present: strength equal bilaterally - Psychiatric Psychiatric: Present: A&O x's 3, appropriate affect - Labs CBC & Chem 7: 06/30/21 05:47 06/30/21 05:47 Labs: Abnormal Lab Results - Last 24 Hours (Table) 06/28/21 06/29/21 06/29/21 Range/Units 20:07 04:41 04:41 Hgb 12.9 L (13.0-17.5) gm/dL Neutrophils # 9.6 H (1.3-7.7) k/uL Lymphocytes # 0.5 L (1.0-4.8) k/uL Sodium 134 L (137-145) mmol/L BUN 34 H (9-20) mg/dL Glucose 147 H (74-99) mg/dL POC Glucose (mg/dL) 195 H (75-99) mg/dL Calcium 7.3 L (8.4-10.2) mg/dL 06/29/21 06/29/21 Range/Units 11:57 16:25 Hgb (13.0-17.5) gm/dL Neutrophils # (1.3-7.7) k/uL Lymphocytes # (1.0-4.8) k/uL Sodium (137-145) mmol/L BUN (9-20) mg/dL Glucose (74-99) mg/dL POC Glucose (mg/dL) 163 H 189 H (75-99) mg/dL Calcium (8.4-10.2) mg/dL Microbiology - Last 24 Hours (Table) 06/28/21 01:07 Gram Stain - Preliminary Sputum Sputum Culture - Preliminary Vesna albicans 06/25/21 08:35 Blood Culture - Preliminary Blood No Growth after 96 hours 06/24/21 17:00 Blood Culture - Preliminary Blood No Growth after 96 hours 06/24/21 17:15 Blood Culture - Preliminary Blood No Growth after 96 hours Assessment and Plan Plan: Severe sepsis-present on admission -SIRS criteria: HR>90, RR>20, WBC>12 -Source: Bilateral pneumonia -Endorgan damage: Hypoxia -Slight improvement today. Patient was transitioned from ceftriaxone and azithromycin to vancomycin and Zosyn 2 days ago after there was a significant decline -Cultures negative to date -Mycoplasma IgG positive, IgM negative. This most likely indicates a remote mycoplasma infection as IgM levels dropped significantly before [place] Acute hypoxic respiratory failure - Most likely secondary to aspiration pneumonia, ARDS - Currently on high flow nasal cannula, FiO2 decreased from 60% on 40%. Remains on 15 L flow - On IV Zosyn and vancomycin - Sputum culture is pending. Opioid toxicity - Patient takes morphine at home - His encephalopathy improved with Narcan - Narcan as necessary - Continue supportive care and IV fluids at this time COPD exacerbation -Slight improvement -Solu-Medrol dose decreased -Continue duo nebs - Patient has history of smoking since age 18. MARIALUISA resolved with IV fluids, likely prerenal Toxic metabolic encephalopathy - Improved - Multifactorial: Pneumonia, hypoxia, opiate overdose Elevated troponin, likely type II [place] due to hypoxia/demand ischemia -Cardiology consulted no further cardiac workup recommended. Appreciate input - Echocardiogram reveals preserved ejection fraction, no wall motion abnormalities Time with Patient: Less than 30
--- NOTE | 2021-06-30 14:58 | P.PN ---
Subjective Progress Note Date: 06/30/21 Patient significant improvement last 24 hours. He is down to 4 L of oxygen via nasal cannula down from 15 L high flow. Vital signs of been normal, he has been afebrile. Denies any shortness of breath at rest but is complaining of excessive coughing, no chest pain, no headaches, no abdominal pain, nausea or vomiting. Overall he has been improving daily and will most likely be transferred out of the ICU tomorrow Objective - Vital Signs Vital signs: Vital Signs Temp 98.1 F 06/30/21 08:00 Pulse 79 06/30/21 14:00 Resp 18 06/30/21 14:00 BP 109/63 06/30/21 14:00 Pulse Ox 96 06/30/21 14:00 Intake & Output 06/29/21 06/30/21 06/30/21 18:59 06:59 18:59 Intake Total 920 770 510 Output Total 9563 959 6599 Balance -530 -80 -690 Weight 83 kg Intake: IV 120 290 110 0.9 120 190 110 Piperacillin-Tazobactam 3 100 .375 gm In Sodium Chloride 0.9% 100 ml @ 25 mls/hr IVPB Q8HR [facility] Rx# :[id number] Oral 800 480 400 Output: Urine 2793 723 9986 Other: Voiding Method Urinal Urinal # Voids 1 0 1 # Bowel Movements 1 1 1 - Constitutional General appearance: Present: average body habitus, cooperative, no acute distress. Absent: mild distress - EENT Eyes: Present: EOMI, PERRLA - Neck Neck: Present: normal ROM. Absent: rigidity - Respiratory Respiratory: bilateral: rhonchi, negative: wheezing - Cardiovascular Rhythm: regular Heart sounds: normal: S1, S2 Abnormal Heart Sounds: Absent: systolic murmur, diastolic murmur - Gastrointestinal General gastrointestinal: Present: normal bowel sounds. Absent: hepatomegaly, tenderness - Integumentary Integumentary: Absent: cellulitis, jaundiced, pale - Neurologic Neurologic: Present: CNII-XII intact. Absent: focal deficits - Musculoskeletal Musculoskeletal: Present: strength equal bilaterally - Psychiatric Psychiatric: Present: A&O x's 3, appropriate affect - Labs CBC & Chem 7: 06/30/21 05:47 06/30/21 05:47 Labs: Abnormal Lab Results - Last 24 Hours (Table) 06/29/21 06/29/21 06/30/21 Range/Units 16:25 20:17 05:47 RBC (4.30-5.90) m/uL Hgb (13.0-17.5) gm/dL Hct (39.0-53.0) % Sodium 134 L (137-145) mmol/L BUN 29 H (9-20) mg/dL Glucose 139 H (74-99) mg/dL POC Glucose (mg/dL) 189 H 125 H (75-99) mg/dL Calcium 7.4 L (8.4-10.2) mg/dL 06/30/21 06/30/21 06/30/21 Range/Units 05:47 06:59 11:46 RBC 4.27 L (4.30-5.90) m/uL Hgb 12.8 L (13.0-17.5) gm/dL Hct 38.8 L (39.0-53.0) % Sodium (137-145) mmol/L BUN (9-20) mg/dL Glucose (74-99) mg/dL POC Glucose (mg/dL) 157 H 167 H (75-99) mg/dL Calcium (8.4-10.2) mg/dL Microbiology - Last 24 Hours (Table) 06/26/21 15:37 Legionella Culture - Preliminary Sputum 06/25/21 08:35 Blood Culture - Preliminary Blood No Growth after 120 hours 06/28/21 01:07 Gram Stain - Final Sputum Sputum Culture - Final Vesna albicans 06/24/21 17:00 Blood Culture - Preliminary Blood No Growth after 120 hours 06/24/21 17:15 Blood Culture - Preliminary Blood No Growth after 120 hours Assessment and Plan Plan: Severe sepsis-present on admission -improving -SIRS criteria: HR>90, RR>20, WBC>12 -Source: Bilateral pneumonia -Endorgan damage: Hypoxia -Day #6 of IV antibiotics -Cultures negative to date -Mycoplasma IgG positive, IgM negative. This most likely indicates a remote mycoplasma infection as IgM levels dropped significantly before [place] Acute hypoxic respiratory failure -improving. currently on 4L NC down from 15L highflow yesterday Most likely secondary to aspiration pneumonia, ARDS - On IV Zosyn and vancomycin -continue trial of IV lasix - Sputum culture is pending. Opioid toxicity - Patient takes morphine at home - His encephalopathy improved with Narcan - Narcan as necessary - Continue supportive care and IV fluids at this time COPD exacerbation -improving -Solu-Medrol dose decreased -Continue duo nebs - Patient has history of smoking since age 18. MARIALU[place] resolved with IV fluids, likely prerenal Toxic metabolic encephalopathy - Improved - Multifactorial: Pneumonia, hypoxia, opiate overdose Elevated troponin, likely type II [place] due to hypoxia/demand ischemia -Cardiology consulted no further cardiac workup recommended. Appreciate input - Echocardiogram reveals preserved ejection fraction, no wall motion abnormalities Patient has improved significantly last week for hours. He'll be transferred out of the ICU tomorrow, possibly home in 2 days Time with Patient: Greater than 30
[2021-06-30 16:28] LABS: Glucose,Whole Blood 163 mg/dL (75-99)
--- NOTE | 2021-06-30 17:23 | P.PN ---
Subjective Progress Note Date: 06/30/21 Principal diagnosis: Pneumonia Patient is a 66-year-old male presented to hospital for evaluation of increasing shortness of breath and confusion in this patient did have a CT angiogram suggestive of bilateral lower lobe extensive pneumonia. Patient has been transferred to the ICU because of worsening hypoxemia On today's evaluation that is 06/29/2021, the patient is afebrile, the patient is breathing comfortably on 4 L nasal cannula, the patient is hemodynamically stable not requiring any pressor support, the patient denies any chest pain, the patient did have a cough but not bringing up any sputum, the patient denies nausea no vomiting no abdominal pain did have mild diarrhea Objective - Vital Signs Vital signs: Vital Signs Temp 98.1 F 06/30/21 08:00 Pulse 90 06/30/21 15:26 Resp 18 06/30/21 14:00 BP 109/63 06/30/21 14:00 Pulse Ox 96 06/30/21 14:00 Intake & Output 06/29/21 06/30/21 06/30/21 18:59 06:59 18:59 Intake Total 920 770 730 Output Total 1594 208 0379 Balance -530 -80 -870 Weight 83 kg Intake: IV 120 290 130 0.9 120 190 130 Piperacillin-Tazobactam 3 100 .375 gm In Sodium Chloride 0.9% 100 ml @ 25 mls/hr IVPB Q8HR [facility] Rx# :[id number] Oral 800 480 600 Output: Urine 9461 447 0369 Other: Voiding Method Urinal Urinal # Voids 1 0 1 # Bowel Movements 1 1 1 - Exam GENERAL DESCRIPTION: Middle-aged male lying in bed in no distress RESPIRATORY SYSTEM: Unlabored breathing , decreased breath sounds at bases HEART: S1 S2 regular rate and rhythm , ABDOMEN: Soft , no tenderness EXTREMITIES: No edema feet - Labs CBC & Chem 7: 06/30/21 05:47 06/30/21 05:47 Labs: Abnormal Lab Results - Last 24 Hours (Table) 06/29/21 06/29/21 06/30/21 Range/Units 16:25 20:17 05:47 RBC (4.30-5.90) m/uL Hgb (13.0-17.5) gm/dL Hct (39.0-53.0) % Sodium 134 L (137-145) mmol/L BUN 29 H (9-20) mg/dL Glucose 139 H (74-99) mg/dL POC Glucose (mg/dL) 189 H 125 H (75-99) mg/dL Calcium 7.4 L (8.4-10.2) mg/dL 06/30/21 06/30/21 06/30/21 Range/Units 05:47 06:59 11:46 RBC 4.27 L (4.30-5.90) m/uL Hgb 12.8 L (13.0-17.5) gm/dL Hct 38.8 L (39.0-53.0) % Sodium (137-145) mmol/L BUN (9-20) mg/dL Glucose (74-99) mg/dL POC Glucose (mg/dL) 157 H 167 H (75-99) mg/dL Calcium (8.4-10.2) mg/dL Microbiology - Last 24 Hours (Table) 06/26/21 15:37 Legionella Culture - Preliminary Sputum 06/25/21 08:35 Blood Culture - Preliminary Blood No Growth after 120 hours 06/28/21 01:07 Gram Stain - Final Sputum Sputum Culture - Final Vesna albicans 06/24/21 17:00 Blood Culture - Preliminary Blood No Growth after 120 hours 06/24/21 17:15 Blood Culture - Preliminary Blood No Growth after 120 hours Assessment and Plan (1) Bilateral pneumonia Current Visit: Yes Status: Acute Code(s): J18.9 - PNEUMONIA, UNSPECIFIED ORGANISM SNOMED Code(s): 929969709 Plan: 1patient presented hospital with increasing shortness of breath weakness did have a cough in this patient did have elevated white count or low-grade fever and evidence of bilateral lower lobe extensive pneumonia possible community- acquired versus aspiration/gram-negative. Patient has been transferred to the ICU because of hypoxemia 2patient did have elevated CRP procalcitonin sputum for Gram stain culture growing Vesna possible colonizer , urine for urine Legionella antigen is negative. 3patient has shown overall clinical improvement clinical improvement and will continue with the Zosyn hopefully finish therapy with oral antibiotics, continue supportive care Time with Patient: Less than 30
[2021-06-30 20:12] LABS: Glucose,Whole Blood 165 mg/dL (75-99)
[2021-06-30] MEDS: TEMAZEPAM 15 MG CAP PO PRN (20:23)
[2021-06-30] MEDS: MELATONIN 3 MG TABLET PO SCH (22:59)
[2021-07-01] MEDS: MORPHINE SULFATE ER 30 MG TABLET PO SCH ×3 (00:14→17:17)
[2021-07-01] MEDS: HEPARIN SODIUM,PORCINE/PF 5,000 UNIT/0.5 ML SYRINGE SQ SCH ×3 (00:14→17:18)
[2021-07-01] MEDS: methylPREDNISolone SOD SUCCI 40 MG/ML 1 ML VIAL IV SCH ×3 (00:15→17:18)
[2021-07-01] MEDS: PIPERACILLIN-TAZOBACTAM 3.375 GM in SODIUM CHLORIDE 0.9% 100 ML IVPB SCH ×3 (00:15→17:42)
[2021-07-01 06:31] LABS: Basophils % (A) 0 %; Eosinophils % (A) 0 %; HCT 41.7 % (39.0-53.0); HGB 13.1 gm/dL (13.0-17.5); Lymphocytes # (A) 0.3 k/uL (1.0-4.8); Lymphocytes % (A) 4 %; MCH 29.7 pg (25.0-35.0); MCHC 31.4 g/dL (31.0-37.0); MCV 94.5 fL (80.0-100.0); Monocytes # (A) 0.3 k/uL (0-1.0); Monocytes % (A) 3 %; Neutrophils # (A) 8.1 k/uL (1.3-7.7); Neutrophils % (A) 92 %; Platelet Count 278 k/uL (150-450); RBC 4.41 m/uL (4.30-5.90); RDW 14.5 % (11.5-15.5); WBC 8.8 k/uL (3.8-10.6)
[2021-07-01 06:38] LABS: African American GFR (CKD) >90 (>60 ml/min/1.73 sqM); Anion Gap 4 mmol/L; Blood Urea Nitrogen 23 mg/dL (9-20); Calcium 7.6 mg/dL (8.4-10.2); Carbon Dioxide 29 mmol/L (22-30); Chloride 100 mmol/L (98-107); Glucose 126 mg/dL (74-99); Non-African American GFR(CKD) >90 (>60 ml/min/1.73 sqM); Potassium 4.1 mmol/L (3.5-5.1); Sodium 133 mmol/L (137-145)
[2021-07-01 06:43] LABS: Glucose,Whole Blood 126 mg/dL (75-99)
--- NOTE | 2021-07-01 07:09 | XR ---
EXAMINATION TYPE: XR chest 1V portable DATE OF EXAM: 07/01/2021 HISTORY: Shortness of breath. COMPARISON: 06/30/2021 TECHNIQUE: Single view of the chest is submitted. FINDINGS: Demonstrated are scattered senescent parenchymal change. Persistent reticulonodular infiltrates throughout the perihilar and basilar regions with tiny effusio ns suggested. Improving aeration left lower lobe. The heart is stable. Hilar and mediastinal structures are within normal limits. Degenerative changes are seen of the dorsal spine. IMPRESSION: 1. Persistent reticulonodular infiltrates throughout the perihilar and basilar regions with tiny eff usions suggested. Improving aeration left lower lobe.
[2021-07-01] MEDS: INSULIN ASPART (NovoLOG) 100 UNIT/ML VIAL SQ SCH ×4 (07:53→21:26)
[2021-07-01] MEDS: BUDESONIDE 1 MG/2 ML NEBU INHALATION SCH (07:55)
[2021-07-01] MEDS: IPRATROPIUM-ALBUTEROL 3 ML NEB INHALATION SCH ×4 (07:55→19:02)
[2021-07-01] MEDS: NICOTINE 21MG/24HR PATCH TRANSDERM SCH (08:00)
--- NOTE | 2021-07-01 10:44 | P.PN ---
Subjective Progress Note Date: 07/01/21 Principal diagnosis: Acute hypoxic respiratory failure secondary to aspiration pneumonia On 07/01/2021 patient seen in follow-up in the intensive care unit, he is awake and alert, in no Distress, he sitting up in the chair, breathing quite comfortably, he states his cough is better, and so is his breathing, on 4 L of oxygen his pulse ox is 92-94%, afebrile, hemodynamically has been stable, in sinus mechanism with a controlled rate. Remains on Zosyn for empiric antibiotic coverage, his sputum cultures were positive for Vesna albicans, Legionella culture from the sputum has shown no Legionella isolated to date. Legionella urine antigen has not been collected yet. Blood cultures have been negative. ID service is following, he remains on IV Solu-Medrol 40 mg every 8 hours, remains on breathing treatments. He has also received some intermittent doses of diuretics. Today's chest x-ray showing persistent reticular nodular infiltrates throughout the perihilar and basilar regions with tiny effusions. There is improving aeration of the left lower lobe. Objective - Vital Signs Vital signs: Vital Signs Temp 98 F 07/01/21 08:00 Pulse 101 H 07/01/21 10:00 Resp 13 07/01/21 10:00 BP 115/63 07/01/21 10:00 Pulse Ox 94 L 07/01/21 10:00 Intake & Output 06/30/21 07/01/21 07/01/21 18:59 06:59 18:59 Intake Total 950 725 210 Output Total 1800 1200 0 Balance -850 -475 210 Weight 85.5 kg Intake: IV 150 245 10 0.9 150 120 10 Piperacillin-Tazobactam 3 125 .375 gm In Sodium Chloride 0.9% 100 ml @ 25 mls/hr IVPB Q8HR [facility] Rx# :[id number] Oral 800 480 200 Output: Urine 1800 1200 0 Other: Voiding Method Urinal Urinal Urinal # Voids 1 0 1 # Bowel Movements 1 1 - Exam GENERAL EXAM: Alert, pleasant, 66-year-old white male, on 4 L of oxygen breathing comfortably, sitting up in a recliner, pulse ox is 92-94% comfortable in no apparent distress. HEAD: Normocephalic/atraumatic. EYES: Normal reaction of pupils, equal size. Conjunctiva pink, sclera white. NOSE: Clear with pink turbinates. THROAT: No erythema or exudates. NECK: No masses, no JVD, no thyroid enlargement, no adenopathy. CHEST: No chest wall deformity. Symmetrical expansion. LUNGS: Equal air entry with no crackles, wheeze, rhonchi or dullness. CVS: Regular rate and rhythm, normal S1 and S2, no gallops, no murmurs, no rubs ABDOMEN: Soft, nontender. No hepatosplenomegaly, normal bowel sounds, no guarding or rigidity. EXTREMITIES: No clubbing, no edema, no cyanosis, 2+ pulses and upper and lower extremities. MUSCULOSKELETAL: Muscle strength and tone normal. SPINE: No scoliosis or deformity SKIN: No rashes CENTRAL NERVOUS SYSTEM: Alert and oriented -3. No focal deficits, tone is normal in all 4 extremities. PSYCHIATRIC: Alert and oriented -3. Appropriate affect. Intact judgment and insight. - Labs CBC & Chem 7: 07/01/21 05:50 07/01/21 05:50 Labs: Abnormal Lab Results - Last 24 Hours (Table) 06/30/21 06/30/21 06/30/21 Range/Units 11:46 16:26 20:10 Neutrophils # (1.3-7.7) k/uL Lymphocytes # (1.0-4.8) k/uL Sodium (137-145) mmol/L BUN (9-20) mg/dL Glucose (74-99) mg/dL POC Glucose (mg/dL) 167 H 163 H 165 H (75-99) mg/dL Calcium (8.4-10.2) mg/dL 07/01/21 07/01/21 07/01/21 Range/Units 05:50 05:50 06:42 Neutrophils # 8.1 H (1.3-7.7) k/uL Lymphocytes # 0.3 L (1.0-4.8) k/uL Sodium 133 L (137-145) mmol/L BUN 23 H (9-20) mg/dL Glucose 126 H (74-99) mg/dL POC Glucose (mg/dL) 126 H (75-99) mg/dL Calcium 7.6 L (8.4-10.2) mg/dL Microbiology - Last 24 Hours (Table) 06/24/21 17:15 Blood Culture - Final Blood No Growth after 144 hours 06/24/21 17:00 Blood Culture - Final Blood No Growth after 144 hours 06/26/21 15:37 Legionella Culture - Preliminary Sputum 06/25/21 08:35 Blood Culture - Preliminary Blood No Growth after 120 hours 06/28/21 01:07 Gram Stain - Final Sputum Sputum Culture - Final Vesna albicans Assessment and Plan Plan: Assessment: #1. Acute hypoxic respiratory failure secondary to suspected aspiration pneumonia #2. ARDS secondary to pneumonia #3. Altered mental status, decreased responsiveness, suspected opiate overdose, with response to Narcan out in the field during initial presentation #4. History of chronic neck and back pain #5. Status post prior spinal fusion #6. Depression #7. Osteoarthritis #8. Acute kidney injury improved with IV hydration Plan: Continue current medical treatment Continue weaning FiO2 Patient continues on Zosyn So far all cultures remain negative Legionella urine antigen has been ordered Chest x-ray findings show improvement Clinically patient is improving as well FiO2 needs are significantly improved Increase activity as tolerated Stable to transfer out of intensive care unit to medical surgical floor I have personally seen and examined the patient, performed the documentation and the assessment and plan as written. Number of minutes spent on the visit: [10] Time with Patient: Less than 30
[2021-07-01 12:18] LABS: Glucose,Whole Blood 195 mg/dL (75-99)
--- NOTE | 2021-07-01 13:24 | P.PN ---
Subjective Patient was examined at bedside today not complaining of any new symptomatology. He is being transferred out of the intensive care unit. Currently he is using 4 L nasal cannula without any significant respiratory distress noted. Objective - Vital Signs Vital signs: Vital Signs Temp 98 F 07/01/21 08:00 Pulse 87 07/01/21 12:11 Resp 20 07/01/21 12:11 BP 112/62 07/01/21 12:11 Pulse Ox 95 07/01/21 12:11 Intake & Output 06/30/21 07/01/21 07/01/21 18:59 06:59 18:59 Intake Total 950 725 210 Output Total 1800 1200 0 Balance -850 -475 210 Weight 85.5 kg Intake: IV 150 245 10 0.9 150 120 10 Piperacillin-Tazobactam 3 125 .375 gm In Sodium Chloride 0.9% 100 ml @ 25 mls/hr IVPB Q8HR [facility] Rx# :[id number] Oral 800 480 200 Output: Urine 1800 1200 0 Other: Voiding Method Urinal Urinal Urinal # Voids 1 0 1 # Bowel Movements 1 1 - Exam - Constitutional General appearance: Present: average body habitus, cooperative, no acute distress. - EENT Eyes: Present: EOMI, PERRLA - Neck Neck: Present: normal ROM. Absent: rigidity - Respiratory Respiratory: bilateral: rhonchi, negative: wheezing currently on 4 L nasal cannula. - Cardiovascular Rhythm: regular Heart sounds: normal: S1, S2 Abnormal Heart Sounds: Absent: systolic murmur, diastolic murmur - Gastrointestinal General gastrointestinal: Present: normal bowel sounds. Absent: hepatomegaly, tenderness - Integumentary Integumentary: Absent: cellulitis, jaundiced, pale - Neurologic Neurologic: Present: CNII-XII intact. Absent: focal deficits - Musculoskeletal Musculoskeletal: Present: strength equal bilaterally - Psychiatric Psychiatric: Present: A&O x's 3, appropriate affect - Labs CBC & Chem 7: 07/01/21 05:50 07/01/21 05:50 Labs: Abnormal Lab Results - Last 24 Hours (Table) 06/30/21 06/30/21 07/01/21 Range/Units 16:26 20:10 05:50 Neutrophils # 8.1 H (1.3-7.7) k/uL Lymphocytes # 0.3 L (1.0-4.8) k/uL Sodium (137-145) mmol/L BUN (9-20) mg/dL Glucose (74-99) mg/dL POC Glucose (mg/dL) 163 H 165 H (75-99) mg/dL Calcium (8.4-10.2) mg/dL 07/01/21 07/01/21 07/01/21 Range/Units 05:50 06:42 12:08 Neutrophils # (1.3-7.7) k/uL Lymphocytes # (1.0-4.8) k/uL Sodium 133 L (137-145) mmol/L BUN 23 H (9-20) mg/dL Glucose 126 H (74-99) mg/dL POC Glucose (mg/dL) 126 H 195 H (75-99) mg/dL Calcium 7.6 L (8.4-10.2) mg/dL Microbiology - Last 24 Hours (Table) 06/25/21 08:35 Blood Culture - Final Blood No Growth after 144 hours 06/24/21 17:15 Blood Culture - Final Blood No Growth after 144 hours 06/24/21 17:00 Blood Culture - Final Blood No Growth after 144 hours 06/26/21 15:37 Legionella Culture - Preliminary Sputum Assessment and Plan Assessment: Assessment/plan: Severe sepsis-present on admission -Source: Bilateral pneumonia -Continue with empiric coverage with IV Zosyn -Cultures negative to date Acute hypoxic respiratory failure -improving. currently on 4L NC maintain saturations above 90% -continue trial of IV lasix -Microbiology reviewed sputum stain/culture showing Vesna albicans most likely colonizer Opioid toxicity - Patient takes morphine at home - His encephalopathy improved with Narcan - Narcan as necessary - Continue supportive care and IV fluids at this time COPD exacerbation -Continue with IV methylprednisolone -Continue duo nebs -Patient has history of smoking since age 18. Toxic metabolic encephalopathy - Improved - Multifactorial: Pneumonia, hypoxia, opiate overdose Elevated troponin, likely type II [place] due to hypoxia/demand ischemia -Cardiology consulted no further cardiac workup recommended. Appreciate input -Echocardiogram reveals preserved ejection fraction, no wall motion abnormalities Patient being transferred out of the ICU unit.
[2021-07-01 13:47] VITALS: BMI 27.0
[2021-07-01 17:05] LABS: Glucose,Whole Blood 133 mg/dL (75-99)
[2021-07-01 20:15] LABS: Glucose,Whole Blood 216 mg/dL (75-99)
--- NOTE | 2021-07-01 21:17 | P.PN ---
Subjective Progress Note Date: 07/01/21 Principal diagnosis: Pneumonia Patient is a 66-year-old male presented to hospital for evaluation of increasing shortness of breath and confusion in this patient did have a CT angiogram suggestive of bilateral lower lobe extensive pneumonia. Patient has been transferred to the ICU because of worsening hypoxemia On today's evaluation that is 07/01/2021, the patient remains to be afebrile, the patient is breathing comfortably on nasal cannula oxygen, the patient denies any chest pain, the patient did have a cough but not bringing up any sputum, the patient denies nausea no vomiting no abdominal pain did have mild diarrhea Objective - Vital Signs Vital signs: Vital Signs Temp 98 F 07/01/21 08:00 Pulse 87 07/01/21 12:11 Resp 20 07/01/21 12:11 BP 112/62 07/01/21 12:11 Pulse Ox 95 07/01/21 12:11 Intake & Output 06/30/21 07/01/21 07/01/21 18:59 06:59 18:59 Intake Total 950 725 210 Output Total 1800 1200 0 Balance -850 -475 210 Weight 85.5 kg Intake: IV 150 245 10 0.9 150 120 10 Piperacillin-Tazobactam 3 125 .375 gm In Sodium Chloride 0.9% 100 ml @ 25 mls/hr IVPB Q8HR [facility] Rx# :[id number] Oral 800 480 200 Output: Urine 1800 1200 0 Other: Voiding Method Urinal Urinal Urinal # Voids 1 0 1 # Bowel Movements 1 1 - Exam GENERAL DESCRIPTION: Middle-aged male lying in bed in no distress RESPIRATORY SYSTEM: Unlabored breathing , decreased breath sounds at bases HEART: S1 S2 regular rate and rhythm , ABDOMEN: Soft , no tenderness EXTREMITIES: No edema feet - Labs CBC & Chem 7: 07/01/21 05:50 07/01/21 05:50 Labs: Abnormal Lab Results - Last 24 Hours (Table) 06/30/21 06/30/21 07/01/21 Range/Units 16:26 20:10 05:50 Neutrophils # 8.1 H (1.3-7.7) k/uL Lymphocytes # 0.3 L (1.0-4.8) k/uL Sodium (137-145) mmol/L BUN (9-20) mg/dL Glucose (74-99) mg/dL POC Glucose (mg/dL) 163 H 165 H (75-99) mg/dL Calcium (8.4-10.2) mg/dL 07/01/21 07/01/21 07/01/21 Range/Units 05:50 06:42 12:08 Neutrophils # (1.3-7.7) k/uL Lymphocytes # (1.0-4.8) k/uL Sodium 133 L (137-145) mmol/L BUN 23 H (9-20) mg/dL Glucose 126 H (74-99) mg/dL POC Glucose (mg/dL) 126 H 195 H (75-99) mg/dL Calcium 7.6 L (8.4-10.2) mg/dL Microbiology - Last 24 Hours (Table) 06/25/21 08:35 Blood Culture - Final Blood No Growth after 144 hours 06/24/21 17:15 Blood Culture - Final Blood No Growth after 144 hours 06/24/21 17:00 Blood Culture - Final Blood No Growth after 144 hours 06/26/21 15:37 Legionella Culture - Preliminary Sputum 06/28/21 01:07 Gram Stain - Final Sputum Sputum Culture - Final Vesna albicans Assessment and Plan (1) Bilateral pneumonia Current Visit: Yes Status: Acute Code(s): J18.9 - PNEUMONIA, UNSPECIFIED ORGANISM SNOMED Code(s): 334949702 Plan: 1patient presented hospital with increasing shortness of breath weakness did have a cough in this patient did have elevated white count or low-grade fever and evidence of bilateral lower lobe extensive pneumonia possible community- acquired versus aspiration/gram-negative. Patient has been transferred to the ICU because of hypoxemia 2patient did have elevated CRP procalcitonin sputum for Gram stain culture growing Vesna possible colonizer , urine for urine Legionella antigen is negative. 3patient seemed to have slow clinical improvement, patient will continue with the Zosyn with a plan to finish therapy with oral Avelox Time with Patient: Less than 30
[2021-07-01] MEDS: MELATONIN 3 MG TABLET PO SCH (21:26)
[2021-07-02] MEDS: PIPERACILLIN-TAZOBACTAM 3.375 GM in SODIUM CHLORIDE 0.9% 100 ML IVPB SCH ×2 (00:32→07:21)
[2021-07-02] MEDS: MORPHINE SULFATE ER 30 MG TABLET PO SCH ×3 (00:33→16:03)
[2021-07-02] MEDS: methylPREDNISolone SOD SUCCI 40 MG/ML 1 ML VIAL IV SCH ×4 (00:33→22:11)
[2021-07-02] MEDS: HEPARIN SODIUM,PORCINE/PF 5,000 UNIT/0.5 ML SYRINGE SQ SCH ×3 (00:34→16:04)
[2021-07-02] MEDS: TEMAZEPAM 15 MG CAP PO PRN ×2 (02:30→22:11)
[2021-07-02 07:00] LABS: Glucose,Whole Blood 87 mg/dL (75-99)
[2021-07-02] MEDS: NICOTINE 21MG/24HR PATCH TRANSDERM SCH ×2 (07:20→16:48)
[2021-07-02] MEDS: INSULIN ASPART (NovoLOG) 100 UNIT/ML VIAL SQ SCH ×4 (07:31→20:48)
[2021-07-02] MEDS: IPRATROPIUM-ALBUTEROL 3 ML NEB INHALATION SCH ×4 (09:09→20:13)
[2021-07-02 09:44] LABS: Basophils % (A) 0 %; Eosinophils % (A) 0 %; HCT 39.1 % (39.0-53.0); HGB 12.7 gm/dL (13.0-17.5); Lymphocytes # (A) 0.4 k/uL (1.0-4.8); Lymphocytes % (A) 3 %; MCH 29.8 pg (25.0-35.0); MCHC 32.4 g/dL (31.0-37.0); MCV 91.9 fL (80.0-100.0); Mean Platelet Volume 7.8; Monocytes # (A) 0.4 k/uL (0-1.0); Monocytes % (A) 3 %; Neutrophils # (A) 13.4 k/uL (1.3-7.7); Neutrophils % (A) 94 %; Platelet Count 300 k/uL (150-450); RBC 4.25 m/uL (4.30-5.90); RDW 14.5 % (11.5-15.5); WBC 14.2 k/uL (3.8-10.6)
[2021-07-02 09:51] LABS: African American GFR (CKD) >90 (>60 ml/min/1.73 sqM); Anion Gap 0 mmol/L; Blood Urea Nitrogen 22 mg/dL (9-20); Calcium 7.7 mg/dL (8.4-10.2); Carbon Dioxide 30 mmol/L (22-30); Chloride 102 mmol/L (98-107); Glucose 136 mg/dL (74-99); Non-African American GFR(CKD) >90 (>60 ml/min/1.73 sqM); Potassium 4.2 mmol/L (3.5-5.1); Sodium 132 mmol/L (137-145)
[2021-07-02] MEDS: AMOXIC-POT CLAV 875-125MG 1 EACH TAB PO SCH ×2 (10:09→20:48)
--- NOTE | 2021-07-02 10:46 | P.PN ---
Subjective Progress Note Date: 07/02/21 Principal diagnosis: Acute hypoxic respiratory failure secondary to aspiration pneumonia On 07/01/2021 patient seen in follow-up in the intensive care unit, he is awake and alert, in no Distress, he sitting up in the chair, breathing quite comfortably, he states his cough is better, and so is his breathing, on 4 L of oxygen his pulse ox is 92-94%, afebrile, hemodynamically has been stable, in sinus mechanism with a controlled rate. Remains on Zosyn for empiric antibiotic coverage, his sputum cultures were positive for Vesna albicans, Legionella culture from the sputum has shown no Legionella isolated to date. Legionella urine antigen has not been collected yet. Blood cultures have been negative. ID service is following, he remains on IV Solu-Medrol 40 mg every 8 hours, remains on breathing treatments. He has also received some intermittent doses of diuretics. Today's chest x-ray showing persistent reticular nodular infiltrates throughout the perihilar and basilar regions with tiny effusions. There is improving aeration of the left lower lobe. On 07/02/2021 patient seen in follow-up on medical surgical floor. He is awake and alert, in no acute distress, breathing comfortably, is currently down to 3 L of oxygen pulse ox is 97%, no worsening dyspnea or cough, no chest discomfort, remains on IV Zosyn for possibility of aspiration related pneumonia, yesterday's chest x-ray showing persistent reticular nodular infiltrates throughout the. Hilar and basilar regions with tiny effusions, and improving aeration of the left lower lobe. #7 stable overnight, no fever or chills. Hemodynamically stable, no hemoptysis. Sputum for Legionella culture was negative, sputum culture only showed Vesna albicans, blood cultures have been negative. Pro-calcitonin level was negative. Legionella urine antigen was negative. Mycoplasma IgM was within normal limits, IgG was 1.9. COVID-19 PCR test was negative 2. She continues on IV steroids with Solu-Medrol 40 mg every 8 hours, remains on Zosyn which we can convert to oral Augmentin, and breathing mirela tments. Objective - Vital Signs Vital signs: Vital Signs Temp 98.2 F 07/02/21 06:57 Pulse 72 07/02/21 09:19 Resp 16 07/02/21 06:57 BP 115/60 07/02/21 06:57 Pulse Ox 97 07/02/21 03:45 Intake & Output 07/01/21 07/02/21 07/02/21 18:59 06:59 18:59 Intake Total 1210 Output Total 0 Balance 1210 Weight 85.5 kg Intake: IV 10 0.9 10 Oral 1200 Output: Urine 0 Other: Voiding Method Urinal # Voids 2 4 # Bowel Movements 1 - Exam GENERAL EXAM: Alert, pleasant, 66-year-old white male, on 4 L of oxygen breathing comfortably, sitting up in a recliner, pulse ox is 92-94% comfortable in no apparent distress. HEAD: Normocephalic/atraumatic. EYES: Normal reaction of pupils, equal size. Conjunctiva pink, sclera white. NOSE: Clear with pink turbinates. THROAT: No erythema or exudates. NECK: No masses, no JVD, no thyroid enlargement, no adenopathy. CHEST: No chest wall deformity. Symmetrical expansion. LUNGS: Equal air entry with no crackles, wheeze, rhonchi or dullness. CVS: Regular rate and rhythm, normal S1 and S2, no gallops, no murmurs, no rubs ABDOMEN: Soft, nontender. No hepatosplenomegaly, normal bowel sounds, no guarding or rigidity. EXTREMITIES: No clubbing, no edema, no cyanosis, 2+ pulses and upper and lower extremities. MUSCULOSKELETAL: Muscle strength and tone normal. SPINE: No scoliosis or deformity SKIN: No rashes CENTRAL NERVOUS SYSTEM: Alert and oriented -3. No focal deficits, tone is normal in all 4 extremities. PSYCHIATRIC: Alert and oriented -3. Appropriate affect. Intact judgment and insight. - Labs CBC & Chem 7: 07/02/21 09:09 07/02/21 09:09 Labs: Abnormal Lab Results - Last 24 Hours (Table) 07/01/21 07/01/21 07/01/21 Range/Units 12:08 16:55 20:11 WBC (3.8-10.6) k/uL RBC (4.30-5.90) m/uL Hgb (13.0-17.5) gm/dL Neutrophils # (1.3-7.7) k/uL Lymphocytes # (1.0-4.8) k/uL Sodium (137-145) mmol/L BUN (9-20) mg/dL Glucose (74-99) mg/dL POC Glucose (mg/dL) 195 H 133 H 216 H (75-99) mg/dL Calcium (8.4-10.2) mg/dL 07/02/21 07/02/21 Range/Units 09:09 09:09 WBC 14.2 H (3.8-10.6) k/uL RBC 4.25 L (4.30-5.90) m/uL Hgb 12.7 L (13.0-17.5) gm/dL Neutrophils # 13.4 H (1.3-7.7) k/uL Lymphocytes # 0.4 L (1.0-4.8) k/uL Sodium 132 L (137-145) mmol/L BUN 22 H (9-20) mg/dL Glucose 136 H (74-99) mg/dL POC Glucose (mg/dL) (75-99) mg/dL Calcium 7.7 L (8.4-10.2) mg/dL Microbiology - Last 24 Hours (Table) 06/25/21 08:35 Blood Culture - Final Blood No Growth after 144 hours Assessment and Plan Plan: Assessment: #1. Acute hypoxic respiratory failure secondary to suspected aspiration pneumonia, improved, and patient is currently down to 4 L of oxygen pulse ox is 97%. #2. ARDS secondary to pneumonia #3. Altered mental status, decreased responsiveness, suspected opiate overdose, with response to Narcan out in the field during initial presentation. Currently mentation is Dr. christensen, awake and alert and oriented 3, #4. History of chronic neck and back pain #5. Status post prior spinal fusion #6. Depression #7. Osteoarthritis #8. Acute kidney injury improved with IV hydration Plan: Clinically continues to improve Wean FiO2 Obtain home oxygen assessment We'll switch the IV Zosyn to oral Augmentin for 5 more days Continue IV steroids Continue breathing treatments Follow-up chest x-ray tomorrow Follow-up her calcitonin Anticipate discharge home tomorrow if cleared by medicine I have personally seen and examined the patient, performed the documentation and the assessment and plan as written. Number of minutes spent on the visit: [10] Time with Patient: Less than 30
--- NOTE | 2021-07-02 11:14 | P.PN ---
Subjective Patient was examined at bedside today not complaining of any worsening symptomatology he is having some shortness of breath with productive cough ho wever improved since date of admission. He does not use any oxygen at home and is motivated to stop smoking. Education was provided at bedside. Objective - Vital Signs Vital signs: Vital Signs Temp 98.2 F 07/02/21 06:57 Pulse 72 07/02/21 09:19 Resp 16 07/02/21 06:57 BP 115/60 07/02/21 06:57 Pulse Ox 97 07/02/21 03:45 Intake & Output 07/01/21 07/02/21 07/02/21 18:59 06:59 18:59 Intake Total 1210 Output Total 0 Balance 1210 Weight 85.5 kg Intake: IV 10 0.9 10 Oral 1200 Output: Urine 0 Other: Voiding Method Urinal # Voids 2 4 # Bowel Movements 1 - Exam - Constitutional General appearance: Present: average body habitus, cooperative, no acute distres s. - EENT Eyes: Present: EOMI, PERRLA - Neck Neck: Present: normal ROM. Absent: rigidity - Respiratory Respiratory: bilateral: rhonchi, negative: wheezing currently on 3 L nasal ca nnula. - Cardiovascular Rhythm: regular Heart sounds: normal: S1, S2 Abnormal Heart Sounds: Absent: systolic murmur, diastolic murmur - Gastrointestinal General gastrointestinal: Present: normal bowel sounds. Absent: hepatomegaly, tenderness - Integumentary Integumentary: Absent: cellulitis, jaundiced, pale - Neurologic Neurologic: Present: CNII-XII intact. Absent: focal deficits - Musculoskeletal Musculoskeletal: Present: strength equal bilaterally - Psychiatric Psychiatric: Present: A&O x's 3, appropriate affect - Labs CBC & Chem 7: 07/02/21 09:09 07/02/21 09:09 Labs: Abnormal Lab Results - Last 24 Hours (Table) 07/01/21 07/01/21 07/01/21 Range/Units 12:08 16:55 20:11 WBC (3.8-10.6) k/uL RBC (4.30-5.90) m/uL Hgb (13.0-17.5) gm/dL Neutrophils # (1.3-7.7) k/uL Lymphocytes # (1.0-4.8) k/uL Sodium (137-145) mmol/L BUN (9-20) mg/dL Glucose (74-99) mg/dL POC Glucose (mg/dL) 195 H 133 H 216 H (75-99) mg/dL Calcium (8.4-10.2) mg/dL 07/02/21 07/02/21 Range/Units 09:09 09:09 WBC 14.2 H (3.8-10.6) k/uL RBC 4.25 L (4.30-5.90) m/uL Hgb 12.7 L (13.0-17.5) gm/dL Neutrophils # 13.4 H (1.3-7.7) k/uL Lymphocytes # 0.4 L (1.0-4.8) k/uL Sodium 132 L (137-145) mmol/L BUN 22 H (9-20) mg/dL Glucose 136 H (74-99) mg/dL POC Glucose (mg/dL) (75-99) mg/dL Calcium 7.7 L (8.4-10.2) mg/dL Microbiology - Last 24 Hours (Table) 06/25/21 08:35 Blood Culture - Final Blood No Growth after 144 hours Assessment and Plan Assessment: Assessment/plan: Severe sepsis-present on admission -Source: Bilateral pneumonia -Continue with empiric coverage with IV Zosyn switched to Augmentin by pulmonary today. -Cultures negative to date Acute hypoxic respiratory failure -improving. currently on 3L NC maintain saturations above 90% -Microbiology reviewed sputum stain/culture showing Vesna albicans most likely colonizer Opioid toxicity - Patient takes morphine at home - His encephalopathy improved with Narcan - Narcan as necessary - Continue supportive care and IV fluids at this time COPD exacerbation -Continue with IV methylprednisolone 40 twice a day -Continue duo nebs -Patient has history of smoking since age 18. Motivate to quit Toxic metabolic encephalopathy - Improved - Multifactorial: Pneumonia, hypoxia, opiate overdose Elevated troponin, likely type II WI due to hypoxia/demand ischemia -Cardiology consulted no further cardiac workup recommended. Appreciate input -Echocardiogram reveals preserved ejection fraction, no wall motion abnormali ties DVT prophylaxis heparin Disposition despite discharge in the next 24 hours as per pulmonary.
[2021-07-02 11:23] LABS: Glucose,Whole Blood 132 mg/dL (75-99)
[2021-07-02] MEDS: NYSTATIN 100,000 UNIT/ML SUSP 500,000 UNIT/5 ML CUP PO SCH ×3 (14:44→22:11)
[2021-07-02 15:16] VITALS: RESP 17
[2021-07-02 16:51] LABS: Glucose,Whole Blood 122 mg/dL (75-99)
[2021-07-02 20:07] LABS: Glucose,Whole Blood 127 mg/dL (75-99)
[2021-07-02] MEDS: MELATONIN 3 MG TABLET PO SCH (20:48)
--- NOTE | 2021-07-02 21:22 | P.PN ---
Subjective Progress Note Date: 07/02/21 Principal diagnosis: Pneumonia Patient is a 66-year-old male presented to hospital for evaluation of increasing shortness of breath and confusion in this patient did have a CT angiogram suggestive of bilateral lower lobe extensive pneumonia. Patient has been transferred to the ICU because of worsening hypoxemia On today's evaluation that is 07/02/2021, the patient denies any fever or chills, the patient is breathing comfortably on room air, the patient denies any chest pain, the patient cough is decreased intensity mostly dry in nature denies abdominal pain and no diarrhea Objective - Vital Signs Vital signs: Vital Signs Temp 98.2 F 07/02/21 06:57 Pulse 72 07/02/21 09:19 Resp 16 07/02/21 06:57 BP 115/60 07/02/21 06:57 Pulse Ox 94 L 07/02/21 12:50 Intake & Output 07/01/21 07/02/21 07/02/21 18:59 06:59 18:59 Intake Total 1210 Output Total 0 Balance 1210 Weight 85.5 kg Intake: IV 10 0.9 10 Oral 1200 Output: Urine 0 Other: Voiding Method Urinal # Voids 2 4 # Bowel Movements 1 - Exam GENERAL DESCRIPTION: Middle-aged male lying in bed in no distress RESPIRATORY SYSTEM: Unlabored breathing , decreased breath sounds at bases HEART: S1 S2 regular rate and rhythm , ABDOMEN: Soft , no tenderness EXTREMITIES: No edema feet - Labs CBC & Chem 7: 07/02/21 09:09 07/02/21 09:09 Labs: Abnormal Lab Results - Last 24 Hours (Table) 07/01/21 07/01/21 07/02/21 Range/Units 16:55 20:11 09:09 WBC 14.2 H (3.8-10.6) k/uL RBC 4.25 L (4.30-5.90) m/uL Hgb 12.7 L (13.0-17.5) gm/dL Neutrophils # 13.4 H (1.3-7.7) k/uL Lymphocytes # 0.4 L (1.0-4.8) k/uL Sodium (137-145) mmol/L BUN (9-20) mg/dL Glucose (74-99) mg/dL POC Glucose (mg/dL) 133 H 216 H (75-99) mg/dL Calcium (8.4-10.2) mg/dL 07/02/21 07/02/21 Range/Units 09:09 11:21 WBC (3.8-10.6) k/uL RBC (4.30-5.90) m/uL Hgb (13.0-17.5) gm/dL Neutrophils # (1.3-7.7) k/uL Lymphocytes # (1.0-4.8) k/uL Sodium 132 L (137-145) mmol/L BUN 22 H (9-20) mg/dL Glucose 136 H (74-99) mg/dL POC Glucose (mg/dL) 132 H (75-99) mg/dL Calcium 7.7 L (8.4-10.2) mg/dL Microbiology - Last 24 Hours (Table) 06/25/21 08:35 Blood Culture - Final Blood No Growth after 144 hours Assessment and Plan (1) Bilateral pneumonia Current Visit: Yes Status: Acute Code(s): J18.9 - PNEUMONIA, UNSPECIFIED ORGANISM SNOMED Code(s): 160032589 Plan: 1patient presented hospital with increasing shortness of breath weakness did have a cough in this patient did have elevated white count or low-grade fever and evidence of bilateral lower lobe extensive pneumonia possible community- acquired versus aspiration/gram-negative. Patient has been transferred to the ICU because of hypoxemia 2patient did have elevated CRP procalcitonin sputum for Gram stain culture growing Vesna possible colonizer , urine for urine Legionella antigen is negative. 3patient has shown overall clinical improvement, patient will continue with the Zosyn while inpatient and will finish therapy with oral Avelox Time with Patient: Less than 30
[2021-07-03] MEDS: MORPHINE SULFATE ER 30 MG TABLET PO SCH ×2 (00:04→07:29)
[2021-07-03] MEDS: HEPARIN SODIUM,PORCINE/PF 5,000 UNIT/0.5 ML SYRINGE SQ SCH ×2 (00:07→07:31)
[2021-07-03 06:43] LABS: Glucose,Whole Blood 90 mg/dL (75-99)
[2021-07-03] MEDS: INSULIN ASPART (NovoLOG) 100 UNIT/ML VIAL SQ SCH ×2 (06:55→11:30)
[2021-07-03 07:06] VITALS: BP 128/72; TEMP 98.1
[2021-07-03] MEDS: NICOTINE 21MG/24HR PATCH TRANSDERM SCH (07:29)
--- NOTE | 2021-07-03 07:29 | XR ---
EXAMINATION TYPE: XR chest 2V DATE OF EXAM: 07/03/2021 COMPARISON: 07/01/2021 HISTORY: Shortness of breath TECHNIQUE: Frontal and lateral views of the chest are obtained. FINDINGS: Scattered senescent parenchymal changes noted. Hyperinflation compatible with COPD. Resolution of perihilar and basilar infiltrates. Persistent left pleural effusion. Heart size is stable. Mediastinal structures are stable and grossly unremarkable. No evidence for hilar prominence. Degenerative changes dorsal spine. IMPRESSION: 1. Resolution of perihilar and basilar infiltrates. Persistent left pleural effusion.
[2021-07-03] MEDS: AMOXIC-POT CLAV 875-125MG 1 EACH TAB PO SCH (07:30)
[2021-07-03] MEDS: NYSTATIN 100,000 UNIT/ML SUSP 500,000 UNIT/5 ML CUP PO SCH ×2 (07:30→12:30)
[2021-07-03] MEDS: IPRATROPIUM-ALBUTEROL 3 ML NEB INHALATION SCH ×2 (08:42→12:21)
[2021-07-03 08:52] VITALS: PULSE 76
[2021-07-03 09:12] LABS: Basophils # (A) 0.04 X 10*3/uL (0.00-0.10); Basophils % (A) 0.2 %; Eosinophils # (A) 0.01 X 10*3/uL (0.04-0.35); Eosinophils % (A) 0.1 %; HCT 38.6 % (39.6-50.0); HGB 12.4 g/dL (13.0-17.0); Immature Grans, Automated 2.7 %; Lymphocytes # (A) 1.04 X 10*3/uL (0.90-5.00); Lymphocytes % (A) 6.5 %; MCH 28.6 pg (27.0-32.0); MCHC 32.1 g/dL (32.0-37.0); MCV 89.1 fL (80.0-97.0); Mean Platelet Volume 10.2 fL (9.5-12.2); Monocytes # (A) 0.78 X 10*3/uL (0.20-1.00); Monocytes % (A) 4.9 %; NRBC Per 100 WBC 0 /100 WBCS (0.0-0.0); Neutrophils # (A) 13.77 X 10*3/uL (1.80-7.70); Neutrophils % (A) 85.6 %; Platelet Count 353 X 10*3/uL (140-440); RBC 4.33 X 10*6/uL (4.40-5.60); RDW 15.2 % (11.5-14.5); WBC 16.07 X 10*3/uL (4.50-10.00)
[2021-07-03 10:05] LABS: African American GFR (CKD) 103.1 (60.0-200.0); Anion Gap 12.9 mmol/L (10.00-18.00); BUN/Creat Ratio 21.92 Ratio (12.00-20.00); Blood Urea Nitrogen 19.9 mg/dL (9.0-27.0); Calcium 8.6 mg/dL (8.7-10.3); Carbon Dioxide 23.9 mmol/L (20.0-27.5); Potassium 4.9 mmol/L (3.5-5.5)
--- NOTE | 2021-07-03 10:30 | P.PN ---
Subjective Progress Note Date: 07/03/21 Principal diagnosis: Acute hypoxic respiratory failure secondary to aspiration pneumonia On 07/01/2021 patient seen in follow-up in the intensive care unit, he is awake and alert, in no Distress, he sitting up in the chair, breathing quite comfortably, he states his cough is better, and so is his breathing, on 4 L of oxygen his pulse ox is 92-94%, afebrile, hemodynamically has been stable, in sinus mechanism with a controlled rate. Remains on Zosyn for empiric antibiotic coverage, his sputum cultures were positive for Vesna albicans, Legionella culture from the sputum has shown no Legionella isolated to date. Legionella urine antigen has not been collected yet. Blood cultures have been negative. ID service is following, he remains on IV Solu-Medrol 40 mg every 8 hours, remains on breathing treatments. He has also received some intermittent doses of diuretics. Today's chest x-ray showing persistent reticular nodular infiltrates throughout the perihilar and basilar regions with tiny effusions. There is improving aeration of the left lower lobe. On 07/02/2021 patient seen in follow-up on medical surgical floor. He is awake and alert, in no acute distress, breathing comfortably, is currently down to 3 L of oxygen pulse ox is 97%, no worsening dyspnea or cough, no chest discomfort, remains on IV Zosyn for possibility of aspiration related pneumonia, yesterday's chest x-ray showing persistent reticular nodular infiltrates throughout the. Hilar and basilar regions with tiny effusions, and improving aeration of the left lower lobe. #7 stable overnight, no fever or chills. Hemodynamically stable, no hemoptysis. Sputum for Legionella culture was negative, sputum culture only showed Vesna albicans, blood cultures have been negative. Pro-calcitonin level was negative. Legionella urine antigen was negative. Mycoplasma IgM was within normal limits, IgG was 1.9. COVID-19 PCR test was negative 2. She continues on IV steroids with Solu-Medrol 40 mg every 8 hours, remains on Zosyn which we can convert to oral Augmentin, and breathing mirela tments. On 07/03/2021 patient seen in follow-up on medical surgical floor, he is up walking around in the room, he states he is breathing very comfortably, no cough, no chest pain, lung sounds still reveal some scattered rhonchi especially at bilateral bases, patient still coughs at times, bringing up clear sputum. Today's chest x-ray has been reviewed showing resolution of perihilar and basilar infiltrate, persistent left pleural effusion. No fever or chills. We switched his Zosyn to Augmentin. Clinically stable, pulse ox on room air is 94- 95%, no fever or chills. No specific growth on cultures, Legionella urine antigen was negative, Legionella sputum culture was negative, blood cultures have been negative, Vesna albicans in the sputum. Today's labs have been reviewed White blood cell count 16.07, hemoglobin is 12.4, electrolytes and renal profile were unremarkable. Follow pro-calcitonin was 0.15 on yesterday's labs, down from 3.12 on admission. Objective - Vital Signs Vital signs: Vital Signs Temp 98.1 F 07/03/21 07:04 Pulse 76 07/03/21 08:51 Resp 17 07/03/21 07:04 BP 128/72 07/03/21 07:04 Pulse Ox 94 L 07/03/21 07:04 Intake & Output 07/02/21 07/03/21 07/03/21 18:59 06:59 18:59 Other: # Voids 3 2 - Exam GENERAL EXAM: Alert, pleasant, 66-year-old white male, on room air L of oxygen breathing comfortably, ambulating in the room pulse ox is 95% comfortable in no apparent distress. HEAD: Normocephalic/atraumatic. EYES: Normal reaction of pupils, equal size. Conjunctiva pink, sclera white. NOSE: Clear with pink turbinates. THROAT: No erythema or exudates. NECK: No masses, no JVD, no thyroid enlargement, no adenopathy. CHEST: No chest wall deformity. Symmetrical expansion. LUNGS: Equal air entry with no crackles, wheeze, rhonchi or dullness. CVS: Regular rate and rhythm, normal S1 and S2, no gallops, no murmurs, no rubs ABDOMEN: Soft, nontender. No hepatosplenomegaly, normal bowel sounds, no guarding or rigidity. EXTREMITIES: No clubbing, no edema, no cyanosis, 2+ pulses and upper and lower extremities. MUSCULOSKELETAL: Muscle strength and tone normal. SPINE: No scoliosis or deformity SKIN: No rashes CENTRAL NERVOUS SYSTEM: Alert and oriented -3. No focal deficits, tone is normal in all 4 extremities. PSYCHIATRIC: Alert and oriented -3. Appropriate affect. Intact judgment and insight. - Labs CBC & Chem 7: 07/03/21 05:05 07/03/21 05:05 Labs: Abnormal Lab Results - Last 24 Hours (Table) 07/02/21 07/02/21 07/02/21 Range/Units 09:09 11:21 16:50 WBC (4.50-10.00) X 10*3/uL RBC (4.40-5.60) X 10*6/uL Hgb (13.0-17.0) g/dL Hct (39.6-50.0) % RDW (11.5-14.5) % Immature Gran # (0.00-0.04) X 10*3/uL Neutrophils # (1.80-7.70) X 10*3/uL Eosinophils # (0.04-0.35) X 10*3/uL BUN/Creatinine Ratio (12.00-20.00) Ratio POC Glucose (mg/dL) 132 H 122 H (75-99) mg/dL Calcium (8.7-10.3) mg/dL Procalcitonin 0.15 H (0.02-0.09) ng/mL 07/02/21 07/03/21 07/03/21 Range/Units 20:04 05:05 05:05 WBC 16.07 H (4.50-10.00) X 10*3/uL RBC 4.33 L (4.40-5.60) X 10*6/uL Hgb 12.4 L (13.0-17.0) g/dL Hct 38.6 L (39.6-50.0) % RDW 15.2 H (11.5-14.5) % Immature Gran # 0.43 H (0.00-0.04) X 10*3/uL Neutrophils # 13.77 H (1.80-7.70) X 10*3/uL Eosinophils # 0.01 L (0.04-0.35) X 10*3/uL BUN/Creatinine Ratio 21.92 H (12.00-20.00) Ratio POC Glucose (mg/dL) 127 H (75-99) mg/dL Calcium 8.6 L (8.7-10.3) mg/dL Procalcitonin (0.02-0.09) ng/mL Assessment and Plan Plan: Assessment: #1. Acute hypoxic respiratory failure secondary to suspected aspiration pneumonia, improved, and patient is currently down to room air #2. ARDS secondary to pneumonia #3. Altered mental status, decreased responsiveness, suspected opiate overdose, with response to Narcan out in the field during initial presentation. Currently mentation is at baseline, awake and alert and oriented 3, #4. History of chronic neck and back pain #5. Status post prior spinal fusion #6. Depression #7. Osteoarthritis #8. Acute kidney injury improved with IV hydration Plan: Patient is doing well, breathing comfortably, Currently off supplemental oxygen, maintaining stable O2 saturations above 92% Tolerating ambulation Patient has been transitioned to oral antibiotics May finish course of Augmentin for 4 more days after discharge or antibiotics of ID service's recommendations Follow-up her calcitonin level has significantly improved Has had no fever or chills overnight Chest x-ray shows resolution. Hilar and basilar infiltrate and persistent left pleural effusion Outpatient follow-up with Dr. May in the office in 7-10 days Patient can finish outpatient prednisone taper Stable for discharge today I have personally seen and examined the patient, performed the documentation and the assessment and plan as written. Number of minutes spent on the visit: [10] Time with Patient: Less than 30
--- NOTE | 2021-07-03 11:03 | P.DS ---
Providers Date of admission: 06/24/21 18:49 Attending physician: Mireille Hernandez DO Consults: 06/25/21 05:48 Consult Physician Routine Consulting Provider: Wendy Raymundo Consult Reason/Comments: elevated trops Do you want consulting provider notified?: Yes, Notify in am 06/26/21 09:33 Consult Physician Routine Consulting Provider: Gail Thomas Consult Reason/Comments: Pneumonia Do you want consulting provider notified?: Yes 06/26/21 09:39 Consult Physician Routine Consulting Provider: Isa Mejia Consult Reason/Comments: Per Dr. Arreola, wants ID to see patient for Pneumonia Do you want consulting provider notified?: Yes Primary care physician: Zachary Meek MD Hospital Course: The patient is a 66-year-old male with a PMH o chronic neck and lower back pain who was brought in to the EMS for suspected opiate overdose. History obtained from the chart as the patient was confused at the time of interview. As per the ED physician and the EMS documentation, the patient normally takes 60 mg of morphine orally 3 times a day, and was found by his looking pale and bradypneic. History also supplemented by the via phone ([phone]). She notes that they traveled to [place] last Thursday, and that the patient developed gradual onset fatigue with cough over the past 5 days. She notes that while in [place], the patient was swimming in pools and they visited local attractions and aquariums during the day-time. They returned back to [place] today via plane and upon returning home the patient reportedly was lethargic and eventually became cyanotic, at which time the activated EMS. Upon arrival of EMS, the patient was noted to be cyanotic, with pinpoint pupils and respiratory rate 2-3 breaths per minute. He was given Narcan with immediate improvement in his symptoms including his respiratory rate. The patient is able to state that he does take the morphine multiple times a day but is not able to recall if he took any extra doses today. He is also unable to recall the events of the day. He further reported feeling short of breath at the time of interview as well as nauseous. Denied experiencing chest discomfort, abdominal pain, fever, chills, cough, diarrhea. Denied headaches, weakness, numbness. The patient was hypoxic and tachycardic at presentation to the emergency room with SpO2 88% on room air and pulse 120. Chest CTA revealed extensive bilateral lower lobe pneumonia with bilateral bronchial adenopathy. EKG revealed sinus tachycardia at 109 bpm with no additional abnormality noted. Laboratory evaluation was remarkable for WBC 12.6, BUN 37, creatinine 1.62, troponin 0.071, and proBNP 525. Patient had an extensive hospital course the ICU was transferred out of the ICU on 07/01/2021. Since then he has completed his course of IV antibiotics and has been switched over to Augmentin as per pulmonary team. They've also left a prescription for his antibiotic and prednisone taper. At this time the patient is eager to be discharge she denies any worsening shortness of breath, chest pain or palpitations. He is on room air saturating above 90%. He is asked to follow up with pulmonary and PCP within 1 week of discharge. I did review chest x-ray with pulmonary and they said that it is stable and okay to be discharged. Patient Condition at Discharge: Stable Plan - Discharge Summary Discharge Rx Participant: No New Discharge Prescriptions: New RX: predniSONE 0 mg PO DIRECTED 12 Days #30 tab Amoxicillin/Potassium Clav [Augmentin 875-125 Tablet] 1 tab PO BID 4 Days #8 tab Continue RX: Vilazodone HCl [Viibryd] 40 mg PO HS RX: Loratadine [Claritin] 10 mg PO DAILY PRN PRN Reason: Allergy Symptoms RX: Morphine Sulfate ER [Ms Contin] 60 mg PO TID RX: Ibuprofen [Motrin Ib] 400 mg PO Q8H PRN PRN Reason: Pain Discharge Medication List RX: Ibuprofen [Motrin Ib] 400 mg PO Q8H PRN 06/24/21 [History] RX: Loratadine [Claritin] 10 mg PO DAILY PRN 06/24/21 [History] RX: Morphine Sulfate ER [Ms Contin] 60 mg PO TID 06/24/21 [History] RX: Vilazodone HCl [Viibryd] 40 mg PO HS 06/24/21 [History] Amoxicillin/Potassium Clav [Augmentin 875-125 Tablet] 1 tab PO BID 4 Days #8 tab 07/02/21 [Rx] RX: predniSONE 0 mg PO DIRECTED 12 Days #30 tab 07/02/21 [Rx] Follow up Appointment(s)/Referral(s): Gail Thomas MD [STAFF PHYSICIAN] - 1 Week Zachary Meek MD [Primary Care Provider] - 1-2 days Maehndra Yung DO [Doctor of Osteopathic Medicine] - 1 Week Patient Instructions/Handouts: Community Acquired Pneumonia (DC)
[2021-07-03] MEDS: methylPREDNISolone SOD SUCCI 40 MG/ML 1 ML VIAL IV SCH (11:24)
[2021-07-03 11:29] LABS: Glucose,Whole Blood 111 mg/dL (75-99)
--- NOTE | 2021-07-09 10:13 | CDI ---
Documentation Clarification Form Date: 07/05/2021 09:02:00 AM From: Elma Dean Admit Date: 06/24/2021 06:49:00 PM Patient Name: Dallas Quinonez Visit Number: [id number] Discharge Date: 07/03/2021 01:42:00 PM ATTENTION: The Clinical Documentation Specialists (CDI) and [facility] Coding Staff appreciate your assistance in clarifying documentation. Please respond to the clarification below the line at the bottom and electronically sign. The CDI & [facility] Coding staff will review the response and follow-up if needed. Please note: Queries are made part of the Legal Health Record. If you have any questions, please contact the author of this message via ITS. Dr. Valenzuela, Overdose of oral morphine is documented throughout the chart and patient is noted to have aspiration pneumonia and sepsis per query response. Per pulmonary "Suspect aspiration pneumonia related to opiate overdose." Please clarify if there is a relationship between the Overdose of morphine and aspiration pneumonia/sepsis. History/Risk Factors: Patient overdose on morphine. Aspiration pneumonia, sepsis per CDI query response Clinical Indicators: Treatment: Narcan, Rocephin and Zithromax discharged on Zosyn. ID consult Please clarify the relationship, if any, which is clinically appropriate for this patient: [ ] Sepsis due to aspiration pneumonia due to morphine OD [ ] Sepsis due to aspiration pneumonia not due to morphine OD [ ] Other explanation of clinical findings (please specify) [y ] Unable to determine (no explanation for clinical findings) MTDD
--- NOTE | 2021-07-10 21:15 | P.PN ---
Subjective Progress Note Date: 07/03/21 Principal diagnosis: Pneumonia Patient is a 66-year-old male presented to hospital for evaluation of increasing shortness of breath and confusion in this patient did have a CT angiogram suggestive of bilateral lower lobe extensive pneumonia. Patient has been transferred to the ICU because of worsening hypoxemia On today's evaluation that is 07/03/2021, the patient remains to be afebrile, the patient is breathing comfortably on room air, the patient denies any chest pain, the patient cough has decreased in intensity and not bring up any sputum, the patient has abdominal pain and no diarrhea Objective - Vital Signs Vital signs: Vital Signs Temp 98.1 F 07/03/21 07:04 Pulse 76 07/03/21 08:51 Resp 17 07/03/21 07:04 BP 128/72 07/03/21 07:04 Pulse Ox 94 L 07/03/21 07:04 Intake & Output 07/02/21 07/03/21 07/03/21 18:59 06:59 18:59 Other: # Voids 3 2 - Exam GENERAL DESCRIPTION: Middle-aged male lying in bed in no distress RESPIRATORY SYSTEM: Unlabored breathing , decreased breath sounds at bases HEART: S1 S2 regular rate and rhythm , ABDOMEN: Soft , no tenderness EXTREMITIES: No edema feet - Labs CBC & Chem 7: 07/03/21 05:05 07/03/21 05:05 Labs: Abnormal Lab Results - Last 24 Hours (Table) 07/02/21 07/02/21 07/02/21 Range/Units 09:09 16:50 20:04 WBC (4.50-10.00) X 10*3/uL RBC (4.40-5.60) X 10*6/uL Hgb (13.0-17.0) g/dL Hct (39.6-50.0) % RDW (11.5-14.5) % Immature Gran # (0.00-0.04) X 10*3/uL Neutrophils # (1.80-7.70) X 10*3/uL Eosinophils # (0.04-0.35) X 10*3/uL BUN/Creatinine Ratio (12.00-20.00) Ratio POC Glucose (mg/dL) 122 H 127 H (75-99) mg/dL Calcium (8.7-10.3) mg/dL Procalcitonin 0.15 H (0.02-0.09) ng/mL 07/03/21 07/03/21 07/03/21 Range/Units 05:05 05:05 11:26 WBC 16.07 H (4.50-10.00) X 10*3/uL RBC 4.33 L (4.40-5.60) X 10*6/uL Hgb 12.4 L (13.0-17.0) g/dL Hct 38.6 L (39.6-50.0) % RDW 15.2 H (11.5-14.5) % Immature Gran # 0.43 H (0.00-0.04) X 10*3/uL Neutrophils # 13.77 H (1.80-7.70) X 10*3/uL Eosinophils # 0.01 L (0.04-0.35) X 10*3/uL BUN/Creatinine Ratio 21.92 H (12.00-20.00) Ratio POC Glucose (mg/dL) 111 H (75-99) mg/dL Calcium 8.6 L (8.7-10.3) mg/dL Procalcitonin (0.02-0.09) ng/mL Assessment and Plan (1) Bilateral pneumonia Status: Acute Code(s): J18.9 - PNEUMONIA, UNSPECIFIED ORGANISM SNOMED Code(s): 202834779 Plan: 1patient presented hospital with increasing shortness of breath weakness did have a cough in this patient did have elevated white count or low-grade fever and evidence of bilateral lower lobe extensive pneumonia possible community- acquired versus aspiration/gram-negative. Patient has been transferred to the ICU because of hypoxemia 2patient did have elevated CRP procalcitonin sputum for Gram stain culture growing Vesna possible colonizer , urine for urine Legionella antigen is negative. 3patient has shown overall clinical improvement with Zosyn, finishing therapy with oral Augmentin and close outpatient follow-up Time with Patient: Less than 30
== END 2021-07-03 13:42 | disposition home or self-care (01) | DRG 871 ==
LOC: EC 15:21 → 3SCARD 18:49 → 2SICU 06-27 05:24 → 4SSUR 07-01 11:51
PROVIDERS: ADMIT Internal Medicine; ATTEND Internal Medicine
PROC: 05HF33Z Insertion of Infusion Device into Left Cephalic Vein, Percutaneous Approach (ICD-10-PCS; principal; 2021-06-28 18:00)
DX: A41.9 Sepsis, unspecified organism (principal); G92.8 Other toxic encephalopathy; I21.A1 Myocardial infarction type 2; J69.0 Pneumonitis due to inhalation of food and vomit; J80 Acute respiratory distress syndrome; J44.1 Chronic obstructive pulmonary disease with (acute) exacerbation; J44.0 Chronic obstructive pulmonary disease with (acute) lower respiratory infection; N17.9 Acute kidney failure, unspecified; T40.601A Poisoning by unspecified narcotics, accidental (unintentional), initial encounter; M54.9 Dorsalgia, unspecified; R65.20 Severe sepsis without septic shock; M54.2 Cervicalgia; M81.0 Age-related osteoporosis without current pathological fracture; R59.9 Enlarged lymph nodes, unspecified; I71.2 Thoracic aortic aneurysm, without rupture; F32.A Depression, unspecified; E86.0 Dehydration; F17.210 Nicotine dependence, cigarettes, uncomplicated; G89.29 Other chronic pain; I08.3 Combined rheumatic disorders of mitral, aortic and tricuspid valves; M19.90 Unspecified osteoarthritis, unspecified site; Z20.822 Contact with and (suspected) exposure to COVID-19; Z82.49 Family history of ischemic heart disease and other diseases of the circulatory system; Z98.1 Arthrodesis status; Z28.310 Unvaccinated for COVID-19; Z98.890 Other specified postprocedural states
CPT/HCPCS: 36410; 36415; 36600; 70450; 71045; 71046; 71275; 76937; 80048; 80053; 80202; 80306; 81001; 82803; 82805; 83605; 83735; 83880; 84145; 84484; 85025; 85027; 85379; 85610; 85730; 86140; 86738; 87040; 87070; 87205; 87324; 87449; 87635; 93005; 93306; 94640; 94660; 94667; 94668; 94760; 96361; 96365; 96366; 96375; 99285

== ENCOUNTER → 2021-07-30 | Outpatient (CLI) | payer OTHER | END | disposition home or self-care (01) | LOC: LABWHC1 11:31 | PROVIDERS: ATTEND Nurse Practitioner | DX: R00.2 Palpitations (principal) | CPT/HCPCS: 36415; 84443 ==

== ENCOUNTER → 2021-08-16 | Outpatient (CLI) | payer OTHER ==
--- NOTE | 2021-08-16 14:18 | US ---
EXAMINATION TYPE: US venous doppler duplex LE LT DATE OF EXAM: 08/16/2021 1:18 PM COMPARISON: NONE CLINICAL HISTORY: R60.0 LOCALIZED EDEMA. SIDE PERFORMED: Left TECHNIQUE: The lower extremity deep venous system is examined utilizing real time linear array sonog lianet with graded compression, doppler sonography and color-flow sonography. VESSELS IMAGED: Common Femoral Vein Deep Femoral Vein Greater Saphenous Vein * Femoral Vein Popliteal Vein Small Saphenous Vein * Left Leg: Positive for DVT Popliteal Vein. IMPRESSION: 1. Deep venous thrombosis in the left lower extremity including the posterior tibial veins popliteal vein
== END | disposition home or self-care (01) ==
LOC: RADUSWWP 12:42
PROVIDERS: ATTEND Family Medicine
DX: I82.432 Acute embolism and thrombosis of left popliteal vein (principal)

== ENCOUNTER → 2021-08-30 | Outpatient (CLI) | payer OTHER ==
--- NOTE | 2021-09-05 15:32 | US ---
EXAMINATION TYPE: US arterial LE single level DATE OF EXAM: 08/30/2021 1:59 PM CLINICAL HISTORY: I70.213 R60.0. Doppler Waveforms: Right: Multiphasic Left: Multiphasic Pulse Volume Recording: Not obtained on the left Pressure Gradients: Incomplete on the left, no evident gradient on the right Ankle-Brachial Indices: Right: 1.17 Left: Unable to do KARLO's, patient has blood clot in left leg that was diagnosed 08-16-21. Toe Brachial Indices: Right: 1.06 Left: 0.83 IMPRESSION: Exam is limited. There are asymmetric toe brachial indices.
== END | disposition home or self-care (01) ==
LOC: RADUSWWP 13:27
PROVIDERS: ATTEND Family Medicine
DX: I82.402 Acute embolism and thrombosis of unspecified deep veins of left lower extremity (principal)
CPT/HCPCS: 93922

== ENCOUNTER 2021-10-27 17:56 | Emergency (ER) | payer OTHER ==
[2021-10-27 19:14] VITALS: BP 98/64; RESP 18
--- NOTE | 2021-10-27 19:36 | ED ---
SOB HPI - General Chief Complaint: Shortness of Breath Stated Complaint: Covid+,cough,fever Time Seen by Provider: 10/27/21 19:33 Source: patient, RN notes reviewed Mode of arrival: ambulatory - History of Present Illness Initial Comments: Patient is a 66-year-old male presents to the emergency room with complaints of shortness of breath and cough that began yesterday. He took an at home COVID test earlier today which was positive. He states that he would like to receive treatment for COVID. He denies any chest pain, nausea, vomiting, high-grade fevers or chills. He reports some body aches and a T-max of 100.4. He has past medical history significant for osteoarthritis, DVT and pneumonia. - Related Data Home Medications Medication Instructions Recorded Confirmed Ibuprofen [Motrin Ib] 400 mg PO Q8H PRN 06/24/21 06/24/21 Loratadine [Claritin] 10 mg PO DAILY PRN 06/24/21 06/24/21 Morphine Sulfate ER [Ms Contin] 60 mg PO TID 06/24/21 06/24/21 Vilazodone HCl [Viibryd] 40 mg PO HS 06/24/21 06/24/21 Previous Rx's Medication Instructions Recorded Amoxicillin/Potassium Clav 1 tab PO BID 4 Days #8 tab 07/02/21 [Augmentin 875-125 Tablet] predniSONE 0 mg PO DIRECTED 12 Days #30 tab 07/02/21 Nirmatrelvir/Ritonavir [Paxlovid 1 each PO Q12HR 5 Days #10 tab 10/27/21 2X150 mg-100 mg (Eua)] Allergies Allergy/AdvReac Type Severity Reaction Status Date / Time No Known Allergies Allergy Verified 10/27/21 19:14 Review of Systems ROS Statement: Those systems with pertinent positive or pertinent negative responses have been documented in the HPI. ROS Other: All systems not noted in ROS Statement are negative. Past Medical History Past Medical History: Deep Vein Thrombosis (DVT), Osteoarthritis (OA), Pneumonia 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 History of Any Multi-Drug Resistant Organisms: None Reported Additional Past Surgical History / Comment(s): spinal fusion Past Anesthesia/Blood Transfusion Reactions: No Reported Reaction Past Psychological History: No Psychological Hx Reported Smoking Status: Current every day smoker Past Alcohol Use History: None Reported Past Drug Use History: Prescription Drug Abuse - Past Family History Father Family Medical History: Myocardial Infarction ([place]) Mother Family Medical History: Congestive Heart Failure (CHF) General Exam General appearance: alert, in no apparent distress Head exam: Present: atraumatic, normocephalic, normal inspection Eye exam: Present: normal appearance, PERRL, EOMI. Absent: scleral icterus, conjunctival injection, periorbital swelling ENT exam: Present: normal exam, mucous membranes moist Neck exam: Present: normal inspection. Absent: tenderness, meningismus, lymphadenopathy Respiratory exam: Present: normal lung sounds bilaterally. Absent: respiratory distress, wheezes, rales, rhonchi, stridor Cardiovascular Exam: Present: regular rate, normal rhythm, normal heart sounds. Absent: systolic murmur, diastolic murmur, rubs, gallop, clicks GI/Abdominal exam: Present: soft, normal bowel sounds. Absent: distended, tende rness, guarding, rebound, rigid Extremities exam: Present: normal inspection, full ROM, normal capillary refill. Absent: tenderness, pedal edema, joint swelling, calf tenderness Back exam: Present: normal inspection Neurological exam: Present: alert, oriented X3, CN II-XII intact Psychiatric exam: Present: normal affect, normal mood Skin exam: Present: warm, dry, intact, normal color. Absent: rash Course Vital Signs 10/27/21 19:12 Temperature 98.3 F Pulse Rate 99 Respiratory 18 Rate Blood Pressure 98/64 O2 Sat by Pulse 98 Oximetry Medical Decision Making - Medical Decision Making 66-year-old male with history of bilateral pneumonia in June with shortness of breath. Tested positive for Covid today. Chest x-ray ordered by triage nurse. Awaiting results. No need for further laboratory studies or other diagnostic imaging. Vital signs stable without any hypoxia on room air. Will give Toradol for body aches and low-grade temperature. Chest x-ray shows small left pleural effusion and chronic emphysematous changes. Lungs sound overall clear without wheeze and hypoxia no need for admission. Will discharge home on Paxlovid with with close return parameters. Case discussed with Dr. Pollack. - Radiology Data Radiology results: report reviewed, image reviewed Two-view chest x-ray shows small left pleural effusion and chronic emphysematous changes. Disposition Clinical Impression: COVID-19 Disposition: HOME SELF-CARE Condition: Stable Instructions (If sedation given, give patient instructions): COVID-19 (Coronavirus Disease 2019) (ED) Additional Instructions: Please quarantine for 5 days after testing positive and restart quarantine if symptoms worsen. Please utilize Tylenol as needed for fevers and pain. Taking vitamin C, Zinc, vitamin D 50 mcg, and melatonin may help symptom recovery. Please return to the Emergency Department if symptoms worsen or any other concerns. Prescriptions: Nirmatrelvir/Ritonavir [Paxlovid 2X150 mg-100 mg (Eua)] 1 each PO Q12HR 5 Days #10 tab Is patient prescribed a controlled substance at d/c from ED?: No Referrals: Ryan Adan MD [Primary Care Provider] - 1-2 days Time of Disposition: 21:02
[2021-10-27] MEDS ORDERED: KETOROLAC 15 MG/ML 1 ML VIAL IM STA (20:40)
--- NOTE | 2021-10-27 20:48 | XR ---
EXAMINATION TYPE: XR chest 2V DATE OF EXAM: 10/27/2021 7:26 PM COMPARISON: Chest x-ray 07/26/2021 TECHNIQUE: XR chest 2V . CLINICAL INDICATION:Male, 66 years old with history of cough; FINDINGS: Lungs/Pleura: Mild emphysematous changes. No evidence for pneumothorax or focal airspace consolidatio n. Blunting of the left costophrenic angle suggesting small pleural effusion. Pulmonary vascularity: Unremarkable. Heart/mediastinum: Cardiomediastinal silhouette is unremarkable. Musculoskeletal: No acute osseous pathology. There is fixation hardware in the lower cervical spine. Partially visualized right shoulder arthroplasty. IMPRESSION: 1. Small left pleural effusion. 2. Chronic emphysematous changes.
[2021-10-27 21:14] VITALS: PULSE 75; TEMP 98.2
== END 2021-10-27 21:16 | disposition home or self-care (01) ==
LOC: EC 17:56
DX: U07.1 COVID-19 (principal); F17.200 Nicotine dependence, unspecified, uncomplicated; Z82.49 Family history of ischemic heart disease and other diseases of the circulatory system
CPT/HCPCS: 71046; 99284; 96372; J1885

== ENCOUNTER → 2022-08-26 | Outpatient (CLI) | payer OTHER ==
--- NOTE | 2022-08-26 15:34 | US ---
EXAMINATION TYPE: US kidneys/renal and bladder DATE OF EXAM: 08/26/2022 COMPARISON: NONE CLINICAL INDICATION: Male, 67 years old with history of N18.9 CKD; EXAM MEASUREMENTS: Right Kidney: 9.9 x 4.1 x 5.4 cm Left Kidney: 9.7 x 5.0 x 5.2 cm Post Void Residual Volume: 39.26 mL Multiple grayscale and color Doppler ultrasound images of the kidneys and urinary bladder were obtain ed. Right Kidney: No hydronephrosis or masses seen Left Kidney: No hydronephrosis or masses seen Bladder: wnl Bilateral Jets seen: Yes Normal Post Void Residual: Yes There is no evidence for hydronephrosis at this point in time. No nephrolithiasis is seen. Cortical medullary differentiation is maintained bilaterally. No masses are identified. The urinary bladder i s anechoic and underdistended. Bilateral ureteral jets are seen. IMPRESSION: No evidence of hydronephrosis or nephrolithiasis.
== END | disposition home or self-care (01) ==
LOC: RADUSWWP 14:36
PROVIDERS: ATTEND Family Medicine
DX: N18.9 Chronic kidney disease, unspecified (principal); R39.198 Other difficulties with micturition
CPT/HCPCS: 76770

== ENCOUNTER → 2022-10-22 | Outpatient (CLI) | payer OTHER ==
[2022-10-22 10:32] LABS: African American GFR (CKD) 74 (>60 ml/min/1.73 sqM); Blood Urea Nitrogen 22 mg/dL (9-20); Non-African American GFR(CKD) 64 (>60 ml/min/1.73 sqM)
--- NOTE | 2022-10-22 11:45 | CT ---
EXAMINATION TYPE: CT angio chest DATE OF EXAM: 10/22/2022 COMPARISON: 06/24/2021 HISTORY: Elevated D-dimer, History of blood clots CT DLP: 339.70 mGycm CONTRAST: CT chest with contrast and 3D reconstruction with MIP imaging is performed without and with IV Contra st, patient injected with 100 ml mL of Isovue 370. Contrast-enhanced CT of the chest was performed through the course of the pulmonary arteries with kaz g and mediastinal window settings submitted. 3D reconstruction with MIP imaging was also performed. PULMONARY ARTERIES: The pulmonary arteries and their major tributaries are patent. I do not see aislinn dence for sizable filling defect to suggest pulmonary embolic process. LUNGS: The lungs are clear and free of infiltrate. No evidence for atelectasis. No pulmonary nodule or mass is detected. No pleural effusion. Lower lobe bronchiectasis redemonstrated. Resolution of previously noted infiltrates. MEDIASTINUM: Ascending thoracic aortic aneurysm measuring 4.1 cm AP dimension unchanged from prior st udy. The heart is moderately enlarged. No evidence for mediastinal mass. No mediastinal lymph nodes greater than 1cm. HILAR STRUCTURES: No evidence for mass. No hilar lymph nodes greater than 1 cm. UPPER ABDOMEN: No significant abnormality is seen. IMPRESSION: 1. No evidence for Pulmonary embolism at this time.
== END | disposition home or self-care (01) ==
LOC: RADCTMAIN 09:51
PROVIDERS: ATTEND Family Medicine
DX: R79.89 Other specified abnormal findings of blood chemistry (principal); Z86.718 Personal history of other venous thrombosis and embolism
CPT/HCPCS: 82565; 84520; 71275; 36415; Q9967

== ENCOUNTER 2024-08-09 07:52 | Day surgery (SDC) | payer MEDICARE, BC ==
[2024-08-05 09:03] VITALS: BMI 28.0
--- NOTE | 2024-08-05 10:24 | P.HPIHPCON ---
History of Present Illness H&P Date: 08/05/24 Chief Complaint: BPH This is a 69-year-old male with history of BPH. Patient is having obstructive urinary symptoms despite medical therapy. Underwent a cystoscopy that showed evidence of a bilateral obstructive prostate. Discussed with him the option of a TURP versus a UroLift. Risk-benefit of each approach were discussed. He agreed to proceed with the UroLift. He is aware of the risk which include but not limited to bleeding, infection, urinary incontinence, discussed the potential of persistent symptoms even with a UroLift. He understood all the risk and agreed to proceed Consent for Procedure: I have explained the operation/procedure to the patient, including the risks, benefits, side effects, alternative therapies (including not receiving the proposed treatment or service), the likelihood of the patient achieving his/her goals, and potential recuperation problems for the procedure/sedation/analgesia, as well as any blood products, if indicated. I also explained to the patient the risks, benefits and side effects of the alternatives, as well as the risks related to not receiving the proposed procedure, care, treatment, or services. Past Medical History Past Medical History: Deep Vein Thrombosis (DVT), Osteoarthritis (OA), Pneumonia Additional Past Medical History / Comment(s): Arthritis History of Any Multi-Drug Resistant Organisms: None Reported Additional Past Surgical History / Comment(s): spinal fusion, 2 rods in his back. R shoulder replacement, several ear surgeries in the past Past Anesthesia/Blood Transfusion Reactions: No Reported Reaction Smoking Status: Former smoker - Past Family History Father Family Medical History: Myocardial Infarction ([place]) Mother Family Medical History: Congestive Heart Failure (CHF) Medications and Allergies Home Medications Medication Instructions Recorded Confirmed Type Morphine Sulfate ER [Ms Contin] 30 mg PO BID 06/24/21 08/05/24 History Montelukast [Singulair] 10 mg PO DAILY 08/05/24 08/05/24 History Rosuvastatin [Crestor] 10 mg PO DAILY 08/05/24 08/05/24 History Allergies Allergy/AdvReac Type Severity Reaction Status Date / Time No Known Allergies Allergy Verified 08/05/24 08:44 Surgical - Exam - General no distress, no pain - Eyes normal ocular movement, no pale - ENT normal nares, normal mucosa - Respiratory normal expansion, normal respiratory effort - Abdomen Abdomen: soft, non tender Assessment and Plan Assessment: OR for Urolift
[~2024-08-09 07:52] MED LIST: LIDOCAINE 1% (10MG/ML) FOR IV START INTRADERMA PRN; MIDAZOLAM 2 MG/2 ML VIAL IV PRN; fentaNYL (PF) 50 MCG/ML 2 ML AMP IVP PRN
[2024-08-09] MEDS: IV FLUID CONTINUATION 1,000 ML IV ONE (08:23)
[2024-08-09] MEDS: ONDANSETRON 4 MG/2 ML VIAL IVP ONE (08:49)
[2024-08-09] MEDS: LACTATED RINGERS 1,000 ML IV SCH (08:49)
[2024-08-09] MEDS: DEXAMETHASONE SOD PHOSPHATE 4 MG/ML 1 ML VIAL IV ONE (08:49)
[2024-08-09] MEDS ORDERED: fentaNYL (PF) 50 MCG/ML 2 ML AMP ONE (09:23)
[2024-08-09] MEDS ORDERED: PROPOFOL 10 MG/ML 20 ML VIAL IV ONE (09:23)
[2024-08-09] MEDS ORDERED: MIDAZOLAM 2 MG/2 ML VIAL ONE (09:23)
[2024-08-09] MEDS ORDERED: LIDOCAINE 1% INJ 10MG/ML (20 ML MDV) ONE (09:23)
[2024-08-09] MEDS: ceFAZolin 2 GM in DEXTROSE 5% IN WATER 50 ML IVPB PRN (09:28)
[2024-08-09 10:12] VITALS: TEMP 97.3
--- NOTE | 2024-08-09 10:18 | P.OP ---
Date of Procedure: 08/09/24 Preoperative Diagnosis: BPH Postoperative Diagnosis: Same Procedure(s) Performed: UroLift x 6 Implants: UroLift clips Anesthesia: JOCELINA Surgeon: Lalo Avila Estimated Blood Loss (ml): 5 Pathology: none sent Condition: stable Disposition: PACU Indications for Procedure: This is a 69-year-old male with history of BPH. Patient is having obstructive urinary symptoms despite medical therapy. Underwent a cystoscopy that showed evidence of a bilateral obstructive prostate. Discussed with him the option of a TURP versus a UroLift. Risk-benefit of each approach were discussed. He agreed to proceed with the UroLift. He is aware of the risk which include but not limited to bleeding, infection, urinary incontinence, discussed the potential of persistent symptoms even with a UroLift. He understood all the risk and agreed to proceed Description of Procedure: Patient was brought to the operating room, general anesthesia was induced. He was prepped and draped in sterile fashion and placed in dorsal lithotomy position. Cystoscopy fitted with 20-Upper Sorbian sheath was inserted per urethra, of note patient had narrowing at the bulbar urethra, I was able to navigate the 20 Upper Sorbian scope past the narrowing and into the bladder, cystoscopy was performed which showed no abnormality within the bladder, of note patient had bilateral obstructive lateral lobes. Attention was then carried to the urolift implants. A total of 6 implants were placed, 3 on the right side, and 3 on the left side. Implants were placed distal to the bladder neck, but proximal to the Veru. Repeat cystoscopy showed no evidence of implant perforation into the bladder. Repeat cystoscopy also demonstrated an open anterior channel within the prostate. There was no evidence of bleeding, bladder was emptied at end of the case. Patient tolerated the procedure well was taken to PACU in stable condition,
[2024-08-09] MEDS: HYDROmorphone 0.5 MG/0.5 ML SYRINGE IVP PRN (10:33)
[2024-08-09 11:23] VITALS: BP 136/73; PULSE 69; RESP 16
== END 2024-08-09 12:13 | disposition home or self-care (01) ==
LOC: OR 07:52
PROVIDERS: ATTEND Urology
DX: N40.0 Benign prostatic hyperplasia without lower urinary tract symptoms (principal); M19.90 Unspecified osteoarthritis, unspecified site; H91.90 Unspecified hearing loss, unspecified ear; Z86.718 Personal history of other venous thrombosis and embolism; Z87.891 Personal history of nicotine dependence; Z79.899 Other long term (current) drug therapy
CPT/HCPCS: L8699; J2250; J1100; J0690; J2405; J2003; J3010; J2704; J1171; C9740